=== PATIENT | male | born 1980 | race Caucasian/White ===

== ENCOUNTER 2018-10-05 05:41 | Inpatient (IN) | payer MEDICARE, OTHER ==
[~2018-10-05] VITALS: Ht 167.6 cm; Wt 79.5 kg
[2018-10-05] VITALS (58 sets, daily range): BP systolic 66–107; BP diastolic 36–89; PULSE 66–130; RESP 28; Ht 167.6 cm; Wt 79.5 kg
[2018-10-05] MEDS ORDERED: VANCOMYCIN 1 GM (PMX) 250 ML IVPB STA (05:52)
[2018-10-05] MEDS ORDERED: SODIUM CHLORIDE 0.9% 1L BAG IV* STA (05:52)
[2018-10-05] MEDS ORDERED: CEFEPIME 2GM/50 ML (PMX) 50 ML IVPB STA (05:52)
[2018-10-05] MEDS ORDERED: DOPamine-D5W 1.6 MG/ML 250 ML IV STA (06:08)
[2018-10-05] MEDS ORDERED: FENTAnyl 50 MCG/ML VIAL IV STA (06:09)
[2018-10-05] MEDS ORDERED: SODIUM CHLORIDE 0.9% 500 ML BAG IV* STA (06:09)
[2018-10-05] MEDS ORDERED: VECURONIUM 100 MG in DEXTROSE 5% 100 ML IV ONE (06:09)
[2018-10-05] MEDS ORDERED: VECURONIUM 10 MG VIAL IV ONE (06:30)
--- NOTE | 2018-10-05 06:40 | ERD ---
ER Documentation Chief Complaint Chief Complaint BIB RA81 in cardiac arrest HPI Patient is a 37-year-old male who presents in full cardiac arrest. The patient was found by paramedics at 4:50 AM in full cardiac arrest. He had had 20 minutes of downtime without CPR prior to go go dancer arrival. There was a significant amount of medications given by paramedics while in the field. The patient was being bagged and receiving CPR throughout. They were able to get pulses back once but quickly lost them. The patient did receive the fibrillation for ventricular fibrillation at one point. The brother brought in pill bottles of alprazolam and [place] and there is a concern for potential overdose. I cannot obtain history otherwise so please note the history and physical exam is limited. ROS All systems reviewed and are negative except as per history of present illness. PMhx/Soc Medical and Surgical Hx: pt denies Surgical Hx Hx Respiratory Disorders: Yes (asthma) Hx Alcohol Use: Yes Hx Substance Use: Yes (found 3 bottles on patient) Hx Tobacco Use: Yes Smoking Status: Never smoker FmHx Unable to obtain Physical Exam Vitals Vital Signs Date Temp Pulse Resp B/P (MAP) Pulse Ox O2 O2 Flow FiO2 Time Delivery Rate 10/05/18 Nasal 05:59 Cannula 10/05/18 96.0 52 19 63/43 (50) 100 Room Air 05:59 Physical Exam Const: For cardiac arrest, being bagged Head: Atraumatic Eyes: Pupils are fixed and dilated ENT: Being bagged by respiratory therapy Neck: Full range of motion. No meningismus. Resp: Clear to auscultation bilaterally Cardio: Regular rate and rhythm, no murmurs Abd: Soft, non tender, non distended. Normal bowel sounds Skin: No petechiae or rashes Back: No midline or flank tenderness Ext: No cyanosis, or edema Neur: GCS 3, no neurologic function or movement, pupils fixed and dilated Result Diagram: 10/05/18 0500 Results 24 hrs Laboratory Tests Test 10/05/18 05:00 10/05/18 06:17 10/05/18 06:19 White Blood Count 16.4 10^3/ul Red Blood Count 5.14 10^6/ul Hemoglobin 14.2 g/dl Hematocrit 49.4 % Mean Corpuscular Volume 96.1 fl Mean Corpuscular Hemoglobin 27.6 pg Mean Corpuscular Hemoglobin Concent 28.7 g/dl Red Cell Distribution Width 13.6 % Platelet Count 191 10^3/UL Mean Platelet Volume 10.0 fl Immature Granulocytes % 8.200 % Neutrophils % 42.3 % Lymphocytes % 43.8 % Monocytes % 4.0 % Eosinophils % 0.8 % Basophils % 0.9 % Nucleated Red Blood Cells % 0.7 /100WBC Immature Granulocytes # 1.340 10^3/ul Neutrophils # 7.0 10^3/ul Lymphocytes # 7.2 10^3/ul Monocytes # 0.7 10^3/ul Eosinophils # 0.1 10^3/ul Basophils # 0.2 10^3/ul Nucleated Red Blood Cells # 0.1 10^3/ul Prothrombin Time 18.7 Sec Prothrombin Time Ratio 1.5 INR International Normalized Ratio 1.55 Activated Partial Thromboplast Time Pending POC Venous Lactate 10.0 mmol/L Bedside Glucose 306 mg/dL Current Medications Medications Dose Sig/[place] Start Time Status Last (Trade) Ordered Route PRN Stop Time Admin Dose Reason Admin Sodium 2,390 ml BOLUS OVER 2 10/05/18 DC Chloride HOURS STAT 05:52 10/05/18 (NS) IV* 05:54 Cefepime HCl 50 ml @ ONCE STAT 10/05/18 DC 100 mls/hr IVPB 05:52 10/05/18 06:21 Vancomycin 250 ml @ ONCE STAT 10/05/18 HCl 125 mls/hr IVPB 05:52 10/05/18 07:51 Dopamine 250 ml @ 0 ONCE STAT 10/05/18 DC 10/05/18 HCl/ mls/hr IV 06:08 10/05/18 06:07 Dextrose 06:09 Sodium 500 ml ONCE STAT 10/05/18 DC Chloride IV* 06:09 10/05/18 (NS) 06:12 Fentanyl 50 mcg ONCE STAT 10/05/18 DC (Sublimaze) IV 06:09 10/05/18 06:12 Midazolam 50 ml @ 2 ONCE IV 10/05/18 HCl mls/hr 06:30 Vecuronium 10 mg ONCE ONCE 10/05/18 DC [place] IV 06:30 10/05/18 ([place]cur[place]) 06:31 Vecuronium 100 ml @ [id number] 10/05/18 [place] 100 4.77 mls/hr ONCE IV 06:09 10/06/18 mg/ Dextrose 03:06 Procedures/MDM Endotracheal Intubation by me: Pre assessment performed. Pre-oxygenation performed with 100% oxygen RSI: Performed w/o complication or hypoxic events. Medications as ordered. Blade: MAC 4 video laryngoscope ET Tube: 7.5 cm Depth: 23 cm at the lip Intubation confirmed by colorimetric CO2, equal breath sounds, quiet over the stomach. Chest X-ray 1V Interpreted by me: 5 cm above the jamir ET tube. Tube will be advanced 2 cm by respiratory therapy. Central line in place, no pneumothorax, normal soft tissue. Central Line Placement by me: Patient consented, sterilely draped, full prep, gown, glove, mask, time out performed. Anesthesia: 1% lidocaine locally Location: Left subclavian Device: Multiple lumen Technique: Seldinger technique. Secured with suture. Results: Venous return from all ports with easy saline flush. No complications. Guide wire retrieved and disposed of. EKG read by me: Rate/Rhythm: Regular rate and rhythm at a normal rate Intervals: Normal Impression: Right bundle branch block without ST elevations, there are ST depressions Patient is a 37-year-old male presents in full cardiac arrest. The patient was intubated immediately upon arrival and high-quality CPR was continued. After a few rounds of CPR we did return spontaneous circulation. A central line was placed for access and pressor administration. The patient started to become bradycardic so a dopamine drip was started. The patient's lactic acid is greater than 10 on the [id number] but I doubt sepsis at this time. I doubt septic shock. I believe this is likely related to overdose and cardiac arrest. The patient will be given 30 mils per kilogram fluid bolus and vancomycin and cefepime empirically but at this point I do not see any obvious source of infection. The patient will be started on the hypothermia protocol. I spoke with Dr. Francois immediately after the EKG was done to discuss going to the cardiac Digital Specialist but we agree that given the history of overdose and an EKG which does not show ST elevations that he would not need to go directly to the cardiac Digital Specialist at this time. The patient will be admitted to the care of Dr. Monk from the panel team to a ICU bed. Critical Care: Time: 45 minutes excluding all billable procedures. Treatments/Evaluations: Close monitoring and treatment of unstable vital signs, cardiorespiratory, and neurologic status, while maintaining tight balance of fluid, respiratory, and cardiac interventions. Departure Diagnosis: Primary Impression: Respiratory failure Chronicity: acute Respiratory failure complication: hypoxia and hypercapnia Qualified Codes: J96.01 - Acute respiratory failure with hypoxia; J96.02 - Acute respiratory failure with hypercapnia Additional Impression: Cardiac arrest Condition: Critical FELISHA STANTON MD October 05, 2018 06:40
[2018-10-05] MEDS ORDERED: IPRATROPIUM (HFA) 12.9 GM INHALER INH PRN (07:00)
[2018-10-05] MEDS ORDERED: ALBUTEROL HFA 8 GM INHALER INH PRN (07:00)
[2018-10-05] MEDS ORDERED: EPINEPHrine 0.1 MG/ML SYG ONE (07:00)
[2018-10-05] MEDS ORDERED: ACETAMINOPHEN 650MG/20.3ML CUP PO PRN (07:00)
[2018-10-05] MEDS ORDERED: CA CHLORIDE 10% 10 ML SYRINGE ONE (07:00)
[2018-10-05] MEDS ORDERED: ALBU18HF INHALATION (07:13)
[2018-10-05] MEDS ORDERED: ACET1TAB40 PO (07:14)
[2018-10-05] MEDS ORDERED: ALPR2TAB PO (07:14)
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
[2018-10-05] MEDS: MIDAZOLAM (DRIP) 50 mg/50 mL 50 ML IV SCH ×2 (08:44→08:48)
--- NOTE | 2018-10-05 09:08 | CONS ---
Assessment/Plan Assessment/Plan Assessment/Plan (Daily) Cardiac arrest down for approximately 20 to 30 minutes Anoxic encephalopathy Long bout of cardiopulmonary resuscitation Hypoxic respiratory failure intubated Opioids and benzodiazepines in tox screen Both myself and Dr Fernandez has spoken to family members. We have given him an update of his current clinical condition and emphasized the fact that he has a very poor prognosis. We emphasized that we will be following his neurological condition primarily not to exclude his current catastrophic medical condition. Family members are understandably devastated. Consultation Date/Type/Reason Admit Date/Time Date/Time of Note DATE: 10/05/18 TIME: 09:06 Past Medical History Medical History: other (Unknown) Home Meds Reported Medications Acetaminophen with Codeine (Acetaminophen-Cod #3 Tablet) 1 Each Tablet, 1 TAB PO BID PRN for PAIN, #7 TAB 10/05/18 Alprazolam* (Xanax*) 2 Mg Tablet, 2 MG PO BID PRN for ANXIETY, TAB 10/05/18 Albuterol Sulfate* (Ventolin HFA*) 18 Gm Hfa.aer.ad, 2 PUFF INHALATION Q4H, #1 INHALER 10/05/18 Medications Current Medications Midazolam HCl 50 ml @ 2 mls/hr ONCE IV ; Start 10/05/18 at 06:30 Vecuronium [place] 100 mg/ Dextrose 100 ml @ 4.77 mls/hr [id number] ONCE IV ; Start 10/05/18 at 06:09; Stop 10/06/18 at 03:06 Albuterol (Ventolin Hfa) 4 puff Q2H RESP THERAPY PRN INH SHORTNESS OF BREATH; Start 10/05/18 at 07:00 Ipratropium [place] (Atrovent Hfa) 4 puff Q2H RESP THERAPY PRN INH SHORTNESS OF BREATH; Start 10/05/18 at 07:00 Acetaminophen (Tylenol Liquid) 650 mg Q6H PRN PO PAIN LEVEL 1-3 OR FEVER; Start 10/05/18 at 07:00 Pantoprazole (Protonix Iv) 40 mg DAILY@06 IV ; Start 10/05/18 at 08:00 Sodium Bicarbonate 150 meq/Dextrose 1,000 ml @ 100 mls/hr Q10H IV ; Start 10/05/18 at 07:00 Allergies: Coded Allergies: peanut oil (Verified Allergy, Unknown, 10/05/18) Past Surgical History Past Surgical Hx: other (Unknown) Family History Significant Family History: other (Unknown) Social History Alcohol Use: occasionally Smoking Status: Unknown if ever smoked Drug Use: marijuana, other (To be determined with patient's tox screen before being given opioids and benzodiazepine in the emergency room was positive for opioids and benzodiazepines) Exam/Review of Systems Exam Vitals Vital Signs Date Temp Pulse Resp B/P (MAP) Pulse Ox O2 O2 Flow FiO2 Time Delivery Rate 10/05/18 77 28 100 100 07:30 10/05/18 Nasal 06:24 Cannula 10/05/18 96.0 94/64 (74) 06:24 Constitutional: other (Intubated nonresponsive) Respiratory: congested cough, crackles/rales, diminished breath sounds, labored breathing Cardiovascular: regular rate and rhythm, nl pulses, S4 (Nonresponsive to any verbal or tactile stimulation bilateral pupils fixed dilated no oculocephalics on examination) Skin: other (No tract carmona) Results Result Diagram: 10/05/18 0805 10/05/18 0800 Results 24hrs Laboratory Tests Test 10/05/18 05:00 10/05/18 05:52 10/05/18 06:17 10/05/18 06:19 White Blood Count 16.4 H Red Blood Count 5.14 Hemoglobin 14.2 Hematocrit 49.4 Mean Corpuscular 96.1 Volume Mean Corpuscular 27.6 L Hemoglobin Mean Corpuscular 28.7 L Hemoglobin Concent Red Cell 13.6 Distribution Width Platelet Count 191 Mean Platelet 10.0 Volume Immature 8.200 H Granulocytes % Neutrophils % 42.3 Segmented 68 Neutrophils % (Manual) Band Neutrophils % 6 H (Manual) Lymphocytes % 43.8 Lymphocytes % 15 (Manual) Monocytes % 4.0 Monocytes % 8 (Manual) Eosinophils % 0.8 Eosinophils % 1 (Manual) Basophils % 0.9 Basophils % 2 (Manual) Nucleated Red 0.7 H Blood Cells % Immature 1.340 H Granulocytes # Neutrophils # 7.0 Neutrophils # 11.3 H (Manual) Band Neutrophils # 0.9 H Lymphocytes 2.4 (Manual) Lymphocytes # 7.2 H Monocytes # 0.7 Monocytes # 1.3 H (Manual) Eosinophils # 0.1 Basophils # 0.2 H Basophils # 0.3 H (Manual) Nucleated Red 0.1 H Blood Cells # Platelet Estimate NORMAL Giant Platelets 1 H Polychromasia 1+ Anisocytosis 2+ Microcytosis 2+ Prothrombin Time 18.7 H Prothrombin Time 1.5 Ratio INR International 1.55 Normalized Ratio Activated 86.9 *H Partial Thrombopla st Time Blood Gas Specimen Blood arterial Source Arterial Blood 10/05/2018 6:20:57 Date Drawn AM Arterial Blood pH 6.759 *L (Temp corrected) Arterial Blood 79.8 H pCO2 (Temp correct) Arterial Blood pO2 251.2 H (Temp corrected) Arterial Blood 11.0 L HCO3 Arterial Blood -25.8 L Base Excess Arterial Blood 98.5 H Oxygen Saturation Willie Test ACCEPTAB Arterial Blood Gas Right Radial Puncture Site Arterial 8.1 H Blood Carboxyhemog lobin Arterial Blood 0.4 Methemoglobin Blood Gas A-a O2 382.0 H Differential Oxyhemoglobin 90.1 L Percent Blood Gas 37.0 Temperature Blood Gas 20.0 Respiration Rate Blood Gas Actual 20 Respiration Rate Blood Gas Modality VENT - AC FiO2 100.0 Blood Gas Tidal 500.0 Volume Blood Gas Low PEEP 0 Setting Blood Gas Critical Peng STANTON MD Value Read Back Blood Gas Notified MA Whom Blood Gas Notified 10/05/2018 6:31:54 Time AM POC Venous Lactate 10.0 *H Bedside Glucose 306 H Test 10/05/18 07:14 10/05/18 08:00 10/05/18 08:05 Urine Color YELLOW Urine Clarity CLOUDY A Urine pH 6.0 Urine Specific 1.022 [place] Urine Ketones NEGATIVE Urine Nitrite NEGATIVE Urine Bilirubin NEGATIVE Urine Urobilinogen NEGATIVE Urine Leukocyte NEGATIVE Esterase Urine Microscopic 76 H RBC Urine Microscopic 22 H WBC Urine Bacteria FEW A Urine Mucus MANY A Urine Hemoglobin 2+ H Urine Glucose 2+ H Urine Total 3+ H Protein Urine Opiates Positive Screen Urine Barbiturates Negative Urine Amphetamines Negative Screen Urine Positive Benzodiazepines Screen Urine Cocaine Negative Screen Urine Cannabinoids Positive Sodium Level 145 H Potassium Level 6.1 *H Chloride Level 107 Carbon Dioxide 17 L Level Anion Gap 21 H Blood Urea 14 Nitrogen Creatinine 1.80 H Est Glomerular 43 L Filtrat Rate mL/min Glucose Level 390 H Lactic Acid Level 14.9 *H Calcium Level 9.3 Phosphorus Level 15.0 H Magnesium Level 3.3 H Total Bilirubin 0.2 Direct Bilirubin 0.00 Indirect Bilirubin 0.2 Aspartate Amino 297 H Transf (AST/SGOT) Alanine 373 H Aminotransferase ( ALT/SGPT) Alkaline 71 Phosphatase Creatine Kinase 588 H Creatine Kinase 1.8 Index Creatinine Kinase 10.40 H MB (Mass) Troponin I 0.261 *H Total Protein 5.9 L Albumin 3.4 Globulin 2.50 Albumin/Globulin 1.36 Ratio Lipase 1085 H Salicylates Level < 1.0 L Acetaminophen < 10.0 L Level Ethyl Alcohol < 10.0 H Level Platelet Count 309 Prothrombin Time 18.8 H Prothrombin Time 1.5 Ratio INR International 1.56 Normalized Ratio Activated 81.3 *H Partial Thrombopla st Time Thrombin Time 28.4 H Fibrinogen 142.0 L Plasma Fibrin Degradation Produc ts D-Dimer Pending Medications Medication Current Medications Midazolam HCl 50 ml @ 2 mls/hr ONCE IV ; Start 10/05/18 at 06:30 Vecuronium [place] 100 mg/ Dextrose 100 ml @ 4.77 mls/hr [id number] ONCE IV ; Start 10/05/18 at 06:09; Stop 10/06/18 at 03:06 Albuterol (Ventolin Hfa) 4 puff Q2H RESP THERAPY PRN INH SHORTNESS OF BREATH; Start 10/05/18 at 07:00 Ipratropium [place] (Atrovent Hfa) 4 puff Q2H RESP THERAPY PRN INH SHORTNESS OF BREATH; Start 10/05/18 at 07:00 Acetaminophen (Tylenol Liquid) 650 mg Q6H PRN PO PAIN LEVEL 1-3 OR FEVER; Start 10/05/18 at 07:00 Pantoprazole (Protonix Iv) 40 mg DAILY@06 IV ; Start 10/05/18 at 08:00 Sodium Bicarbonate 150 meq/Dextrose 1,000 ml @ 100 mls/hr Q10H IV ; Start 10/05/18 at 07:00 SAIMA WILDER October 05, 2018 09:08
[2018-10-05] MEDS: SODIUM BICARBONATE (IV ADD) 150 MEQ in DEXTROSE 5% 1,000 ML IV SCH ×3 (09:12→19:21)
[2018-10-05] MEDS: ACCU-CHEK XX SCH ×15 (10:00→23:56)
[2018-10-05] MEDS ORDERED: DEXTROSE 50% 50 ML SYRINGE IV PRN ×2 (10:00)
--- NOTE | 2018-10-05 11:03 | CONS ---
Assessment/Plan Assessment/Plan Assessment/Plan (Daily) Chest x-ray showing bilateral infiltrates indicative of possibly underlying pulmonary edema versus pneumonia. Ventilator setting; AC of 28, tidal volume 550, PEEP of 0, 100% FiO2. Patient is on hypothermia protocol and is paralyzed and sedated. Assessment and recommendations; 1. Patient admitted with cardiac arrest with long CPR lasting 1 hour likely with ensuing severe anoxic brain injury. Pupils are dilated and fixed. 2. Bilateral pulmonary edema versus possible aspiration pneumonia. 3. Profound metabolic acidosis. 4. Likely acute renal injury. 5. Mild hypotension. Continue current supportive care. Obtain another ABG. Further recommendations once ABG is performed. Broad-spectrum antimicrobial coverage. Monitor renal function. Prognosis extremely guarded and will depend entirely upon adequate mental status recovery. 35 minutes of critical care time was spent evaluating the patient. Consultation Date/Type/Reason Admit Date/Time Date of Consultation: October 05, 2018 Type of Consult Pulmonary/critical care Patient is a 37-year-old male who was brought into the hospital after cardiac arrest event at home. Long CPR was done lasting 1 hour with revival of vital signs. Patient is currently on hypothermia protocol and orally intubated. Past medical history; noncontributory. Medications; reviewed. Allergies; peanut oil. Social history; not available. Family history; not available. Occupational history; not available. Review of systems; unable to be obtained. General exam; young male, orally intubated, on hypothermia protocol. Sedated and paralyzed. Date/Time of Note DATE: 10/05/18 TIME: 10:59 Past Medical History Medical History: other (Unknown) Home Meds Reported Medications Acetaminophen with Codeine (Acetaminophen-Cod #3 Tablet) 1 Each Tablet, 1 TAB PO BID PRN for PAIN, #7 TAB 10/05/18 Alprazolam* (Xanax*) 2 Mg Tablet, 2 MG PO BID PRN for ANXIETY, TAB 10/05/18 Albuterol Sulfate* (Ventolin HFA*) 18 Gm Hfa.aer.ad, 2 PUFF INHALATION Q4H, #1 INHALER 10/05/18 Medications Current Medications Midazolam HCl 50 ml @ 2 mls/hr ONCE IV Last administered on 10/05/18at 08:48; Admin Dose 4.77 MLS/HR; Start 10/05/18 at 06:30 Vecuronium [place] 100 mg/ Dextrose 100 ml @ 4.77 mls/hr [id number] ONCE IV ; Start 10/05/18 at 06:09; Stop 10/06/18 at 03:06 Albuterol (Ventolin Hfa) 4 puff Q2H RESP THERAPY PRN INH SHORTNESS OF BREATH; Start 10/05/18 at 07:00 Ipratropium [place] (Atrovent Hfa) 4 puff Q2H RESP THERAPY PRN INH SHORTNESS OF BREATH; Start 10/05/18 at 07:00 Acetaminophen (Tylenol Liquid) 650 mg Q6H PRN PO PAIN LEVEL 1-3 OR FEVER; Start 10/05/18 at 07:00 Pantoprazole (Protonix Iv) 40 mg DAILY@06 IV ; Start 10/05/18 at 08:00 Sodium Bicarbonate 150 meq/Dextrose 1,000 ml @ 100 mls/hr Q10H IV Last administered on 10/05/18at 09:12; Admin Dose 100 MLS/HR; Start 10/05/18 at 07:00 Diagnostic Test (Pha) (Accu-Chek) 1 ea Q1H XX ; Start 10/05/18 at 10:00 Insulin Human Regular 100 unit/ Sodium Chloride 100 ml @ 0 mls/hr PER PROTOCOL IV ; Start 10/05/18 at 10:00 Miscellaneous Information (* Miscellaneous Pharmacy Order) Treatment of Hypog lycemia: 1.BG 51... Per protocol XX ; Start 10/05/18 at 10:00 Dextrose (D50w Syringe) 25 ml Q15M PRN IV .DECREASED GLUCOSE; Start 10/05/18 at 10:00 Dextrose (D50w Syringe) 50 ml Q15M PRN IV .DECREASED GLUCOSE; Start 10/05/18 at 10:00 Allergies: Coded Allergies: peanut oil (Verified Allergy, Unknown, 10/05/18) Past Surgical History Past Surgical Hx: other (Unknown) Social History Alcohol Use: occasionally Smoking Status: Unknown if ever smoked Drug Use: marijuana, other (To be determined with patient's tox screen before being given opioids and benzodiazepine in the emergency room was positive for opioids and benzodiazepines) Exam/Review of Systems Exam Vitals Vital Signs Date Temp Pulse Resp B/P (MAP) Pulse Ox O2 O2 Flow FiO2 Time Delivery Rate 10/05/18 90.0 102 28 86/54 (65) 96 09:45 10/05/18 Mechanical 09:45 Ventilator 10/05/18 100 07:30 Exam HEENT exam; supple neck, no JVD. No lymphadenopathy. Midline trachea. No thyromegaly. Orally intubated. Patient has fair dentition. Pupils are dilated and nonreactive to light. Chest exam; diminished breath sounds bilaterally. S1-S2 audible, no murmurs. Regular rhythm. Abdomen exam; soft, nondistended. No organomegaly. Bowel sounds are absent. Extremity exam; no peripheral edema. MANAGER COMPLETIONS exam; patient is sedated and paralyzed. Results Result Diagram: 10/05/18 0805 10/05/18 0800 Results 24hrs Laboratory Tests Test 10/05/18 05:00 10/05/18 05:52 10/05/18 06:17 10/05/18 06:19 White Blood Count 16.4 H Red Blood Count 5.14 Hemoglobin 14.2 Hematocrit 49.4 Mean Corpuscular 96.1 Volume Mean Corpuscular 27.6 L Hemoglobin Mean Corpuscular 28.7 L Hemoglobin Concent Red Cell 13.6 Distribution Width Platelet Count 191 Mean Platelet 10.0 Volume Immature 8.200 H Granulocytes % Neutrophils % 42.3 Segmented 68 Neutrophils % (Manual) Band Neutrophils % 6 H (Manual) Lymphocytes % 43.8 Lymphocytes % 15 (Manual) Monocytes % 4.0 Monocytes % 8 (Manual) Eosinophils % 0.8 Eosinophils % 1 (Manual) Basophils % 0.9 Basophils % 2 (Manual) Nucleated Red 0.7 H Blood Cells % Immature 1.340 H Granulocytes # Neutrophils # 7.0 Neutrophils # 11.3 H (Manual) Band Neutrophils # 0.9 H Lymphocytes 2.4 (Manual) Lymphocytes # 7.2 H Monocytes # 0.7 Monocytes # 1.3 H (Manual) Eosinophils # 0.1 Basophils # 0.2 H Basophils # 0.3 H (Manual) Nucleated Red 0.1 H Blood Cells # Platelet Estimate NORMAL Giant Platelets 1 H Polychromasia 1+ Anisocytosis 2+ Microcytosis 2+ Prothrombin Time 18.7 H Prothrombin Time 1.5 Ratio INR International 1.55 Normalized Ratio Activated 86.9 *H Partial Thrombopla st Time Blood Gas Specimen Blood arterial Source Arterial Blood 10/05/2018 6:20:57 Date Drawn AM Arterial Blood pH 6.759 *L (Temp corrected) Arterial Blood 79.8 H pCO2 (Temp correct) Arterial Blood pO2 251.2 H (Temp corrected) Arterial Blood 11.0 L HCO3 Arterial Blood -25.8 L Base Excess Arterial Blood 98.5 H Oxygen Saturation Willie Test ACCEPTAB Arterial Blood Gas Right Radial Puncture Site Arterial 8.1 H Blood Carboxyhemog lobin Arterial Blood 0.4 Methemoglobin Blood Gas A-a O2 382.0 H Differential Oxyhemoglobin 90.1 L Percent Blood Gas 37.0 Temperature Blood Gas 20.0 Respiration Rate Blood Gas Actual 20 Respiration Rate Blood Gas Modality VENT - AC FiO2 100.0 Blood Gas Tidal 500.0 Volume Blood Gas Low PEEP 0 Setting Blood Gas Critical Peng STANTON MD Value Read Back Blood Gas Notified MA Whom Blood Gas Notified 10/05/2018 6:31:54 Time AM POC Venous Lactate 10.0 *H Bedside Glucose 306 H Test 10/05/18 07:14 10/05/18 08:00 10/05/18 08:05 10/05/18 10:01 Urine Color YELLOW Urine Clarity CLOUDY A Urine pH 6.0 Urine Specific 1.022 [place] Urine Ketones NEGATIVE Urine Nitrite NEGATIVE Urine Bilirubin NEGATIVE Urine Urobilinogen NEGATIVE Urine Leukocyte NEGATIVE Esterase Urine Microscopic 76 H RBC Urine Microscopic 22 H WBC Urine Bacteria FEW A Urine Mucus MANY A Urine Hemoglobin 2+ H Urine Glucose 2+ H Urine Total 3+ H Protein Urine Opiates Positive Screen Urine Barbiturates Negative Urine Amphetamines Negative Screen Urine Positive Benzodiazepines Screen Urine Cocaine Negative Screen Urine Cannabinoids Positive Sodium Level 145 H Potassium Level 6.1 *H Chloride Level 107 Carbon Dioxide 17 L Level Anion Gap 21 H Blood Urea 14 Nitrogen Creatinine 1.80 H Est Glomerular 43 L Filtrat Rate mL/min Glucose Level 390 H Lactic Acid Level 14.9 *H Calcium Level 9.3 Phosphorus Level 15.0 H Magnesium Level 3.3 H Total Bilirubin 0.2 Direct Bilirubin 0.00 Indirect Bilirubin 0.2 Aspartate Amino 297 H Transf (AST/SGOT) Alanine 373 H Aminotransferase ( ALT/SGPT) Alkaline 71 Phosphatase Creatine Kinase 588 H Creatine Kinase 1.8 Index Creatinine Kinase 10.40 H MB (Mass) Troponin I 0.261 *H Total Protein 5.9 L Albumin 3.4 Globulin 2.50 Albumin/Globulin 1.36 Ratio Lipase 1085 H Salicylates Level < 1.0 L Acetaminophen < 10.0 L Level Ethyl Alcohol < 10.0 H Level Platelet Count 309 Prothrombin Time 18.8 H Prothrombin Time 1.5 Ratio INR International 1.56 Normalized Ratio Activated 81.3 *H Partial Thrombopla st Time Thrombin Time 28.4 H Fibrinogen 142.0 L Plasma Fibrin Degradation Produc ts D-Dimer > 24482.00 H Amylase Level 583 H Bedside Glucose 139 Test 10/05/18 10:02 Lactic Acid Level 4.9 *H Medications Medication Current Medications Midazolam HCl 50 ml @ 2 mls/hr ONCE IV Last administered on 10/05/18at 08:48; Admin Dose 4.77 MLS/HR; Start 10/05/18 at 06:30 Vecuronium [place] 100 mg/ Dextrose 100 ml @ 4.77 mls/hr [id number] ONCE IV ; Start 10/05/18 at 06:09; Stop 10/06/18 at 03:06 Albuterol (Ventolin Hfa) 4 puff Q2H RESP THERAPY PRN INH SHORTNESS OF BREATH; Start 10/05/18 at 07:00 Ipratropium [place] (Atrovent Hfa) 4 puff Q2H RESP THERAPY PRN INH SHORTNESS OF BREATH; Start 10/05/18 at 07:00 Acetaminophen (Tylenol Liquid) 650 mg Q6H PRN PO PAIN LEVEL 1-3 OR FEVER; Start 10/05/18 at 07:00 Pantoprazole (Protonix Iv) 40 mg DAILY@06 IV ; Start 10/05/18 at 08:00 Sodium Bicarbonate 150 meq/Dextrose 1,000 ml @ 100 mls/hr Q10H IV Last administered on 10/05/18at 09:12; Admin Dose 100 MLS/HR; Start 10/05/18 at 07:00 Diagnostic Test (Pha) (Accu-Chek) 1 ea Q1H XX ; Start 10/05/18 at 10:00 Insulin Human Regular 100 unit/ Sodium Chloride 100 ml @ 0 mls/hr PER PROTOCOL IV ; Start 10/05/18 at 10:00 Miscellaneous Information (* Miscellaneous Pharmacy Order) Treatment of Hypoglycemia: 1.BG 51... Per protocol XX ; Start 10/05/18 at 10:00 Dextrose (D50w Syringe) 25 ml Q15M PRN IV .DECREASED GLUCOSE; Start 10/05/18 at 10:00 Dextrose (D50w Syringe) 50 ml Q15M PRN IV .DECREASED GLUCOSE; Start 10/05/18 at 10:00 SELVIN FERNANDEZ October 05, 2018 11:03
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
[2018-10-05] MEDS: PANTOPRAZOLE 40 MG INJ IV SCH (11:40)
[2018-10-05] MEDS: INSULIN HUMAN REGULAR 100 UNIT in SOD CHLORIDE 0.9% 99 ML IV SCH (12:14)
[2018-10-05] MEDS: DOPamine-D5W 1.6 MG/ML 250 ML IV SCH ×3 (12:40→23:41)
[2018-10-05] MEDS ORDERED: POTASSIUM CHLORIDE 50 ML IVPB PRN (14:00)
[2018-10-05] MEDS ORDERED: MAGNESIUM SULFATE 2 GM/50 ML 50 ML IVPB PRN (14:00)
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
[2018-10-05] MEDS: PIPER-TAZO 3.375 GM IV (PMX) 100 ML IVPB SCH ×4 (14:39→23:59)
[2018-10-05] MEDS: OCULAR LUBRICANT 3.5 GM OPH OINT BOTH EYES SCH ×2 (14:54→20:42)
[2018-10-05] MEDS: ARTIFICIAL TEARS 15 ML OPH BOTH EYES SCH ×2 (14:54→20:42)
[2018-10-05] MEDS ORDERED: MIDAZOLAM (DRIP) 50 mg/50 mL 50 ML IV SCH (16:00)
[2018-10-05] MEDS: NORepinephrine 32 MG in DEXTROSE 5% 218 ML IV SCH (18:12)
--- NOTE | 2018-10-05 19:02 | RADRPT ---
Echocardiogram Report Patient Name: Rod MIRANDA ID: [id number] : 1980 (37y 12m)Study Date: 10/05/2018 10:36:17 AM Gender: Joshcession #: [id number] Tech: LE Location: Ref.Physician: PUNEET BOATENG Height(Cm): BSA: Weight(Kg): Quality: GoodAccount #: Procedures: Echocardiographic Report: Transthoracic echocardiogram with complete 2D, M-Mode, and doppler examination. Indications: Cardiac Arrest. Measurements: 2D/M Mode Doppler Measurement Value Normal Range Measurement Value Normal Range LVIDd 2D 4.0 [ 4.2 - 5.8 ] cm AV Mean Jez 0.6 [ 70.0 - 90.0 ] cm/sec LVIDs 2D 2.8 [ 2.5 - 4.0 ] cm AV Mean PG 1.0 [ 2.0 - 4.0 ] mmHg LVPWd 2D 1.0 [ 0.6 - 1.0 ] cm AV Peak Jez 0.8 [ 100.0 - 170.0 ] cm/sec IVSd 2D 0.9 [ 0.6 - 1.0 ] cm AV Peak PG 3.0 [ 2.0 - 9.0 ] mmHg EDV 2D 71.3 [ 62.0 - 150.0 ] ml AV VTI 10.2 cm ESV 2D 29.3 [ 21.0 - 61.0 ] ml LVOT Peak Jez 0.7 [ 70.0 - 110.0 ] cm/sec EF 2D 58.9 [ 52.0 - 72.0 ] percent LVOT Peak PG 2.0 [ 2.0 - 6.0 ] mmHg LVOT Diam 2.1 [ 2.3 - 2.9 ] cm MV E Peak Jez 0.4 [ 60.0 - 130.0 ] cm/sec MV A Peak Jez 0.6 [ 100.0 - 120.0 ] cm/sec MV E/A 0.7 [ 0.8 - 1.5 ] ratio MV Decel Time 190 [ 104 - 258 ] msec Lat E` Jez 0.1 [ 10.0 - 15.0 ] cm/sec Lateral E/E` 6.7 [ 1.0 - 2.0 ] ratio Med E` Jez 0.0 cm/sec MV E/A 0.7 [ 0.8 - 1.5 ] ratio TR Peak Jez 2.1 [ 100.0 - 280.0 ] cm/sec TR Peak PG 17.0 mmHg PV Peak Jez 0.6 [ 40.0 - 80.0 ] cm/sec PV Peak PG 2.0 mmHg Findings: Left Ventricle: Normal left ventricular systolic function. Normal left ventricular cavity size. Normal left ventricular wall thickness. Ejection fraction is visually estimated at 55 %. Tissue Doppler/Mitral Doppler indices are consistent with impaired relaxation (Stage I diastolic dysfunction). Right Ventricle: Normal right ventricular size. Normal right ventricular systolic function. Left Atrium: The left atrium is normal in size. Right Atrium: The right atrium is normal in size. Mitral Valve: Normal appearance of the mitral valve. Trace mitral regurgitation. Aortic Valve: Normal appearance of the aortic valve. No significant aortic stenosis or insufficiency. Tricuspid Valve: Normal appearance of the tricuspid valve. There is trace tricuspid regurgitation. Pulmonic Valve: Normal pulmonic valve appearance. Pericardium: Trivial pericardial effusion. Aorta: Normal aortic root. IVC: The IVC is not well visualized. Conclusions: Normal left ventricular systolic function. Normal left ventricular cavity size. Normal left ventricular wall thickness. Ejection fraction is visually estimated at 55 %. Tissue Doppler/Mitral Doppler indices are consistent with impaired relaxation (Stage I diastolic dysfunction). Normal appearance of the mitral valve. Trace mitral regurgitation. Normal appearance of the tricuspid valve. There is trace tricuspid regurgitation. Trivial pericardial effusion. Electronically Signed By: Kp Main 2018-10-05 19:01:50 PDT
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
[2018-10-06] VITALS (100 sets, daily range): BP systolic 50–113; BP diastolic 42–86; PULSE 88–140; RESP 18–28
[2018-10-06] MEDS: ACCU-CHEK XX SCH ×24 (01:56→23:48)
[2018-10-06] MEDS: OCULAR LUBRICANT 3.5 GM OPH OINT BOTH EYES SCH ×4 (02:46→21:13)
[2018-10-06] MEDS: ARTIFICIAL TEARS 15 ML OPH BOTH EYES SCH ×4 (02:46→21:13)
[2018-10-06] MEDS: PANTOPRAZOLE 40 MG INJ IV SCH (05:46)
[2018-10-06] MEDS: PIPER-TAZO 3.375 GM IV (PMX) 100 ML IVPB SCH ×4 (05:47→23:46)
[2018-10-06] MEDS: SODIUM BICARBONATE (IV ADD) 150 MEQ in DEXTROSE 5% 1,000 ML IV SCH (06:20)
[2018-10-06] MEDS ORDERED: D5W-0.45 NACL + KCL 10 MEQ 1,000 ML IV SCH (07:00)
--- NOTE | 2018-10-06 07:06 | PN ---
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 Methemoglobin Blood Gas A-a O2 148.3 H Differential Oxyhemoglobin 97.6 Percent Blood Gas 36.0 Temperature Blood Gas 28.0 Respiration Rate Blood Gas Actual 28 Respiration Rate Blood Gas VENT - AC Modality FiO2 40.0 Blood Gas Tidal 550.0 Volume Blood Gas Low 5.0 PEEP Setting Blood Gas Arthur BULLOCK RN Critical Value Read Back Blood Gas Arthur RANGEL RCP Notified Whom Blood Gas 10/06/2018 5:54:0 Notified Time 0 AM Medications Medication Current Medications Albuterol (Ventolin Hfa) 4 puff Q2H RESP THERAPY PRN INH SHORTNESS OF BREATH; Start 10/05/18 at 07:00 Ipratropium [place] (Atrovent Hfa) 4 puff Q2H RESP THERAPY PRN INH SHORTNESS OF BREATH; Start 10/05/18 at 07:00 Acetaminophen (Tylenol Liquid) 650 mg Q6H PRN PO PAIN LEVEL 1-3 OR FEVER; Start 10/05/18 at 07:00 Pantoprazole (Protonix Iv) 40 mg DAILY@06 IV Last administered on 10/06/18at 05 :46; Admin Dose 40 MG; Start 10/05/18 at 08:00 Diagnostic Test (Pha) (Accu-Chek) 1 ea Q1H XX Last administered on 10/06/18at 06:10; Admin Dose 1 EA; Start 10/05/18 at 10:00 Insulin Human Regular 100 unit/ Sodium Chloride 100 ml @ 0 mls/hr PER PROTOCOL IV Last administered on 10/05/18at 12:14; Admin Dose 1 MLS/HR; Start 10/05/18 at 10:00 Miscellaneous Information (* Miscellaneous Pharmacy Order) Treatment of Hypoglycemia: 1.BG 51... Per protocol XX ; Start 10/05/18 at 10:00 Dextrose (D50w Syringe) 25 ml Q15M PRN IV .DECREASED GLUCOSE; Start 10/05/18 at 10:00 Dextrose (D50w Syringe) 50 ml Q15M PRN IV .DECREASED GLUCOSE; Start 10/05/18 at 10:00 Dopamine HCl/ Dextrose 250 ml @ 5.966 mls/ hr TITRATE IV Last administered on 10/05/18at 23:41; Admin Dose 29.59 MLS/HR; Start 10/05/18 at 13:00 Eye Lubricant (Akwa Oint) 1 applic Q6H BOTH EYES Last administered on 10/06/18 02:46; Admin Dose 1 APPLIC; Start 10/05/18 at 15:00 Eye Lubricant (Artificial Tears Oph) 2 drop Q6H BOTH EYES Last administered on 10/06/18 02:46; Admin Dose 2 DROP; Start 10/05/18 at 15:00 Magnesium Sulfate 50 ml @ 25 mls/hr PRN PRN IVPB PER TTM PROTOCOL Last administered on 10/05/18 19:59; Admin Dose 25 MLS/HR; Start 10/05/18 at 14:00 Potassium Chloride 50 ml @ 25 mls/hr PRN PRN IVPB PER TTM PROTOCOL; Start 10/05/18 at 14:00 Piperacillin Sod/ Tazobactam Sod 100 ml @ 200 mls/hr Q6 IVPB Last administered on 10/06/18 05:47; Admin Dose 200 MLS/HR; Start 10/05/18 at 14:00 Midazolam HCl 50 ml @ 1 mls/hr TITRATE IV Last administered on 10/05/18 17:23; Admin Dose 1 MLS/HR; Start 10/05/18 at 16:00 Norepinephrine 32 mg/Dextrose 250 ml @ 0.47 mls/hr TITRATE IV Last administered on 10/05/18 18:12; Admin Dose 0.47 MLS/HR; Start 10/05/18 at 18:30 Potassium Chloride/Dextrose/ Sod Cl 1,000 ml @ 100 mls/hr Q10H IV ; Start 10/06/18 at 07:00; Status KINGSTON LEIJA DO October 06, 2018 07:06
[2018-10-06] MEDS: DOPamine-D5W 1.6 MG/ML 250 ML IV SCH ×3 (08:21→23:09)
[2018-10-06] MEDS: D5W-0.45 NACL + KCL 10 MEQ 1,000 ML IV SCH ×3 (08:24→21:18)
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
[2018-10-06] MEDS ORDERED: POTASSIUM PHOSPHATE 30 MM in SOD CHLORIDE 0.9% 250 ML IVPB SCH (10:30)
--- NOTE | 2018-10-06 10:48 | CONS ---
Consult Date/Type/Reason Admit Date/Time October 05, 2018 at 06:45 Initial Consult Date 10/05/18 Type of Consultation: Pulm/CCM Date/Time of Note DATE: 10/06/18 TIME: 10:44 Subjective Coming off hypothermia protocol. Comatose. Pupils fixed and dilated. No corneals. Objective Vitals Vital Signs Date Temp Pulse Resp B/P (MAP) Pulse Ox O2 O2 Flow FiO2 Time Delivery Rate 10/06/18 96.7 121 18 104/79 99 10:00 (87) 10/06/18 Mechanical 10:00 Ventilator 10/06/18 40 08:00 Intake and Output 10/05/18 10/05/18 10/06/18 1515:00 23:00 07:00 IntakeIntake Total 788.15 ml 1439.103 ml 782.95 ml OutputOutput Total 725 ml 850 ml 1385 ml BalanceBalance 63.15 ml 589.103 ml -602.05 ml Exam HEENT: Neck supple; no JVD; no LAD: + ET tube CVS: RRR, S1 and S2 CHEST: Clear ABD: Soft, NT, + BS EXT: No c/c/e NEURO: Comatose, flaccid; no GAG; no corneal reflex; pupils fixed and dilated Results/Medications Result Diagram: 10/06/1843910/06/18439 Results 24 hrs Laboratory Tests Test 10/05/18 10:59 10/05/18 12:09 10/05/18 13:05 10/05/18 13:06 Blood Gas Blood arterial Specimen Source Arterial Blood 10/05/2018 11:23:3 Date Drawn 2 AM Arterial Blood 7.304 L pH (Temp corrected) Arterial Blood 39.5 pCO2 (Temp correct) Arterial Blood 56.1 L pO2 (Temp corrected) Arterial Blood 19.7 L HCO3 Arterial Blood -7.0 L Base Excess Arterial Blood 91.9 L Oxygen Saturatio n Willie Test ACCEPTAB Arterial Blood Right Radial Gas Puncture Site Arterial 1.4 Blood Carboxyhem oglobin Arterial Blood 0.5 Methemoglobin Blood Gas A-a O2 623.0 H Differential Oxyhemoglobin 90.2 L Percent Blood Gas 34.7 Temperature Blood Gas 28.0 Respiration Rate Blood Gas Actual 28 Respiration Rate Blood Gas VENT - AC Modality FiO2 100.0 Blood Gas Tidal 550.0 Volume Blood Gas Low 5.0 PEEP Setting Blood Gas BILL MILLER Critical Value Read Back Blood Gas TM Notified Whom Blood Gas 10/05/2018 11:37:0 Notified Time 5 AM Bedside Glucose 145 Lactic Acid 4.1 *H Level White Blood 35.1 #H Count Red Blood Count 6.03 Hemoglobin 16.7 Hematocrit 51.5 Mean Corpuscular 85.4 Volume Mean Corpuscular 27.7 L Hemoglobin Mean Corpuscular 32.4 Hemoglobin Diana nt Red Cell 13.5 Distribution Width Platelet Count 276 # Mean Platelet 9.0 Volume Immature 2.800 H Granulocytes % Segmented 88 H Neutrophils % (Manual) Band Neutrophils 10 H % (Manual) Lymphocytes % 2 L (Manual) Nucleated Red 3 H Blood Cells % Immature 0.970 H Granulocytes # Neutrophils # 32.1 H (Manual) Band Neutrophils 3.5 H # Lymphocytes 0.7 L (Manual) Platelet NORMAL Estimate Polychromasia 1+ Poikilocytosis 1+ Anisocytosis 2+ Microcytosis 2+ Spherocytes 1+ Sodium Level 144 Potassium Level 4.1 # Chloride Level 113 H Carbon Dioxide 20 L Level Anion Gap 11 # Blood Urea 24 H Nitrogen Creatinine 1.80 H Est Glomerular 43 L Filtrat Rate mL/min Glucose Level 141 # Calcium Level 9.0 Phosphorus Level 2.6 # Magnesium Level 2.4 Total Bilirubin 0.7 Direct Bilirubin 0.00 Indirect 0.7 Bilirubin Aspartate Amino 745 #H Transf (AST/SGOT ) Alanine 813 H Aminotransferase (ALT/SGPT) Alkaline 138 #H Phosphatase Creatine Kinase 2808 #H Creatine Kinase 1.9 Index Creatinine 53.30 H Kinase MB (Mass) Troponin I 1.320 *H Total Protein 6.6 Albumin 3.7 Globulin 2.90 Albumin/Globulin 1.27 Ratio Test 10/05/18 13:20 10/05/18 13:57 10/05/18 15:57 10/05/18 18:00 Urine Color STRAW Urine Clarity CLEAR Urine pH 7.0 Urine Specific 1.003 [place] Urine Ketones NEGATIVE Urine Nitrite NEGATIVE Urine Bilirubin NEGATIVE Urine NEGATIVE Urobilinogen Urine Leukocyte NEGATIVE Esterase Urine 2 Microscopic RBC Urine 3 Microscopic WBC Urine Bacteria FEW A Urine Yeast FEW A (Budding) Urine Hemoglobin 3+ H Urine Random 17.81 L Creatinine Urine Random < 13 L Sodium Urine Glucose 1+ H Urine Total 86.0 H Protein Bedside Glucose 127 125 Blood Gas Blood arterial Specimen Source Arterial Blood 10/05/2018 7:50:43 Date Drawn PM Arterial Blood 7.392 pH (Temp corrected) Arterial Blood 34.8 L pCO2 (Temp correct) Arterial Blood 265.7 H pO2 (Temp corrected) Arterial Blood 20.9 L HCO3 Arterial Blood -3.4 L Base Excess Arterial Blood 99.2 H Oxygen Saturatio n Willie Test ACCEPTAB Arterial Blood Left Radial Gas Puncture Site Arterial 0.3 Blood Carboxyhem oglobin Arterial Blood 0.6 Methemoglobin Blood Gas A-a O2 414.3 H Differential Oxyhemoglobin 98.3 Percent Blood Gas 36.3 Temperature Blood Gas 28.0 Respiration Rate Blood Gas Actual 28 Respiration Rate Blood Gas VENT - AC Modality FiO2 100.0 Blood Gas Tidal 550.0 Volume Blood Gas Low 5.0 PEEP Setting Blood Gas Notified Whom Blood Gas 10/05/2018 7:59:44 Notified Time PM Test 10/05/18 18:13 10/05/18 18:20 10/05/18 18:21 10/05/18 19:53 Bedside Glucose 122 119 Creatine Kinase 4615 H Creatinine 80.90 H Kinase MB (Mass) White Blood 20.3 #H Count Red Blood Count 6.25 H Hemoglobin 17.2 Hematocrit 52.1 H Mean Corpuscular 83.4 Volume Mean Corpuscular 27.5 L Hemoglobin Mean Corpuscular 33.0 Hemoglobin Diana nt Red Cell 13.5 Distribution Width Platelet Count 266 Mean Platelet 9.0 Volume Immature 1.300 H Granulocytes % Neutrophils % 87.9 H Lymphocytes % 8.5 L Monocytes % 1.8 Eosinophils % 0.2 Basophils % 0.3 Nucleated Red 0.3 H Blood Cells % Immature 0.260 H Granulocytes # Neutrophils # 17.8 H Lymphocytes # 1.7 Monocytes # 0.4 Eosinophils # 0.1 Basophils # 0.1 Nucleated Red 0.1 H Blood Cells # Prothrombin Time 16.5 H Prothrombin Time 1.3 Ratio INR 1.32 International Normalized Ratio Activated 34.5 Partial Thrombop last Time Fibrinogen 186.0 #L Phosphorus Level 2.4 L Magnesium Level 1.9 Troponin I 3.130 *H Amylase Level 2929 #H Lipase 1136 H Lactic Acid 2.7 *H Level Test 10/05/18 21:56 10/05/18 23:45 10/05/18 23:47 10/06/18 00:00 Bedside Glucose 91 121 White Blood 16.7 H Count Red Blood Count 6.09 Hemoglobin 16.8 Hematocrit 50.2 Mean Corpuscular 82.4 Volume Mean Corpuscular 27.6 L Hemoglobin Mean Corpuscular 33.5 Hemoglobin Diana nt Red Cell 13.5 Distribution Width Platelet Count 261 Mean Platelet 9.6 Volume Immature 0.500 H Granulocytes % Neutrophils % 88.1 H Lymphocytes % 7.5 L Monocytes % 3.4 Eosinophils % 0.2 Basophils % 0.3 Nucleated Red 0.2 H Blood Cells % Immature 0.090 H Granulocytes # Neutrophils # 14.8 H Lymphocytes # 1.3 Monocytes # 0.6 Eosinophils # 0.0 Basophils # 0.1 Nucleated Red 0.0 Blood Cells # Sodium Level 145 H Potassium Level 3.7 Chloride Level 114 H Carbon Dioxide 22 Level Anion Gap 9 Blood Urea 29 H Nitrogen Creatinine 2.40 H Est Glomerular 31 L Filtrat Rate mL/min Glucose Level 115 Lactic Acid 4.0 *H Level Calcium Level 8.8 Phosphorus Level 1.5 L Magnesium Level 2.7 H Creatine Kinase 5919 H Creatine Kinase 1.7 Index Creatinine 98.20 H Kinase MB (Mass) Troponin I 2.650 *H Blood Gas Blood arterial Specimen Source Arterial Blood 10/05/2018 11:51:3 Date Drawn 2 PM Arterial Blood 7.457 H pH (Temp corrected) Arterial Blood 28.5 L pCO2 (Temp correct) Arterial Blood 105.0 H pO2 (Temp corrected) Arterial Blood 19.8 L HCO3 Arterial Blood -2.6 Base Excess Arterial Blood 98.1 H Oxygen Saturatio n Willie Test ACCEPTAB Arterial Blood Left Radial Gas Puncture Site Arterial 0.3 Blood Carboxyhem oglobin Arterial Blood 0.5 Methemoglobin Blood Gas A-a O2 148.3 H Differential Oxyhemoglobin 97.3 Percent Blood Gas 36.2 Temperature Blood Gas 28.0 Respiration Rate Blood Gas Actual 28 Respiration Rate Blood Gas VENT - AC Modality FiO2 40.0 Blood Gas Tidal 500.0 Volume Blood Gas Low 5.0 PEEP Setting Blood Gas D JUAN CARLOS MAC ARTIST Notified Whom Blood Gas 10/06/2018 12:01:0 Notified Time 3 AM Test 10/06/18 01:55 10/06/18 04:14 10/06/18 04:40 10/06/18 05:51 Bedside Glucose 139 106 111 White Blood 15.9 H Count Red Blood Count 6.35 H Hemoglobin 17.6 Hematocrit 51.5 Mean Corpuscular 81.1 L Volume Mean Corpuscular 27.7 L Hemoglobin Mean Corpuscular 34.2 Hemoglobin Diana nt Red Cell 13.2 Distribution Width Platelet Count 222 Mean Platelet 9.6 Volume Immature 0.300 Granulocytes % Neutrophils % 84.5 H Segmented 60 Neutrophils % (Manual) Band Neutrophils 26 H % (Manual) Lymphocytes % 11.1 L Lymphocytes % 7 L (Manual) Monocytes % 3.5 Monocytes % 4 (Manual) Eosinophils % 0.3 Eosinophils % 1 (Manual) Basophils % 0.3 Basophils % 1 (Manual) Plasma Cells % 1 (manual) Nucleated Red 1 H Blood Cells % Immature 0.050 H Granulocytes # Neutrophils # 13.5 H Neutrophils # 10.2 H (Manual) Band Neutrophils 4.1 H # Lymphocytes 1.1 (Manual) Lymphocytes # 1.8 Monocytes # 0.6 Monocytes # 0.6 (Manual) Eosinophils # 0.1 Basophils # 0.1 Basophils # 0.1 H (Manual) Plasma Cells # 0.1 H (manual) Nucleated Red 0.0 Blood Cells # Platelet NORMAL Estimate Giant Platelets 1 H Polychromasia 1+ Hypochromasia 1+ Poikilocytosis 1+ Anisocytosis 1+ Microcytosis 1+ Prothrombin Time 16.5 H Prothrombin Time 1.3 Ratio INR 1.32 International Normalized Ratio Activated 33.9 Partial Thrombop last Time Fibrinogen 312.0 # Sodium Level 148 H Potassium Level 3.1 L Chloride Level 115 H Carbon Dioxide 24 Level Anion Gap 9 Blood Urea 30 H Nitrogen Creatinine 2.55 H Est Glomerular 29 L Filtrat Rate mL/min Glucose Level 117 Lactic Acid 3.2 *H Level Calcium Level 8.9 Phosphorus Level 1.2 L Magnesium Level 2.8 H Troponin I 1.840 *H Amylase Level 1641 #H Lipase 286 Test 10/06/18 06:00 10/06/18 08:11 10/06/18 09:59 Blood Gas Blood arterial Specimen Source Arterial Blood 10/06/2018 5:48:24 Date Drawn AM Arterial Blood 7.553 *H pH (Temp corrected) Arterial Blood 24.8 L pCO2 (Temp correct) Arterial Blood 109.5 H pO2 (Temp corrected) Arterial Blood 21.5 L HCO3 Arterial Blood 1.0 Base Excess Arterial Blood 98.5 H Oxygen Saturatio n Willie Test ACCEPTAB Arterial Blood Left Radial Gas Puncture Site Arterial 0.3 Blood Carboxyhem oglobin Arterial Blood 0.6 Methemoglobin Blood Gas A-a O2 148.3 H Differential Oxyhemoglobin 97.6 Percent Blood Gas 36.0 Temperature Blood Gas 28.0 Respiration Rate Blood Gas Actual 28 Respiration Rate Blood Gas VENT - AC Modality FiO2 40.0 Blood Gas Tidal 550.0 Volume Blood Gas Low 5.0 PEEP Setting Blood Gas Arthur BULLOCK RN Critical Value Read Back Blood Gas Arthur RANGEL RCP Notified Whom Blood Gas 10/06/2018 5:54:00 Notified Time AM Bedside Glucose 110 120 Home Meds Reported Medications Acetaminophen with Codeine (Acetaminophen-Cod #3 Tablet) 1 Each Tablet, 1 TAB PO BID PRN for PAIN, #7 TAB 10/05/18 Alprazolam* (Xanax*) 2 Mg Tablet, 2 MG PO BID PRN for ANXIETY, TAB 10/05/18 Albuterol Sulfate* (Ventolin HFA*) 18 Gm Hfa.aer.ad, 2 PUFF INHALATION Q4H, #1 INHALER 10/05/18 Medications Current Medications Albuterol (Ventolin Hfa) 4 puff Q2H RESP THERAPY PRN INH SHORTNESS OF BREATH; Start 10/05/18 at 07:00 Ipratropium [place] (Atrovent Hfa) 4 puff Q2H RESP THERAPY PRN INH SHORTNESS OF BREATH; Start 10/05/18 at 07:00 Acetaminophen (Tylenol Liquid) 650 mg Q6H PRN PO PAIN LEVEL 1-3 OR FEVER; Start 10/05/18 at 07:00 Pantoprazole (Protonix Iv) 40 mg DAILY@06 IV Last administered on 10/06/18at 05:46; Admin Dose 40 MG; Start 10/05/18 at 08:00 Diagnostic Test (Pha) (Accu-Chek) 1 ea Q1H XX Last administered on 10/06/18at 06:10; Admin Dose 1 EA; Start 10/05/18 at 10:00 Insulin Human Regular 100 unit/ Sodium Chloride 100 ml @ 0 mls/hr PER PROTOCOL IV Last administered on 10/05/18at 12:14; Admin Dose 1 MLS/HR; Start 10/05/18 at 10:00 Miscellaneous Information (* Miscellaneous Pharmacy Order) Treatment of Hypoglycemia: 1.BG 51... Per protocol XX ; Start 10/05/18 at 10:00 Dextrose (D50w Syringe) 25 ml Q15M PRN IV .DECREASED GLUCOSE; Start 10/05/18 at 10:00 Dextrose (D50w Syringe) 50 ml Q15M PRN IV .DECREASED GLUCOSE; Start 10/05/18 at 10:00 Dopamine HCl/ Dextrose 250 ml @ 5.966 mls/ hr TITRATE IV Last administered on 10/06/18 08:21; Admin Dose 29.795 MLS/HR; Start 10/05/18 at 13:00 Eye Lubricant (Akwa Oint) 1 applic Q6H BOTH EYES Last administered on 10/06/18 08:49; Admin Dose 1 APPLIC; Start 10/05/18 at 15:00 Eye Lubricant (Artificial Tears Oph) 2 drop Q6H BOTH EYES Last administered on 10/06/18 08:48; Admin Dose 2 DROP; Start 10/05/18 at 15:00 Magnesium Sulfate 50 ml @ 25 mls/hr PRN PRN IVPB PER TTM PROTOCOL Last administered on 10/05/18at 19:59; Admin Dose 25 MLS/HR; Start 10/05/18 at 14:00 Potassium Chloride 50 ml @ 25 mls/hr PRN PRN IVPB PER TTM PROTOCOL; Start 10/05/18 at 14:00 Piperacillin Sod/ Tazobactam Sod 100 ml @ 200 mls/hr Q6 IVPB Last administered on 10/06/18 05:47; Admin Dose 200 MLS/HR; Start 10/05/18 at 14:00 Midazolam HCl 50 ml @ 1 mls/hr TITRATE IV Last administered on 10/05/18 17:23; Admin Dose 1 MLS/HR; Start 10/05/18 at 16:00 Norepinephrine 32 mg/Dextrose 250 ml @ 0.47 mls/hr TITRATE IV Last administere d on 10/05/18 18:12; Admin Dose 0.47 MLS/HR; Start 10/05/18 at 18:30 Potassium Chloride/Dextrose/ Sod Cl 1,000 ml @ 100 mls/hr Q10H IV Last administered on 10/06/18 08:24; Admin Dose 100 MLS/HR; Start 10/06/18 at 08:30 Potassium Phosphate 30 mm/ Sodium Chloride 260 ml @ 65 mls/hr ONCE IVPB ; Start 10/06/18 at 10:30; Stop 10/06/18 at 16:00 Assessment/Plan Assessment/Plan (Daily) IMP: 1. s/p Cardiopulmonary Arrest 2. Anoxic Brain Injury--possible brain 3. s/p Polypharmacy OD 4. Shock 5. DARLING 6. Demand ischemia 7. Rhabdomyolysis RECS: 1. Complete rewarming 2. Follow neuro status 3. Obtain EEG 4. Consider apnea testing soon 5. For now, continue pressors 6 Palliative Care 40 min cc time CHER MERRITT MD October 06, 2018 10:48
--- NOTE | 2018-10-06 13:29 | CONS ---
Assessment/Plan Assessment/Plan Hospital Course (Demo Recall) IMPRESSION: 1. Non-ST elevation myocardial infarction in the setting of cardiopulmonary arrest likely type 2 demand infarct as a result of cardiopulmonary arrest- Troponins downtrending. EF actually normal by echo this admit 2. Status post cardiopulmonary arrest, likely primary pulmonary event. 3. Congestive heart failure- BY echo diastolic acute on chronic but likely had systolic function during time of prolonged arrest 4. Respiratory failure, status post intubation. 5. Encephalopathy. 6. Cerebral edema. 7. Renal failure. 8. Shock liver. 9. Coagulopathy. 10. Leukocytosis. 11.Hypotension-on pressors Recc: -ICU -wean pressors as tolerated -Complete rewarming -continue abx's and f/u cx data -overall poor prognosis -follow volume status Consultation Date/Type/Reason Admit Date/Time October 05, 2018 at 06:45 Initial Consult Date 10/05/18 Type of Consult Cardiology Reason for Consultation cardiac arrest Requesting Provider: SIGIFREDO TOLEDO MD Date/Time of Note DATE: 10/06/18 TIME: 13:19 Exam/Review of Systems Vital Signs Vitals Vital Signs Date Temp Pulse Resp B/P (MAP) Pulse Ox O2 O2 Flow FiO2 Time Delivery Rate 10/06/18 120 12:00 10/06/18 96.7 18 104/79 99 10:00 (87) 10/06/18 Mechanical 10:00 Ventilator 10/06/18 40 08:00 Intake and Output 10/05/18 10/05/18 10/06/18 1515:00 23:00 07:00 IntakeIntake Total 788.15 ml 1439.103 ml 782.95 ml OutputOutput Total 725 ml 850 ml 1385 ml BalanceBalance 63.15 ml 589.103 ml -602.05 ml Exam Exam Review of Systems: CONSTITUTIONAL: No fevers, chills. PULMONARY: No sob CARDIOVASCULAR: No chest pain/palpitations GASTROINTESTINAL: No nausea/vomiting. GENITOURINARY: No hematuria/dysuria. MUSCULOSKELETAL: No myagias/arthalgias. PSYCHIATRIC: The patient denies depression. NEUROLOGIC: No weakness Constitutional: other (encephalopathic) Psych: no complaints Head: normocephalic ENMT: intubated Neck: supple, jvd (9 cm water) Respiratory: other (upper airway rhoncherous sounds) Cardiovascular: other (tachycardic) Gastrointestinal: soft, non-tender Musculoskeletal: muscle tone (normal) Extremities: edema (trace/B) Neurological: unresponsive Labs Result Diagram: 10/06/18 1223 10/06/18 0440 Results 24hrs Laboratory Tests Test 10/05/18 13:20 10/05/18 13:57 10/05/18 15:57 10/05/18 18:00 Urine Color STRAW Urine Clarity CLEAR Urine pH 7.0 Urine Specific 1.003 [place] Urine Ketones NEGATIVE Urine Nitrite NEGATIVE Urine Bilirubin NEGATIVE Urine NEGATIVE Urobilinogen Urine Leukocyte NEGATIVE Esterase Urine 2 Microscopic RBC Urine 3 Microscopic WBC Urine Bacteria FEW A Urine Yeast FEW A (Budding) Urine Hemoglobin 3+ H Urine Random 17.81 L Creatinine Urine Random < 13 L Sodium Urine Glucose 1+ H Urine Total 86.0 H Protein Bedside Glucose 127 125 Blood Gas Blood arterial Specimen Source Arterial Blood 10/05/2018 7:50:43 Date Drawn PM Arterial Blood 7.392 pH (Temp corrected) Arterial Blood 34.8 L pCO2 (Temp correct) Arterial Blood 265.7 H pO2 (Temp corrected) Arterial Blood 20.9 L HCO3 Arterial Blood -3.4 L Base Excess Arterial Blood 99.2 H Oxygen Saturatio n Willie Test ACCEPTAB Arterial Blood Left Radial Gas Puncture Site Arterial 0.3 Blood Carboxyhem oglobin Arterial Blood 0.6 Methemoglobin Blood Gas A-a O2 414.3 H Differential Oxyhemoglobin 98.3 Percent Blood Gas 36.3 Temperature Blood Gas 28.0 Respiration Rate Blood Gas Actual 28 Respiration Rate Blood Gas VENT - AC Modality FiO2 100.0 Blood Gas Tidal 550.0 Volume Blood Gas Low 5.0 PEEP Setting Blood Gas Notified Whom Blood Gas 10/05/2018 7:59:44 Notified Time PM Test 10/05/18 18:13 10/05/18 18:20 10/05/18 18:21 10/05/18 19:53 Bedside Glucose 122 119 Creatine Kinase 4615 H Creatinine 80.90 H Kinase MB (Mass) White Blood 20.3 #H Count Red Blood Count 6.25 H Hemoglobin 17.2 Hematocrit 52.1 H Mean Corpuscular 83.4 Volume Mean Corpuscular 27.5 L Hemoglobin Mean Corpuscular 33.0 Hemoglobin Diana nt Red Cell 13.5 Distribution Width Platelet Count 266 Mean Platelet 9.0 Volume Immature 1.300 H Granulocytes % Neutrophils % 87.9 H Lymphocytes % 8.5 L Monocytes % 1.8 Eosinophils % 0.2 Basophils % 0.3 Nucleated Red 0.3 H Blood Cells % Immature 0.260 H Granulocytes # Neutrophils # 17.8 H Lymphocytes # 1.7 Monocytes # 0.4 Eosinophils # 0.1 Basophils # 0.1 Nucleated Red 0.1 H Blood Cells # Prothrombin Time 16.5 H Prothrombin Time 1.3 Ratio INR 1.32 International Normalized Ratio Activated 34.5 Partial Thrombop last Time Fibrinogen 186.0 #L Phosphorus Level 2.4 L Magnesium Level 1.9 Troponin I 3.130 *H Amylase Level 2929 #H Lipase 1136 H Lactic Acid 2.7 *H Level Test 10/05/18 21:56 10/05/18 23:45 10/05/18 23:47 10/06/18 00:00 Bedside Glucose 91 121 White Blood 16.7 H Count Red Blood Count 6.09 Hemoglobin 16.8 Hematocrit 50.2 Mean Corpuscular 82.4 Volume Mean Corpuscular 27.6 L Hemoglobin Mean Corpuscular 33.5 Hemoglobin Diana nt Red Cell 13.5 Distribution Width Platelet Count 261 Mean Platelet 9.6 Volume Immature 0.500 H Granulocytes % Neutrophils % 88.1 H Lymphocytes % 7.5 L Monocytes % 3.4 Eosinophils % 0.2 Basophils % 0.3 Nucleated Red 0.2 H Blood Cells % Immature 0.090 H Granulocytes # Neutrophils # 14.8 H Lymphocytes # 1.3 Monocytes # 0.6 Eosinophils # 0.0 Basophils # 0.1 Nucleated Red 0.0 Blood Cells # Sodium Level 145 H Potassium Level 3.7 Chloride Level 114 H Carbon Dioxide 22 Level Anion Gap 9 Blood Urea 29 H Nitrogen Creatinine 2.40 H Est Glomerular 31 L Filtrat Rate mL/min Glucose Level 115 Lactic Acid 4.0 *H Level Calcium Level 8.8 Phosphorus Level 1.5 L Magnesium Level 2.7 H Creatine Kinase 5919 H Creatine Kinase 1.7 Index Creatinine 98.20 H Kinase MB (Mass) Troponin I 2.650 *H Blood Gas Blood arterial Specimen Source Arterial Blood 10/05/2018 11:51:3 Date Drawn 2 PM Arterial Blood 7.457 H pH (Temp corrected) Arterial Blood 28.5 L pCO2 (Temp correct) Arterial Blood 105.0 H pO2 (Temp corrected) Arterial Blood 19.8 L HCO3 Arterial Blood -2.6 Base Excess Arterial Blood 98.1 H Oxygen Saturatio n Willie Test ACCEPTAB Arterial Blood Left Radial Gas Puncture Site Arterial 0.3 Blood Carboxyhem oglobin Arterial Blood 0.5 Methemoglobin Blood Gas A-a O2 148.3 H Differential Oxyhemoglobin 97.3 Percent Blood Gas 36.2 Temperature Blood Gas 28.0 Respiration Rate Blood Gas Actual 28 Respiration Rate Blood Gas VENT - AC Modality FiO2 40.0 Blood Gas Tidal 500.0 Volume Blood Gas Low 5.0 PEEP Setting Blood Gas D [employer] Notified Whom Blood Gas 10/06/2018 12:01:0 Notified Time 3 AM Test 10/06/18 01:55 10/06/18 04:14 10/06/18 04:40 10/06/18 05:51 Bedside Glucose 139 106 111 White Blood 15.9 H Count Red Blood Count 6.35 H Hemoglobin 17.6 Hematocrit 51.5 Mean Corpuscular 81.1 L Volume Mean Corpuscular 27.7 L Hemoglobin Mean Corpuscular 34.2 Hemoglobin Diana nt Red Cell 13.2 Distribution Width Platelet Count 222 Mean Platelet 9.6 Volume Immature 0.300 Granulocytes % Neutrophils % 84.5 H Segmented 60 Neutrophils % (Manual) Band Neutrophils 26 H % (Manual) Lymphocytes % 11.1 L Lymphocytes % 7 L (Manual) Monocytes % 3.5 Monocytes % 4 (Manual) Eosinophils % 0.3 Eosinophils % 1 (Manual) Basophils % 0.3 Basophils % 1 (Manual) Plasma Cells % 1 (manual) Nucleated Red 1 H Blood Cells % Immature 0.050 H Granulocytes # Neutrophils # 13.5 H Neutrophils # 10.2 H (Manual) Band Neutrophils 4.1 H # Lymphocytes 1.1 (Manual) Lymphocytes # 1.8 Monocytes # 0.6 Monocytes # 0.6 (Manual) Eosinophils # 0.1 Basophils # 0.1 Basophils # 0.1 H (Manual) Plasma Cells # 0.1 H (manual) Nucleated Red 0.0 Blood Cells # Platelet NORMAL Estimate Giant Platelets 1 H Polychromasia 1+ Hypochromasia 1+ Poikilocytosis 1+ Anisocytosis 1+ Microcytosis 1+ Prothrombin Time 16.5 H Prothrombin Time 1.3 Ratio INR 1.32 International Normalized Ratio Activated 33.9 Partial Thrombop last Time Fibrinogen 312.0 # Sodium Level 148 H Potassium Level 3.1 L Chloride Level 115 H Carbon Dioxide 24 Level Anion Gap 9 Blood Urea 30 H Nitrogen Creatinine 2.55 H Est Glomerular 29 L Filtrat Rate mL/min Glucose Level 117 Lactic Acid 3.2 *H Level Calcium Level 8.9 Phosphorus Level 1.2 L Magnesium Level 2.8 H Troponin I 1.840 *H Amylase Level 1641 #H Lipase 286 Test 10/06/18 06:00 10/06/18 08:11 10/06/18 09:59 10/06/18 11:54 Blood Gas Blood arterial Specimen Source Arterial Blood 10/06/2018 5:48:24 Date Drawn AM Arterial Blood 7.553 *H pH (Temp corrected) Arterial Blood 24.8 L pCO2 (Temp correct) Arterial Blood 109.5 H pO2 (Temp corrected) Arterial Blood 21.5 L HCO3 Arterial Blood 1.0 Base Excess Arterial Blood 98.5 H Oxygen Saturatio n Willie Test ACCEPTAB Arterial Blood Left Radial Gas Puncture Site Arterial 0.3 Blood Carboxyhem oglobin Arterial Blood 0.6 Methemoglobin Blood Gas A-a O2 148.3 H Differential Oxyhemoglobin 97.6 Percent Blood Gas 36.0 Temperature Blood Gas 28.0 Respiration Rate Blood Gas Actual 28 Respiration Rate Blood Gas VENT - AC Modality FiO2 40.0 Blood Gas Tidal 550.0 Volume Blood Gas Low 5.0 PEEP Setting Blood Gas Arthur BULLOCK RN Critical Value Read Back Blood Gas Arthur [facility] Notified Whom Blood Gas 10/06/2018 5:54:00 Notified Time AM Bedside Glucose 110 120 108 Test 10/06/18 12:00 10/06/18 12:23 Blood Gas Blood arterial Specimen Source Arterial Blood 10/06/2018 12:05:5 Date Drawn 7 PM Arterial Blood 7.404 pH (Temp corrected) Arterial Blood 36.3 pCO2 (Temp correct) Arterial Blood 111.3 H pO2 (Temp corrected) Arterial Blood 22.4 HCO3 Arterial Blood -2.1 Base Excess Arterial Blood 97.7 Oxygen Saturatio n Willie Test ACCEPTAB Arterial Blood Right Radial Gas Puncture Site Arterial 0.3 Blood Carboxyhem oglobin Arterial Blood 0.5 Methemoglobin Blood Gas A-a O2 133.2 H Differential Oxyhemoglobin 96.9 Percent Blood Gas 36.0 Temperature Blood Gas 18.0 Respiration Rate Blood Gas Actual 18 Respiration Rate Blood Gas VENT - AC Modality FiO2 40.0 Blood Gas Tidal 500.0 Volume Blood Gas Low 5.0 PEEP Setting Blood Gas DT Notified Whom Blood Gas 10/06/2018 12:12:5 Notified Time 2 PM White Blood 15.7 H Count Red Blood Count 5.92 Hemoglobin 16.3 Hematocrit 48.7 Mean Corpuscular 82.3 Volume Mean Corpuscular 27.5 L Hemoglobin Mean Corpuscular 33.5 Hemoglobin Diana nt Red Cell 13.5 Distribution Width Platelet Count 192 Mean Platelet 10.2 Volume Immature 0.400 Granulocytes % Neutrophils % 83.8 H Lymphocytes % 11.3 L Monocytes % 2.4 Eosinophils % 1.5 Basophils % 0.6 Nucleated Red 0.1 H Blood Cells % Immature 0.070 H Granulocytes # Neutrophils # 13.1 H Lymphocytes # 1.8 Monocytes # 0.4 Eosinophils # 0.2 Basophils # 0.1 Nucleated Red 0.0 Blood Cells # Phosphorus Level 2.4 #L Magnesium Level 2.0 Troponin I 1.040 *H Medications Medications Current Medications Albuterol (Ventolin Hfa) 4 puff Q2H RESP THERAPY PRN INH SHORTNESS OF BREATH; Start 10/05/18 at 07:00 Ipratropium Capron (Atrovent Hfa) 4 puff Q2H RESP THERAPY PRN INH SHORTNESS OF BREATH; Start 10/05/18 at 07:00 Acetaminophen (Tylenol Liquid) 650 mg Q6H PRN PO PAIN LEVEL 1-3 OR FEVER; Start 10/05/18 at 07:00 Pantoprazole (Protonix Iv) 40 mg DAILY@06 IV Last administered on 10/06/18at 05:46; Admin Dose 40 MG; Start 10/05/18 at 08:00 Diagnostic Test (Pha) (Accu-Chek) 1 ea Q1H XX Last administered on 10/06/18at 06:10; Admin Dose 1 EA; Start 10/05/18 at 10:00 Insulin Human Regular 100 unit/ Sodium Chloride 100 ml @ 0 mls/hr PER PROTOCOL IV Last administered on 10/05/18at 12:14; Admin Dose 1 MLS/HR; Start 10/05/18 at 10:00 Miscellaneous Information (* Miscellaneous Pharmacy Order) Treatment of Hypoglycemia: 1.BG 51... Per protocol XX ; Start 10/05/18 at 10:00 Dextrose (D50w Syringe) 25 ml Q15M PRN IV .DECREASED GLUCOSE; Start 10/05/18 at 10:00 Dextrose (D50w Syringe) 50 ml Q15M PRN IV .DECREASED GLUCOSE; Start 10/05/18 at 10:00 Dopamine HCl/ Dextrose 250 ml @ 5.966 mls/ hr TITRATE IV Last administered on 10/06/18 08:21; Admin Dose 29.795 MLS/HR; Start 10/05/18 at 13:00 Eye Lubricant (Akwa Oint) 1 applic Q6H BOTH EYES Last administered on 10/06/18 08:49; Admin Dose 1 APPLIC; Start 10/05/18 at 15:00 Eye Lubricant (Artificial Tears Oph) 2 drop Q6H BOTH EYES Last administered on 10/06/18 08:48; Admin Dose 2 DROP; Start 10/05/18 at 15:00 Magnesium Sulfate 50 ml @ 25 mls/hr PRN PRN IVPB PER TTM PROTOCOL Last administered on 10/05/18 19:59; Admin Dose 25 MLS/HR; Start 10/05/18 at 14:00 Piperacillin Sod/ Tazobactam Sod 100 ml @ 200 mls/hr Q6 IVPB Last administered on 10/06/18 11:27; Admin Dose 200 MLS/HR; Start 10/05/18 at 14:00 Midazolam HCl 50 ml @ 1 mls/hr TITRATE IV Last administered on 10/05/18 17:23; Admin Dose 1 MLS/HR; Start 10/05/18 at 16:00 Norepinephrine 32 mg/Dextrose 250 ml @ 0.47 mls/hr TITRATE IV Last administered on 10/05/18 18:12; Admin Dose 0.47 MLS/HR; Start 10/05/18 at 18:30 Potassium Chloride/Dextrose/ Sod Cl 1,000 ml @ 100 mls/hr Q10H IV Last administered on 10/06/18 08:24; Admin Dose 100 MLS/HR; Start 10/06/18 at 08:30 Potassium Phosphate 30 mm/ Sodium Chloride 260 ml @ 65 mls/hr ONCE IVPB Last administered on 10/06/18 11:02; Admin Dose 65 MLS/HR; Start 10/06/18 at 10:30; Stop 10/06/18 at 16:00 SIGIFREDO HERMOSILLO October 06, 2018 13:29
[2018-10-06] MEDS: POTASSIUM CHLORIDE 100 ML IVPB SCH ×3 (15:32→21:13)
[2018-10-06] MEDS ORDERED: POTASSIUM PHOSPHATE 30 MM in SOD CHLORIDE 0.9% 250 ML IVPB ONE (16:00)
[2018-10-06] MEDS: PHENYLephrine 80 MG in DEXTROSE 5% 242 ML IV SCH (22:12)
[2018-10-06] MEDS: VASOPRESSIN 60 UNIT in DEXTROSE 5% 57 ML IV SCH (23:19)
[2018-10-07] VITALS (96 sets, daily range): BP systolic 74–117; BP diastolic 45–89; PULSE 83–103; RESP 16–19
[2018-10-07] MEDS: POTASSIUM CHLORIDE 100 ML IVPB SCH (00:36)
[2018-10-07] MEDS: ACCU-CHEK XX SCH ×24 (00:37→23:54)
[2018-10-07] MEDS: PHENYLephrine 80 MG in DEXTROSE 5% 242 ML IV SCH ×4 (02:58→21:30)
[2018-10-07] MEDS: OCULAR LUBRICANT 3.5 GM OPH OINT BOTH EYES SCH ×4 (03:09→21:30)
[2018-10-07] MEDS: ARTIFICIAL TEARS 15 ML OPH BOTH EYES SCH ×4 (03:09→21:30)
[2018-10-07] MEDS: D5W-0.45 NACL + KCL 10 MEQ 1,000 ML IV SCH ×3 (03:58→17:28)
[2018-10-07] MEDS: NORepinephrine 32 MG in DEXTROSE 5% 218 ML IV SCH (04:28)
[2018-10-07] MEDS: PANTOPRAZOLE 40 MG INJ IV SCH (06:08)
[2018-10-07] MEDS: PIPER-TAZO 3.375 GM IV (PMX) 100 ML IVPB SCH ×2 (06:09→11:57)
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
--- NOTE | 2018-10-07 09:16 | CONS ---
Consult Date/Type/Reason Admit Date/Time October 05, 2018 at 06:45 Initial Consult Date 10/05/18 Type of Consultation: Pulm/CCM Requesting Provider: SIGIFREDO TOLEDO MD Date/Time of Note DATE: 10/07/18 TIME: 09:13 Subjective Comatose. On mechanical ventilation and 2 pressors. Objective Vitals Vital Signs Date Temp Pulse Resp B/P (MAP) Pulse Ox O2 O2 Flow FiO2 Time Delivery Rate 10/07/18 94 18 93/65 (74) 97 Mechanical 08:45 Ventilator 10/07/18 98.4 08:00 10/07/18 55 05:45 Intake and Output 10/06/18 10/06/18 10/07/18 1414:59 22:59 06:59 IntakeIntake Total 1119.510 ml 1618.642 ml 1970.14 ml OutputOutput Total 780 ml 2630 ml 975 ml BalanceBalance 339.510 ml -1011.358 ml 995.14 ml Exam HEENT: Neck supple; no JVD; no LAD: + ET tube CVS: RRR, S1 and S2 CHEST: Clear ABD: Soft, NT, + BS EXT: No c/c/e NEURO: Comatose, flaccid; no GAG; no corneal reflex; pupils fixed and dilated; negative oculocephalic reflex Results/Medications Result Diagram: 10/07/18 0531 10/07/18 0531 Results 24 hrs Laboratory Tests Test 10/06/18 09:59 10/06/18 11:54 10/06/18 12:00 10/06/18 12:23 Bedside Glucose 120 108 Blood Gas Specimen Blood arterial Source Arterial Blood 10/06/2018 12:05:57 Date Drawn PM Arterial Blood pH 7.404 (Temp corrected) Arterial Blood 36.3 pCO2 (Temp correct) Arterial Blood pO2 111.3 H (Temp corrected) Arterial Blood 22.4 HCO3 Arterial Blood -2.1 Base Excess Arterial Blood 97.7 Oxygen Saturation Willie Test ACCEPTAB Arterial Blood Gas Right Radial Puncture Site Arterial 0.3 Blood Carboxyhemog lobin Arterial Blood 0.5 Methemoglobin Blood Gas A-a O2 133.2 H Differential Oxyhemoglobin 96.9 Percent Blood Gas 36.0 Temperature Blood Gas 18.0 Respiration Rate Blood Gas Actual 18 Respiration Rate Blood Gas Modality VENT - AC FiO2 40.0 Blood Gas Tidal 500.0 Volume Blood Gas Low PEEP 5.0 Setting Blood Gas Notified DT Whom Blood Gas Notified 10/06/2018 12:12:52 Time PM White Blood Count 15.7 H Red Blood Count 5.92 Hemoglobin 16.3 Hematocrit 48.7 Mean Corpuscular 82.3 Volume Mean Corpuscular 27.5 L Hemoglobin Mean Corpuscular 33.5 Hemoglobin Concent Red Cell 13.5 Distribution Width Platelet Count 192 Mean Platelet 10.2 Volume Immature 0.400 Granulocytes % Neutrophils % 83.8 H Lymphocytes % 11.3 L Monocytes % 2.4 Eosinophils % 1.5 Basophils % 0.6 Nucleated Red 0.1 H Blood Cells % Immature 0.070 H Granulocytes # Neutrophils # 13.1 H Lymphocytes # 1.8 Monocytes # 0.4 Eosinophils # 0.2 Basophils # 0.1 Nucleated Red 0.0 Blood Cells # Sodium Level 154 H Potassium Level 2.4 *L Chloride Level 118 H Carbon Dioxide 20 L Level Anion Gap 16 #H Blood Urea 26 H Nitrogen Creatinine 2.22 H Est Glomerular 34 L Filtrat Rate mL/min Glucose Level 131 Calcium Level 6.3 L Phosphorus Level 2.4 #L Magnesium Level 2.0 Troponin I 1.040 *H Test 10/06/18 14:11 10/06/18 16:09 10/06/18 18:14 10/06/18 20:08 Bedside Glucose 123 126 101 127 Test 10/06/18 22:11 10/06/18 23:48 10/07/18 02:00 10/07/18 04:01 Bedside Glucose 109 137 131 117 Test 10/07/18 05:00 10/07/18 05:31 10/07/18 06:08 10/07/18 08:29 Urine Osmolality 154 L White Blood Count 17.8 H Red Blood Count 5.47 Hemoglobin 15.0 Hematocrit 46.5 Mean Corpuscular 85.0 Volume Mean Corpuscular 27.4 L Hemoglobin Mean Corpuscular 32.3 Hemoglobin Concent Red Cell 14.2 Distribution Width Platelet Count 143 # Mean Platelet 9.8 Volume Immature 0.800 H Granulocytes % Neutrophils % Segmented 48 Neutrophils % (Manual) Band Neutrophils % 37 H (Manual) Lymphocytes % Lymphocytes % 5 L (Manual) Monocytes % Monocytes % 4 (Manual) Eosinophils % Eosinophils % 3 (Manual) Basophils % Metamyelocytes % 2 H (manual) Myelocytes % 2 H (Manual) Nucleated Red 0.2 H Blood Cells % Immature 0.140 H Granulocytes # Neutrophils # Neutrophils # 9.7 H (Manual) Band Neutrophils # 6.5 H Lymphocytes 0.8 (Manual) Lymphocytes # Monocytes # Monocytes # 0.7 (Manual) Eosinophils # Basophils # Metamyelocytes # 0.3 H Myelocytes # 0.3 H Nucleated Red Blood Cells # Platelet Estimate NORMAL Giant Platelets 1 H Poikilocytosis 2+ Anisocytosis 1+ Sodium Level 151 H Potassium Level 3.5 Chloride Level 122 H Carbon Dioxide 23 Level Anion Gap 6 # Blood Urea 29 H Nitrogen Creatinine 3.23 #H Est Glomerular 22 L Filtrat Rate mL/min Glucose Level 129 Calcium Level 7.3 L Phosphorus Level 3.9 Magnesium Level 2.1 Bedside Glucose 121 144 Home Meds Reported Medications Acetaminophen with Codeine (Acetaminophen-Cod #3 Tablet) 1 Each Tablet, 1 TAB PO BID PRN for PAIN, #7 TAB 10/05/18 Alprazolam* (Xanax*) 2 Mg Tablet, 2 MG PO BID PRN for ANXIETY, TAB 10/05/18 Albuterol Sulfate* (Ventolin HFA*) 18 Gm Hfa.aer.ad, 2 PUFF INHALATION Q4H, #1 INHALER 10/05/18 Medications Current Medications Albuterol (Ventolin Hfa) 4 puff Q2H RESP THERAPY PRN INH SHORTNESS OF BREATH; Start 10/05/18 at 07:00 Ipratropium [place] (Atrovent Hfa) 4 puff Q2H RESP THERAPY PRN INH SHORTNESS OF BREATH; Start 10/05/18 at 07:00 Acetaminophen (Tylenol Liquid) 650 mg Q6H PRN PO PAIN LEVEL 1-3 OR FEVER; Start 10/05/18 at 07:00 Pantoprazole (Protonix Iv) 40 mg DAILY@06 IV Last administered on 10/07/18at 06:08; Admin Dose 40 MG; Start 10/05/18 at 08:00 Diagnostic Test (Pha) (Accu-Chek) 1 ea Q1H XX Last administered on 10/07/18at 06:08; Admin Dose 1 EA; Start 10/05/18 at 10:00 Insulin Human Regular 100 unit/ Sodium Chloride 100 ml @ 0 mls/hr PER PROTOCOL IV Last administered on 10/05/18at 12:14; Admin Dose 1 MLS/HR; Start 10/05/18 at 10:00 Miscellaneous Information (* Miscellaneous Pharmacy Order) Treatment of Hypoglycemia: 1.BG 51... Per protocol XX ; Start 10/05/18 at 10:00 Dextrose (D50w Syringe) 25 ml Q15M PRN IV .DECREASED GLUCOSE; Start 10/05/18 at 10:00 Dextrose (D50w Syringe) 50 ml Q15M PRN IV .DECREASED GLUCOSE; Start 10/05/18 at 10:00 Dopamine HCl/ Dextrose 250 ml @ 5.966 mls/ hr TITRATE IV Last administered on 10/06/18 23:09; Admin Dose 11.933 MLS/HR; Start 10/05/18 at 13:00 Eye Lubricant (Akwa Oint) 1 applic Q6H BOTH EYES Last administered on 10/07/18 08:31; Admin Dose 1 APPLIC; Start 10/05/18 at 15:00 Eye Lubricant (Artificial Tears Oph) 2 drop Q6H BOTH EYES Last administered on 10/07/18 08:30; Admin Dose 2 DROP; Start 10/05/18 at 15:00 Magnesium Sulfate 50 ml @ 25 mls/hr PRN PRN IVPB PER TTM PROTOCOL Last administered on 10/05/18 19:59; Admin Dose 25 MLS/HR; Start 10/05/18 at 14:00 Piperacillin Sod/ Tazobactam Sod 100 ml @ 200 mls/hr Q6 IVPB Last administered on 10/07/18 06:09; Admin Dose 200 MLS/HR; Start 10/05/18 at 14:00 Midazolam HCl 50 ml @ 1 mls/hr TITRATE IV Last administered on 10/05/18 17:23; Admin Dose 1 MLS/HR; Start 10/05/18 at 16:00 Norepinephrine 32 mg/Dextrose 250 ml @ 0.47 mls/hr TITRATE IV Last administered on 10/07/18 04:28; Admin Dose 2.81 MLS/HR; Start 10/05/18 at 18:30 Potassium Chloride/Dextrose/ Sod Cl 1,000 ml @ 150 mls/hr Q6H40M IV Last administered on 10/07/18 03:58; Admin Dose 150 MLS/HR; Start 10/06/18 at 08:30 Phenylephrine HCl 80 mg/Dextrose 250 ml @ 18.75 mls/ hr TITRATE IV Last administered on 10/07/18at 08:20; Admin Dose 48.75 MLS/HR; Start 10/06/18 at 21:30 Vasopressin 60 unit/Dextrose 60 ml @ 1.2 mls/hr Q12H IV Last administered on 10/06/18at 23:19; Admin Dose 1.2 MLS/HR; Start 10/06/18 at 22:30 Assessment/Plan Assessment/Plan (Daily) Results/Medications Result Diagram: 10/06/18 0440 10/06/180 Results 24 hrs Laboratory Tests Test 10/05/18 10:59 10/05/18 12:09 10/05/18 13:05 10/05/18 13:06 Blood Gas Blood arterial Specimen Source Arterial Blood 10/05/2018 11:23:3 Date Drawn 2 AM Arterial Blood 7.304 L pH (Temp corrected) Arterial Blood 39.5 pCO2 (Temp correct) Arterial Blood 56.1 L pO2 (Temp corrected) Arterial Blood 19.7 L HCO3 Arterial Blood -7.0 L Base Excess Arterial Blood 91.9 L Oxygen Saturatio n Willie Test ACCEPTAB Arterial Blood Right Radial Gas Puncture Site Arterial 1.4 Blood Carboxyhem oglobin Arterial Blood 0.5 Methemoglobin Blood Gas A-a O2 623.0 H Differential Oxyhemoglobin 90.2 L Percent Blood Gas 34.7 Temperature Blood Gas 28.0 Respiration Rate Blood Gas Actual 28 Respiration Rate Blood Gas VENT - AC Modality FiO2 100.0 Blood Gas Tidal 550.0 Volume Blood Gas Low 5.0 PEEP Setting Blood Gas BILL MILLER Critical Value Read Back Blood Gas TM Notified Whom Blood Gas 10/05/2018 11:37:0 Notified Time 5 AM Bedside Glucose 145 Lactic Acid 4.1 *H Level White Blood 35.1 #H Count Red Blood Count 6.03 Hemoglobin 16.7 Hematocrit 51.5 Mean Corpuscular 85.4 Volume Mean Corpuscular 27.7 L Hemoglobin Mean Corpuscular 32.4 Hemoglobin Diana nt Red Cell 13.5 Distribution Width Platelet Count 276 # Mean Platelet 9.0 Volume Immature 2.800 H Granulocytes % Segmented 88 H Neutrophils % (Manual) Band Neutrophils 10 H % (Manual) Lymphocytes % 2 L (Manual) Nucleated Red 3 H Blood Cells % Immature 0.970 H Granulocytes # Neutrophils # 32.1 H (Manual) Band Neutrophils 3.5 H # Lymphocytes 0.7 L (Manual) Platelet NORMAL Estimate Polychromasia 1+ Poikilocytosis 1+ Anisocytosis 2+ Microcytosis 2+ Spherocytes 1+ Sodium Level 144 Potassium Level 4.1 # Chloride Level 113 H Carbon Dioxide 20 L Level Anion Gap 11 # Blood Urea 24 H Nitrogen Creatinine 1.80 H Est Glomerular 43 L Filtrat Rate mL/min Glucose Level 141 # Calcium Level 9.0 Phosphorus Level 2.6 # Magnesium Level 2.4 Total Bilirubin 0.7 Direct Bilirubin 0.00 Indirect 0.7 Bilirubin Aspartate Amino 745 #H Transf (AST/SGOT ) Alanine 813 H Aminotransferase (ALT/SGPT) Alkaline 138 #H Phosphatase Creatine Kinase 2808 #H Creatine Kinase 1.9 Index Creatinine 53.30 H Kinase MB (Mass) Troponin I 1.320 *H Total Protein 6.6 Albumin 3.7 Globulin 2.90 Albumin/Globulin 1.27 Ratio Test 10/05/18 13:20 10/05/18 13:57 10/05/18 15:57 10/05/18 18:00 Urine Color STRAW Urine Clarity CLEAR Urine pH 7.0 Urine Specific 1.003 [place] Urine Ketones NEGATIVE Urine Nitrite NEGATIVE Urine Bilirubin NEGATIVE Urine NEGATIVE Urobilinogen Urine Leukocyte NEGATIVE Esterase Urine 2 Microscopic RBC Urine 3 Microscopic WBC Urine Bacteria FEW A Urine Yeast FEW A (Budding) Urine Hemoglobin 3+ H Urine Random 17.81 L Creatinine Urine Random < 13 L Sodium Urine Glucose 1+ H Urine Total 86.0 H Protein Bedside Glucose 127 125 Blood Gas Blood arterial Specimen Source Arterial Blood 10/05/2018 7:50:43 Date Drawn PM Arterial Blood 7.392 pH (Temp corrected) Arterial Blood 34.8 L pCO2 (Temp correct) Arterial Blood 265.7 H pO2 (Temp corrected) Arterial Blood 20.9 L HCO3 Arterial Blood -3.4 L Base Excess Arterial Blood 99.2 H Oxygen Saturatio n Willie Test ACCEPTAB Arterial Blood Left Radial Gas Puncture Site Arterial 0.3 Blood Carboxyhem oglobin Arterial Blood 0.6 Methemoglobin Blood Gas A-a O2 414.3 H Differential Oxyhemoglobin 98.3 Percent Blood Gas 36.3 Temperature Blood Gas 28.0 Respiration Rate Blood Gas Actual 28 Respiration Rate Blood Gas VENT - AC Modality FiO2 100.0 Blood Gas Tidal 550.0 Volume Blood Gas Low 5.0 PEEP Setting Blood Gas Notified Whom Blood Gas 10/05/2018 7:59:44 Notified Time PM Test 10/05/18 18:13 10/05/18 18:20 10/05/18 18:21 10/05/18 19:53 Bedside Glucose 122 119 Creatine Kinase 4615 H Creatinine 80.90 H Kinase MB (Mass) White Blood 20.3 #H Count Red Blood Count 6.25 H Hemoglobin 17.2 Hematocrit 52.1 H Mean Corpuscular 83.4 Volume Mean Corpuscular 27.5 L Hemoglobin Mean Corpuscular 33.0 Hemoglobin Diana nt Red Cell 13.5 Distribution Width Platelet Count 266 Mean Platelet 9.0 Volume Immature 1.300 H Granulocytes % Neutrophils % 87.9 H Lymphocytes % 8.5 L Monocytes % 1.8 Eosinophils % 0.2 Basophils % 0.3 Nucleated Red 0.3 H Blood Cells % Immature 0.260 H Granulocytes # Neutrophils # 17.8 H Lymphocytes # 1.7 Monocytes # 0.4 Eosinophils # 0.1 Basophils # 0.1 Nucleated Red 0.1 H Blood Cells # Prothrombin Time 16.5 H Prothrombin Time 1.3 Ratio INR 1.32 International Normalized Ratio Activated 34.5 Partial Thrombop last Time Fibrinogen 186.0 #L Phosphorus Level 2.4 L Magnesium Level 1.9 Troponin I 3.130 *H Amylase Level 2929 #H Lipase 1136 H Lactic Acid 2.7 *H Level Test 10/05/18 21:56 10/05/18 23:45 10/05/18 23:47 10/06/18 00:00 Bedside Glucose 91 121 White Blood 16.7 H Count Red Blood Count 6.09 Hemoglobin 16.8 Hematocrit 50.2 Mean Corpuscular 82.4 Volume Mean Corpuscular 27.6 L Hemoglobin Mean Corpuscular 33.5 Hemoglobin Diana nt Red Cell 13.5 Distribution Width Platelet Count 261 Mean Platelet 9.6 Volume Immature 0.500 H Granulocytes % Neutrophils % 88.1 H Lymphocytes % 7.5 L Monocytes % 3.4 Eosinophils % 0.2 Basophils % 0.3 Nucleated Red 0.2 H Blood Cells % Immature 0.090 H Granulocytes # Neutrophils # 14.8 H Lymphocytes # 1.3 Monocytes # 0.6 Eosinophils # 0.0 Basophils # 0.1 Nucleated Red 0.0 Blood Cells # Sodium Level 145 H Potassium Level 3.7 Chloride Level 114 H Carbon Dioxide 22 Level Anion Gap 9 Blood Urea 29 H Nitrogen Creatinine 2.40 H Est Glomerular 31 L Filtrat Rate mL/min Glucose Level 115 Lactic Acid 4.0 *H Level Calcium Level 8.8 Phosphorus Level 1.5 L Magnesium Level 2.7 H Creatine Kinase 5919 H Creatine Kinase 1.7 Index Creatinine 98.20 H Kinase MB (Mass) Troponin I 2.650 *H Blood Gas Blood arterial Specimen Source Arterial Blood 10/05/2018 11:51:3 Date Drawn 2 PM Arterial Blood 7.457 H pH (Temp corrected) Arterial Blood 28.5 L pCO2 (Temp correct) Arterial Blood 105.0 H pO2 (Temp corrected) Arterial Blood 19.8 L HCO3 Arterial Blood -2.6 Base Excess Arterial Blood 98.1 H Oxygen Saturatio n Willie Test ACCEPTAB Arterial Blood Left Radial Gas Puncture Site Arterial 0.3 Blood Carboxyhem oglobin Arterial Blood 0.5 Methemoglobin Blood Gas A-a O2 148.3 H Differential Oxyhemoglobin 97.3 Percent Blood Gas 36.2 Temperature Blood Gas 28.0 Respiration Rate Blood Gas Actual 28 Respiration Rate Blood Gas VENT - AC Modality FiO2 40.0 Blood Gas Tidal 500.0 Volume Blood Gas Low 5.0 PEEP Setting Blood Gas D JUAN CARLOS [facility] Notified Whom Blood Gas 10/06/2018 12:01:0 Notified Time 3 AM Test 10/06/18 01:55 10/06/18 04:14 10/06/18 04:40 10/06/18 05:51 Bedside Glucose 139 106 111 White Blood 15.9 H Count Red Blood Count 6.35 H Hemoglobin 17.6 Hematocrit 51.5 Mean Corpuscular 81.1 L Volume Mean Corpuscular 27.7 L Hemoglobin Mean Corpuscular 34.2 Hemoglobin Diana nt Red Cell 13.2 Distribution Width Platelet Count 222 Mean Platelet 9.6 Volume Immature 0.300 Granulocytes % Neutrophils % 84.5 H Segmented 60 Neutrophils % (Manual) Band Neutrophils 26 H % (Manual) Lymphocytes % 11.1 L Lymphocytes % 7 L (Manual) Monocytes % 3.5 Monocytes % 4 (Manual) Eosinophils % 0.3 Eosinophils % 1 (Manual) Basophils % 0.3 Basophils % 1 (Manual) Plasma Cells % 1 (manual) Nucleated Red 1 H Blood Cells % Immature 0.050 H Granulocytes # Neutrophils # 13.5 H Neutrophils # 10.2 H (Manual) Band Neutrophils 4.1 H # Lymphocytes 1.1 (Manual) Lymphocytes # 1.8 Monocytes # 0.6 Monocytes # 0.6 (Manual) Eosinophils # 0.1 Basophils # 0.1 Basophils # 0.1 H (Manual) Plasma Cells # 0.1 H (manual) Nucleated Red 0.0 Blood Cells # Platelet NORMAL Estimate Giant Platelets 1 H Polychromasia 1+ Hypochromasia 1+ Poikilocytosis 1+ Anisocytosis 1+ Microcytosis 1+ Prothrombin Time 16.5 H Prothrombin Time 1.3 Ratio INR 1.32 International Normalized Ratio Activated 33.9 Partial Thrombop last Time Fibrinogen 312.0 # Sodium Level 148 H Potassium Level 3.1 L Chloride Level 115 H Carbon Dioxide 24 Level Anion Gap 9 Blood Urea 30 H Nitrogen Creatinine 2.55 H Est Glomerular 29 L Filtrat Rate mL/min Glucose Level 117 Lactic Acid 3.2 *H Level Calcium Level 8.9 Phosphorus Level 1.2 L Magnesium Level 2.8 H Troponin I 1.840 *H Amylase Level 1641 #H Lipase 286 Test 10/06/18 06:00 10/06/18 08:11 10/06/18 09:59 Blood Gas Blood arterial Specimen Source Arterial Blood 10/06/2018 5:48:24 Date Drawn AM Arterial Blood 7.553 *H pH (Temp corrected) Arterial Blood 24.8 L pCO2 (Temp correct) Arterial Blood 109.5 H pO2 (Temp corrected) Arterial Blood 21.5 L HCO3 Arterial Blood 1.0 Base Excess Arterial Blood 98.5 H Oxygen Saturatio n Willie Test ACCEPTAB Arterial Blood Left Radial Gas Puncture Site Arterial 0.3 Blood Carboxyhem oglobin Arterial Blood 0.6 Methemoglobin Blood Gas A-a O2 148.3 H Differential Oxyhemoglobin 97.6 Percent Blood Gas 36.0 Temperature Blood Gas 28.0 Respiration Rate Blood Gas Actual 28 Respiration Rate Blood Gas VENT - AC Modality FiO2 40.0 Blood Gas Tidal 550.0 Volume Blood Gas Low 5.0 PEEP Setting Blood Gas Arthur BULLOCK RN Critical Value Read Back Blood Gas Arthur RANGEL RCP Notified Whom Blood Gas 10/06/2018 5:54:00 Notified Time AM Bedside Glucose 110 120 Home Meds Reported Medications Acetaminophen with Codeine (Acetaminophen-Cod #3 Tablet) 1 Each Tablet, 1 TAB PO BID PRN for PAIN, #7 TAB 10/05/18 Alprazolam* (Xanax*) 2 Mg Tablet, 2 MG PO BID PRN for ANXIETY, TAB 10/05/18 Albuterol Sulfate* (Ventolin HFA*) 18 Gm Hfa.aer.ad, 2 PUFF INHALATION Q4H, #1 INHALER 10/05/18 Medications Current Medications Albuterol (Ventolin Hfa) 4 puff Q2H RESP THERAPY PRN INH SHORTNESS OF BREATH; Start 10/05/18 at 07:00 Ipratropium [place] (Atrovent Hfa) 4 puff Q2H RESP THERAPY PRN INH SHORTNESS OF BREATH; Start 10/05/18 at 07:00 Acetaminophen (Tylenol Liquid) 650 mg Q6H PRN PO PAIN LEVEL 1-3 OR FEVER; Start 10/05/18 at 07:00 Pantoprazole (Protonix Iv) 40 mg DAILY@06 IV Last administered on 10/06/18at 05:46; Admin Dose 40 MG; Start 10/05/18 at 08:00 Diagnostic Test (Pha) (Accu-Chek) 1 ea Q1H XX Last administered on 10/06/18at 06:10; Admin Dose 1 EA; Start 10/05/18 at 10:00 Insulin Human Regular 100 unit/ Sodium Chloride 100 ml @ 0 mls/hr PER PROTOCOL IV Last administered on 10/05/18at 12:14; Admin Dose 1 MLS/HR; Start 10/05/18 at 10:00 Miscellaneous Information (* Miscellaneous Pharmacy Order) Treatment of Hypoglycemia: 1.BG 51... Per protocol XX ; Start 10/05/18 at 10:00 Dextrose (D50w Syringe) 25 ml Q15M PRN IV .DECREASED GLUCOSE; Start 10/05/18 at 10:00 Dextrose (D50w Syringe) 50 ml Q15M PRN IV .DECREASED GLUCOSE; Start 10/05/18 at 10:00 Dopamine HCl/ Dextrose 250 ml @ 5.966 mls/ hr TITRATE IV Last administered on 10/06/18at 08:21; Admin Dose 29.795 MLS/HR; Start 10/05/18 at 13:00 Eye Lubricant (Akwa Oint) 1 applic Q6H BOTH EYES Last administered on 10/06/18 08:49; Admin Dose 1 APPLIC; Start 10/05/18 at 15:00 Eye Lubricant (Artificial Tears Oph) 2 drop Q6H BOTH EYES Last administered on 10/06/18 08:48; Admin Dose 2 DROP; Start 10/05/18 at 15:00 Magnesium Sulfate 50 ml @ 25 mls/hr PRN PRN IVPB PER TTM PROTOCOL Last administered on 10/05/18 19:59; Admin Dose 25 MLS/HR; Start 10/05/18 at 14:00 Potassium Chloride 50 ml @ 25 mls/hr PRN PRN IVPB PER TTM PROTOCOL; Start 10/05/18 at 14:00 Piperacillin Sod/ Tazobactam Sod 100 ml @ 200 mls/hr Q6 IVPB Last administered on 10/06/18 05:47; Admin Dose 200 MLS/HR; Start 10/05/18 at 14:00 Midazolam HCl 50 ml @ 1 mls/hr TITRATE IV Last administered on 10/05/18 17:23; Admin Dose 1 MLS/HR; Start 10/05/18 at 16:00 Norepinephrine 32 mg/Dextrose 250 ml @ 0.47 mls/hr TITRATE IV Last administered on 10/05/18 18:12; Admin Dose 0.47 MLS/HR; Start 10/05/18 at 18:30 Potassium Chloride/Dextrose/ Sod Cl 1,000 ml @ 100 mls/hr Q10H IV Last administered on 10/06/18 08:24; Admin Dose 100 MLS/HR; Start 10/06/18 at 08:30 Potassium Phosphate 30 mm/ Sodium Chloride 260 ml @ 65 mls/hr ONCE IVPB ; Start 10/06/18 at 10:30; Stop 10/06/18 at 16:00 Assessment/Plan Assessment/Plan (Daily) IMP: 1. s/p Cardiopulmonary Arrest 2. Anoxic Brain Injury--examination concerning for brain 3. s/p Polypharmacy OD 4. Shock 5. DARLING 6. Demand ischemia 7. Rhabdomyolysis RECS: 1. Based on hemodynamic instability may not tolerated apnea testing. 2. Neuro to confirm examination which is consistent with brain upon completion of EEG 3. Obtain EEG 4. Vent support 5. For now, continue pressors 6 Palliative Care to see patient 40 min cc time CHER MERRITT MD October 07, 2018 09:16
[2018-10-07] MEDS: VASOPRESSIN 60 UNIT in DEXTROSE 5% 57 ML IV SCH ×2 (10:30→22:30)
--- NOTE | 2018-10-07 12:36 | CONS ---
Assessment/Plan Assessment/Plan Hospital Course (Demo Recall) IMPRESSION: 1. Non-ST elevation myocardial infarction in the setting of cardiopulmonary arrest likely type 2 demand infarct as a result of cardiopulmonary arrest- Troponins downtrending. EF actually normal by echo this admit 2. Status post cardiopulmonary arrest, likely primary pulmonary event. 3. Congestive heart failure- BY echo diastolic acute on chronic but likely had systolic function during time of prolonged arrest 4. Respiratory failure, status post intubation. 5. Encephalopathy. 6. Cerebral edema. 7. Renal failure. 8. Shock liver. 9. Coagulopathy. 10. Leukocytosis. 11.Hypotension-off pressors 12.Hypothermia-s/p rewarming Recc: -ICU -continue abx's and f/u cx data -overall poor prognosis -follow volume status Consultation Date/Type/Reason Admit Date/Time October 05, 2018 at 06:45 Initial Consult Date 10/05/18 Type of Consult Cardiology Reason for Consultation cardiac arrest Requesting Provider: SIGIFREDO TOLEDO MD Date/Time of Note DATE: 10/07/18 TIME: 12:34 Exam/Review of Systems Vital Signs Vitals Vital Signs Date Temp Pulse Resp B/P (MAP) Pulse Ox O2 O2 Flow FiO2 Time Delivery Rate 10/07/18 93 18 99 55 11:00 10/07/18 90/65 (73) Mechanical 10:30 Ventilator 10/07/18 98.4 08:00 Intake and Output 10/06/18 10/06/18 10/07/18 1414:59 22:59 06:59 IntakeIntake Total 1119.510 ml 1618.642 ml 1970.14 ml OutputOutput Total 780 ml 2630 ml 975 ml BalanceBalance 339.510 ml -1011.358 ml 995.14 ml Exam Exam Review of Systems: CONSTITUTIONAL: No fevers, chills. PULMONARY: No sob CARDIOVASCULAR: No chest pain/palpitations GASTROINTESTINAL: No nausea/vomiting. GENITOURINARY: No hematuria/dysuria. MUSCULOSKELETAL: No myagias/arthalgias. PSYCHIATRIC: The patient denies depression. NEUROLOGIC: encepahalopthic Constitutional: other (encephalopathic) Psych: no complaints Head: normocephalic ENMT: mucosa pink and moist Neck: supple, jvd (9 cm water) Respiratory: diminished breath sounds (at bases/B) Cardiovascular: regular rate and rhythm Gastrointestinal: soft, non-tender Musculoskeletal: muscle tone (normal) Extremities: pitting pedal edema (trace/B) Neurological: unresponsive Labs Result Diagram: 10/07/18 0531 10/07/18 0531 Results 24hrs Laboratory Tests Test 10/06/18 14:11 10/06/18 16:09 10/06/18 18:14 10/06/18 20:08 Bedside Glucose 123 126 101 127 Test 10/06/18 22:11 10/06/18 23:48 10/07/18 02:00 10/07/18 04:01 Bedside Glucose 109 137 131 117 Test 10/07/18 05:00 10/07/18 05:31 10/07/18 06:08 10/07/18 08:29 Urine Osmolality 154 L White Blood Count 17.8 H Red Blood Count 5.47 Hemoglobin 15.0 Hematocrit 46.5 Mean Corpuscular Volume 85.0 Mean Corpuscular 27.4 L Hemoglobin Mean Corpuscular 32.3 Hemoglobin Concent Red Cell Distribution 14.2 Width Platelet Count 143 # Mean Platelet Volume 9.8 Immature Granulocytes % 0.800 H Neutrophils % Segmented Neutrophils 48 % (Manual) Band Neutrophils % 37 H (Manual) Lymphocytes % Lymphocytes % (Manual) 5 L Monocytes % Monocytes % (Manual) 4 Eosinophils % Eosinophils % (Manual) 3 Basophils % Metamyelocytes % 2 H (manual) Myelocytes % (Manual) 2 H Nucleated Red Blood 0.2 H Cells % Immature Granulocytes # 0.140 H Neutrophils # Neutrophils # (Manual) 9.7 H Band Neutrophils # 6.5 H Lymphocytes (Manual) 0.8 Lymphocytes # Monocytes # Monocytes # (Manual) 0.7 Eosinophils # Basophils # Metamyelocytes # 0.3 H Myelocytes # 0.3 H Nucleated Red Blood Cells # Platelet Estimate NORMAL Giant Platelets 1 H Poikilocytosis 2+ Anisocytosis 1+ Sodium Level 151 H Potassium Level 3.5 Chloride Level 122 H Carbon Dioxide Level 23 Anion Gap 6 # Blood Urea Nitrogen 29 H Creatinine 3.23 #H Est Glomerular Filtrat 22 L Rate mL/min Glucose Level 129 Calcium Level 7.3 L Phosphorus Level 3.9 Magnesium Level 2.1 Bedside Glucose 121 144 Test 10/07/18 10:19 Bedside Glucose 121 Medications Medications Current Medications Albuterol (Ventolin Hfa) 4 puff Q2H RESP THERAPY PRN INH SHORTNESS OF BREATH; Start 10/05/18 at 07:00 Ipratropium [place] (Atrovent Hfa) 4 puff Q2H RESP THERAPY PRN INH SHORTNESS OF BREATH; Start 10/05/18 at 07:00 Acetaminophen (Tylenol Liquid) 650 mg Q6H PRN PO PAIN LEVEL 1-3 OR FEVER; Start 10/05/18 at 07:00 Pantoprazole (Protonix Iv) 40 mg DAILY@06 IV Last administered on 10/07/18 06:08; Admin Dose 40 MG; Start 10/05/18 at 08:00 Diagnostic Test (Pha) (Accu-Chek) 1 ea Q1H XX Last administered on 10/07/18 06:08; Admin Dose 1 EA; Start 10/05/18 at 10:00 Insulin Human Regular 100 unit/ Sodium Chloride 100 ml @ 0 mls/hr PER PROTOCOL IV Last administered on 10/05/18 12:14; Admin Dose 1 MLS/HR; Start 10/05/18 at 10:00 Miscellaneous Information (* Miscellaneous Pharmacy Order) Treatment of Hypoglycemia: 1.BG 51... Per protocol XX ; Start 10/05/18 at 10:00 Dextrose (D50w Syringe) 25 ml Q15M PRN IV .DECREASED GLUCOSE; Start 10/05/18 at 10:00 Dextrose (D50w Syringe) 50 ml Q15M PRN IV .DECREASED GLUCOSE; Start 10/05/18 at 10:00 Dopamine HCl/ Dextrose 250 ml @ 5.966 mls/ hr TITRATE IV Last administered on 10/06/18 23:09; Admin Dose 11.933 MLS/HR; Start 10/05/18 at 13:00 Eye Lubricant (Akwa Oint) 1 applic Q6H BOTH EYES Last administered on 10/07/18 08:31; Admin Dose 1 APPLIC; Start 10/05/18 at 15:00 Eye Lubricant (Artificial Tears Oph) 2 drop Q6H BOTH EYES Last administered on 10/07/18 08:30; Admin Dose 2 DROP; Start 10/05/18 at 15:00 Magnesium Sulfate 50 ml @ 25 mls/hr PRN PRN IVPB PER TTM PROTOCOL Last administered on 10/05/18 19:59; Admin Dose 25 MLS/HR; Start 10/05/18 at 14:00 Piperacillin Sod/ Tazobactam Sod 100 ml @ 200 mls/hr Q6 IVPB Last administered on 10/07/18 11:57; Admin Dose 200 MLS/HR; Start 10/05/18 at 14:00 Midazolam HCl 50 ml @ 1 mls/hr TITRATE IV Last administered on 10/05/18at 17:23; Admin Dose 1 MLS/HR; Start 10/05/18 at 16:00 Norepinephrine 32 mg/Dextrose 250 ml @ 0.47 mls/hr TITRATE IV Last administered on 10/07/18 04:28; Admin Dose 2.81 MLS/HR; Start 10/05/18 at 18:30 Potassium Chloride/Dextrose/ Sod Cl 1,000 ml @ 150 mls/hr Q6H40M IV Last administered on 10/07/18at 10:41; Admin Dose 150 MLS/HR; Start 10/06/18 at 08:30 Phenylephrine HCl 80 mg/Dextrose 250 ml @ 18.75 mls/ hr TITRATE IV Last administered on 10/07/18 08:20; Admin Dose 48.75 MLS/HR; Start 10/06/18 at 21:30 Vasopressin 60 unit/Dextrose 60 ml @ 1.2 mls/hr Q12H IV Last administered on 10/06/18at 23:19; Admin Dose 1.2 MLS/HR; Start 10/06/18 at 22:30 SIGIFREDO HERMOSILLO October 07, 2018 12:36
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
[2018-10-07] MEDS: PIPER-TAZO 2.25 GM/NS 50 ML IVPB SCH ×2 (17:43→23:51)
[2018-10-08] VITALS (101 sets, daily range): BP systolic 60–174; BP diastolic 39–118; PULSE 81–98; RESP 13–31
[2018-10-08] MEDS: D5W-0.45 NACL + KCL 10 MEQ 1,000 ML IV SCH ×3 (00:28→19:29)
[2018-10-08] MEDS: ACCU-CHEK XX SCH ×23 (00:32→22:54)
[2018-10-08] MEDS: ARTIFICIAL TEARS 15 ML OPH BOTH EYES SCH ×4 (03:10→20:37)
[2018-10-08] MEDS: OCULAR LUBRICANT 3.5 GM OPH OINT BOTH EYES SCH ×4 (03:10→20:37)
[2018-10-08] MEDS: PHENYLephrine 80 MG in DEXTROSE 5% 242 ML IV SCH ×3 (04:28→19:38)
[2018-10-08] MEDS: PANTOPRAZOLE 40 MG INJ IV SCH (05:42)
[2018-10-08] MEDS: PIPER-TAZO 2.25 GM/NS 50 ML IVPB SCH ×3 (05:42→20:36)
--- NOTE | 2018-10-08 06:30 | EEG ---
EEG NOTE Report Details DATE OF TEST: 10/07/18 HISTORY: The patient is a 37-year-old M who presents in coma s/p cardiac arrest. This EEG is requested to confirm electrocerebral inactivity. SEDATION: None. CONDITIONS OF RECORDING: This EEG was recorded digitally on the [email or web address] machine, using the International 10-20 System of electrodes plus anterior temporals and [place]. STATES SAMPLED: Comatose. FINDINGS: There is electrocerebral inactivity throughout. IMPRESSION: Abnormal electroencephalogram due to: electrocerebral inactivity. COMMENT: Consistent with the clinical diagnosis of brain . KENYN DIETRICH October 08, 2018 06:30
--- NOTE | 2018-10-08 07:37 | CONS ---
Assessment/Plan Assessment/Plan Assessment/Plan (Daily) Cardiac arrest down for approximately 20 to 30 minutes Anoxic encephalopathy Long bout of cardiopulmonary resuscitation Hypoxic respiratory failure intubated Opioids and benzodiazepines in tox screen Family members request a conference today, patient remains encephalopathic intubated on 1 pressor. Prognosis extremely poor Apnea test today Consultation Date/Type/Reason Admit Date/Time October 05, 2018 at 06:45 Initial Consult Date 10/05/18 Requesting Provider: SIGIFREDO TOLEDO MD Date/Time of Note DATE: 10/08/18 TIME: 07:34 Exam/Review of Systems Exam Vitals Vital Signs Date Temp Pulse Resp B/P (MAP) Pulse Ox O2 O2 Flow FiO2 Time Delivery Rate 10/08/18 85 18 93/61 (72) 98 Mechanical 06:00 Ventilator 10/08/18 30 05:01 10/08/18 98.4 04:00 Intake and Output 10/07/18 10/07/18 10/08/18 1515:00 23:00 07:00 IntakeIntake Total 1691.71 ml 1566.19 ml 1273.0 ml OutputOutput Total 1155 ml 1175 ml 1550 ml BalanceBalance 536.71 ml 391.19 ml -277.0 ml Constitutional: other (Unresponsive) Head: normocephalic, atraumatic Neck: supple, non-tender Respiratory: clear to auscultation, normal air movement; No congested cough, No crackles/rales, No diminished breath sounds, No intercostal retraction, No labored breathing, No respirations, No tactile fremitus, No wheezing, No other Cardiovascular: regular rate and rhythm, nl pulses; No bruits, No diastolic murmur, No edema, No gallop, No irregular rhythm, No jugular venous distention (JVD), No murmurs/extra sounds, No rub, No systolic murmur, No S3, No S4, No other Neurological: other (Unresponsive to any verbal or tactile stimulation, cannot participate in neurological examination, no gag reflex, no oculocephalics not overbreathing ventilator) Results Result Diagram: 10/08/18 0436 10/08/18 0436 Results 24hrs Laboratory Tests Test 10/07/18 08:29 10/07/18 10:19 10/07/18 12:35 10/07/18 14:53 Bedside Glucose 144 121 122 159 Test 10/07/18 16:11 10/07/18 17:41 10/07/18 20:06 10/07/18 21:59 Bedside Glucose 140 137 119 130 Test 10/07/18 23:54 10/08/18 01:59 10/08/18 04:09 10/08/18 04:20 Bedside Glucose 109 115 102 Lactic Acid Level 1.7 Test 10/08/18 04:36 10/08/18 05:51 White Blood Count 15.7 H Red Blood Count 4.87 Hemoglobin 13.5 L Hematocrit 41.9 L Mean Corpuscular Volume 86.0 Mean Corpuscular 27.7 L Hemoglobin Mean Corpuscular 32.2 Hemoglobin Concent Red Cell Distribution 14.6 H Width Platelet Count 111 #L Mean Platelet Volume 10.8 H Immature Granulocytes % 0.600 H Neutrophils % Lymphocytes % Monocytes % Eosinophils % Basophils % Nucleated Red Blood 0.0 Cells % Immature Granulocytes # 0.090 H Neutrophils # Lymphocytes # Monocytes # Eosinophils # Basophils # Nucleated Red Blood Cells # Sodium Level 151 H Potassium Level 3.5 Chloride Level 124 H Carbon Dioxide Level 22 Anion Gap 5 Blood Urea Nitrogen 19 # Creatinine 3.17 H Est Glomerular Filtrat 22 L Rate mL/min Glucose Level 108 Calcium Level 7.5 L Phosphorus Level 3.6 Magnesium Level 1.9 Bedside Glucose 104 Medications Medication Current Medications Albuterol (Ventolin Hfa) 4 puff Q2H RESP THERAPY PRN INH SHORTNESS OF BREATH; Start 10/05/18 at 07:00 Ipratropium [place] (Atrovent Hfa) 4 puff Q2H RESP THERAPY PRN INH SHORTNESS OF BREATH; Start 10/05/18 at 07:00 Acetaminophen (Tylenol Liquid) 650 mg Q6H PRN PO PAIN LEVEL 1-3 OR FEVER; Start 10/05/18 at 07:00 Pantoprazole (Protonix Iv) 40 mg DAILY@06 IV Last administered on 10/08/18at 05:42; Admin Dose 40 MG; Start 10/05/18 at 08:00 Diagnostic Test (Pha) (Accu-Chek) 1 ea Q1H XX Last administered on 10/08/18at 05:52; Admin Dose 1 EA; Start 10/05/18 at 10:00 Insulin Human Regular 100 unit/ Sodium Chloride 100 ml @ 0 mls/hr PER PROTOCOL IV Last administered on 10/05/18 12:14; Admin Dose 1 MLS/HR; Start 10/05/18 at 10:00 Miscellaneous Information (* Miscellaneous Pharmacy Order) Treatment of Hypoglycemia: 1.BG 51... Per protocol XX ; Start 10/05/18 at 10:00 Dextrose (D50w Syringe) 25 ml Q15M PRN IV .DECREASED GLUCOSE; Start 10/05/18 at 10:00 Dextrose (D50w Syringe) 50 ml Q15M PRN IV .DECREASED GLUCOSE; Start 10/05/18 at 10:00 Dopamine HCl/ Dextrose 250 ml @ 5.966 mls/ hr TITRATE IV Last administered on 10/06/18 23:09; Admin Dose 11.933 MLS/HR; Start 10/05/18 at 13:00 Eye Lubricant (Akwa Oint) 1 applic Q6H BOTH EYES Last administered on 10/08/18 03:10; Admin Dose 1 APPLIC; Start 10/05/18 at 15:00 Eye Lubricant (Artificial Tears Oph) 2 drop Q6H BOTH EYES Last administered on 10/08/18 03:10; Admin Dose 2 DROP; Start 10/05/18 at 15:00 Magnesium Sulfate 50 ml @ 25 mls/hr PRN PRN IVPB PER TTM PROTOCOL Last administered on 10/05/18 19:59; Admin Dose 25 MLS/HR; Start 10/05/18 at 14:00 Midazolam HCl 50 ml @ 1 mls/hr TITRATE IV Last administered on 10/05/18 17:23; Admin Dose 1 MLS/HR; Start 10/05/18 at 16:00 Norepinephrine 32 mg/Dextrose 250 ml @ 0.47 mls/hr TITRATE IV Last administered on 10/07/18 04:28; Admin Dose 2.81 MLS/HR; Start 10/05/18 at 18:30 Potassium Chloride/Dextrose/ Sod Cl 1,000 ml @ 150 mls/hr Q6H40M IV Last administered on 10/08/18 06:41; Admin Dose 150 MLS/HR; Start 10/06/18 at 08:30 Phenylephrine HCl 80 mg/Dextrose 250 ml @ 18.75 mls/ hr TITRATE IV Last administered on 10/08/18 04:28; Admin Dose 37.5 MLS/HR; Start 10/06/18 at 21:30 Vasopressin 60 unit/Dextrose 60 ml @ 1.2 mls/hr Q12H IV Last administered on 10/06/18at 23:19; Admin Dose 1.2 MLS/HR; Start 10/06/18 at 22:30 Piperacillin Sod/ Tazobactam Sod 50 ml @ 100 mls/hr Q6 IVPB Last administered on 10/08/18at 05:42; Admin Dose 100 MLS/HR; Start 10/07/18 at 18:00 SAIMA WILDER October 08, 2018 07:37
--- NOTE | 2018-10-08 08:44 | PN ---
DATE: 10/08/2018 SUBJECTIVE: The patient is critically ill, on full ventilatory support and on pressor support. The patient's urinary output has been greater than 200 mL per hour. No other acute events noted. The william cramer has minimal to no neurological response. OBJECTIVE: VITAL SIGNS: Blood pressure 93/61, respirations 18, pulse 85, temperature 98.6. HEENT: Head is normocephalic. NECK: Supple. HEART: Regular rate. LUNGS: Show diminished breath sounds at the base. ABDOMEN: Nontender to palpation without rebound or guarding. EXTREMITIES: Negative for clubbing, cyanosis. Positive edema. DERMATOLOGIC: No rashes. MUSCULOSKELETAL: No joint effusion. NEUROLOGIC: No change in exam. MEDICATIONS: Reviewed. LABORATORY DATA: Reviewed. The patient has sodium of 159, BUN 19, creatinine 3.17. Urine osmolarit y 154. Urine sodium 113. The patient's CBC was reviewed. IMAGING STUDIES: Reviewed. MICROBIOLOGY: Cultures were reviewed. ASSESSMENT AND PLAN: 1. Nonoliguric acute kidney injury with unknown baseline creatinine. Etiology of acute kidney injur y is secondary to acute tubular necrosis due to shock, ischemic hyperperfusion. The patient is curre ntly in injury phase of acute tubular necrosis. Creatinine, however, in the last 24 hours, appears t o have stabilized. At this point, we will continue current treatment plan, supportive care, renally dose all medicines, continue pressor support, maintain MAP of 65. Continue antibiotic therapy. No n eed for renal replacement therapy at this time. 2. Hypernatremia. Etiology is concerning for diabetes insipidus possible central due to anoxic brai n injury. The patient's urine osmolarity is inappropriately low given the patient's level of dehydra tion. A possibility of a nephrogenic diabetes insipidus due to acute kidney injury is also a conside ration. Plan at this point is to give the patient a trial of desmopressin. We will monitor serum so dium levels closely. We will continue the patient on hypertonic fluid. 3. Ventilator-dependent respiratory failure. Vent settings and ABG was reviewed. Continue to monit or. Follow up with pulmonary. 4. Mineral bone disorder, monitor calcium and phosphorus levels. 5. Lactic acidosis secondary to shock. Continue to monitor. 6. Shock, presumed etiology may be multifactorial, septic and neurogenic. The patient is on pressor support, continue. Continue IV fluids, continue antibiotic therapy, and monitor closely. 7. Cardiac arrest. Etiology is unclear. The patient is status post return of spontaneous circulati on, status post hypothermic protocol. Continue to monitor. 8. Anoxic injury. The patient's CT scan of brain was reviewed. The patient's pupils are fixed and dilated. Continue to monitor. Followup with neurology. 9. Questionable drug overdose. Continue to monitor. Please note I spent over 30 minutes of critical care time with this patient. Dictated By: INDIRA GEORGE DO NR/NTS Conf#: [id number] DID#: [id number] CC: SIGIFERDO HERMOSILLO MD; SIGIFREDO TOLEDO MD; PUNEET BOATENG MD;*End*
[2018-10-08] MEDS: DESMOPRESSIN 4 MCG INJ IV SCH ×2 (09:00→20:36)
--- NOTE | 2018-10-08 09:27 | RADRPT ---
Vent Rate: 91 bpm RR Interval: 0 msec [place] Interval: 134 msec QRS Duration: 82 msec QT Interval: 362 msec QTC Interval: 445 msec P-R-T [place]: -8 - 35 - 41 degrees Normal sinus rhythm Normal ECG Electronically Signed By: Frantz Neal
--- NOTE | 2018-10-08 09:32 | RADRPT ---
Vent Rate: 102 bpm RR Interval: 0 msec [place] Interval: 132 msec QRS Duration: 86 msec QT Interval: 394 msec QTC Interval: 513 msec P-R-T [place]: 59 - 71 - 63 degrees Sinus tachycardia Nonspecific ST abnormality Abnormal ECG Electronically Signed By: Frantz Neal
--- NOTE | 2018-10-08 09:32 | RADRPT ---
Vent Rate: 101 bpm RR Interval: 0 msec [place] Interval: 134 msec QRS Duration: 88 msec QT Interval: 404 msec QTC Interval: 523 msec P-R-T [place]: 59 - 70 - 63 degrees Sinus tachycardia Nonspecific ST abnormality Abnormal ECG Electronically Signed By: Frantz Neal
--- NOTE | 2018-10-08 09:45 | CONS ---
Consult Date/Type/Reason Admit Date/Time October 05, 2018 at 06:45 Initial Consult Date 10/05/18 Type of Consult Pulmonary Requesting Provider: SIGIFREDO TOLEDO MD Date/Time of Note DATE: 10/08/18 TIME: 09:43 Subjective Remains unresponsive and on mechanical ventilation. Vegetative state versus brain . Objective Vital Signs Date Temp Pulse Resp B/P (MAP) Pulse Ox O2 O2 Flow FiO2 Time Delivery Rate 10/08/18 83 18 97 30 09:23 10/08/18 93/61 (72) Mechanical 06:00 Ventilator 10/08/18 98.4 04:00 Intake and Output 10/07/18 10/07/18 10/08/18 1515:00 23:00 07:00 IntakeIntake Total 1691.71 ml 1566.19 ml 1273.0 ml OutputOutput Total 1155 ml 1175 ml 1550 ml BalanceBalance 536.71 ml 391.19 ml -277.0 ml Exam GENERAL: Well-nourished well-developed gentleman on mechanical ventilation. VITAL SIGNS: per chart NECK: Supple. No JVD or lymphadenopathy. CARDIAC EXAM: S1, S2. No added sounds or murmurs. CHEST: clear bilaterally, No added sounds, rales or wheezes ABDOMEN: Soft, nontender. No guarding or rebound. EXTREMITIES: No cyanosis, clubbing or edema. NEUROLOGIC: Unresponsive on mechanical ventilation pupils fixed no gag reflex. Vent Setting Ventilator Support Mode: AC Fraction of Inspired Oxygen pe: 30 Positive End Expiratory Pressu: 5.0 Results/Medications Result Diagram: 10/08/18 0436 10/08/18 0436 Results 24 hrs Laboratory Tests Test 10/07/18 10:19 10/07/18 12:35 10/07/18 14:53 10/07/18 16:11 Bedside Glucose 121 122 159 140 Test 10/07/18 17:41 10/07/18 20:06 10/07/18 21:59 10/07/18 23:54 Bedside Glucose 137 119 130 109 Test 10/08/18 01:59 10/08/18 04:09 10/08/18 04:20 10/08/18 04:36 Bedside Glucose 115 102 Lactic Acid Level 1.7 White Blood Count 15.7 H Red Blood Count 4.87 Hemoglobin 13.5 L Hematocrit 41.9 L Mean Corpuscular Volume 86.0 Mean Corpuscular 27.7 L Hemoglobin Mean Corpuscular 32.2 Hemoglobin Concent Red Cell Distribution 14.6 H Width Platelet Count 111 #L Mean Platelet Volume 10.8 H Immature Granulocytes % 0.600 H Neutrophils % Lymphocytes % Monocytes % Eosinophils % Basophils % Nucleated Red Blood 0.0 Cells % Immature Granulocytes # 0.090 H Neutrophils # Lymphocytes # Monocytes # Eosinophils # Basophils # Nucleated Red Blood Cells # Sodium Level 151 H Potassium Level 3.5 Chloride Level 124 H Carbon Dioxide Level 22 Anion Gap 5 Blood Urea Nitrogen 19 # Creatinine 3.17 H Est Glomerular Filtrat 22 L Rate mL/min Glucose Level 108 Calcium Level 7.5 L Phosphorus Level 3.6 Magnesium Level 1.9 Test 10/08/18 05:51 10/08/18 09:18 Bedside Glucose 104 105 Medications Current Medications Albuterol (Ventolin Hfa) 4 puff Q2H RESP THERAPY PRN INH SHORTNESS OF BREATH; Start 10/05/18 at 07:00 Ipratropium [place] (Atrovent Hfa) 4 puff Q2H RESP THERAPY PRN INH SHORTNESS OF BREATH; Start 10/05/18 at 07:00 Acetaminophen (Tylenol Liquid) 650 mg Q6H PRN PO PAIN LEVEL 1-3 OR FEVER; Start 10/05/18 at 07:00 Pantoprazole (Protonix Iv) 40 mg DAILY@06 IV Last administered on 10/08/18at 05:42; Admin Dose 40 MG; Start 10/05/18 at 08:00 Diagnostic Test (Pha) (Accu-Chek) 1 ea Q1H XX Last administered on 10/08/18at 08:00; Admin Dose 1 EA; Start 10/05/18 at 10:00 Insulin Human Regular 100 unit/ Sodium Chloride 100 ml @ 0 mls/hr PER PROTOCOL IV Last administered on 10/05/18at 12:14; Admin Dose 1 MLS/HR; Start 10/05/18 at 10:00 Miscellaneous Information (* Miscellaneous Pharmacy Order) Treatment of Hypoglycemia: 1.BG 51... Per protocol XX ; Start 10/05/18 at 10:00 Dextrose (D50w Syringe) 25 ml Q15M PRN IV .DECREASED GLUCOSE; Start 10/05/18 at 10:00 Dextrose (D50w Syringe) 50 ml Q15M PRN IV .DECREASED GLUCOSE; Start 10/05/18 at 10:00 Dopamine HCl/ Dextrose 250 ml @ 5.966 mls/ hr TITRATE IV Last administered on 10/06/18 23:09; Admin Dose 11.933 MLS/HR; Start 10/05/18 at 13:00 Eye Lubricant (Akwa Oint) 1 applic Q6H BOTH EYES Last administered on 10/08/18 09:20; Admin Dose 1 APPLIC; Start 10/05/18 at 15:00 Eye Lubricant (Artificial Tears Oph) 2 drop Q6H BOTH EYES Last administered on 10/08/18 09:20; Admin Dose 2 DROP; Start 10/05/18 at 15:00 Magnesium Sulfate 50 ml @ 25 mls/hr PRN PRN IVPB PER TTM PROTOCOL Last administered on 10/05/18 19:59; Admin Dose 25 MLS/HR; Start 10/05/18 at 14:00 Midazolam HCl 50 ml @ 1 mls/hr TITRATE IV Last administered on 10/05/18 17:23; Admin Dose 1 MLS/HR; Start 10/05/18 at 16:00 Norepinephrine 32 mg/Dextrose 250 ml @ 0.47 mls/hr TITRATE IV Last administered on 10/07/18 04:28; Admin Dose 2.81 MLS/HR; Start 10/05/18 at 18:30 Potassium Chloride/Dextrose/ Sod Cl 1,000 ml @ 150 mls/hr Q6H40M IV Last administered on 10/08/18 06:41; Admin Dose 150 MLS/HR; Start 10/06/18 at 08:30; Stop 10/08/18 at 17:50 Phenylephrine HCl 80 mg/Dextrose 250 ml @ 18.75 mls/ hr TITRATE IV Last administered on 10/08/18 04:28; Admin Dose 37.5 MLS/HR; Start 10/06/18 at 21:30 Vasopressin 60 unit/Dextrose 60 ml @ 1.2 mls/hr Q12H IV Last administered on 10/06/18 23:19; Admin Dose 1.2 MLS/HR; Start 10/06/18 at 22:30 Piperacillin Sod/ Tazobactam Sod 50 ml @ 100 mls/hr Q6 IVPB Last administered on 5/6/19at 05:42; Admin Dose 100 MLS/HR; Start 10/07/18 at 18:00 Potassium Chloride/Dextrose/ Sod Cl 1,000 ml @ 150 mls/hr Q6H40M IV ; Start at 17:51 Desmopressin Acetate (Ddavp) 2 mcg BID IV ; Start 10/08/18 at 09:00 Assessment/Plan Hospital Course (Demo Recall) IMP: 1. s/p Cardiopulmonary Arrest 2. Anoxic Brain Injury--examination concerning for brain 3. s/p Polypharmacy OD 4. Shock 5. DARLING 6. Demand ischemia 7. Rhabdomyolysis RECS: 1. We will attempt apnea test this morning. 2. Tube feeding as tolerated, free water. 3. Obtain EEG neuro recommendations 4. Vent support 5. For now, continue pressors, titrate to keep map greater than 65. 6 Palliative Care to see patient 40 min cc time NII JOHNSON MD, [facility] October 08, 2018 09:45
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
--- NOTE | 2018-10-08 10:29 | CONS ---
Assessment/Plan Assessment/Plan Hospital Course (Demo Recall) IMPRESSION: 1. Non-ST elevation myocardial infarction in the setting of cardiopulmonary arrest likely type 2 demand infarct as a result of cardiopulmonary arrest- Troponins downtrending. EF actually normal by echo this admit 2. Status post cardiopulmonary arrest, likely primary pulmonary event. 3. Congestive heart failure- BY echo diastolic acute on chronic but likely had systolic function during time of prolonged arrest 4. Respiratory failure, status post intubation. 5. Encephalopathy. 6. Cerebral edema. 7. Renal failure. 8. Shock liver. 9. Coagulopathy. 10. Leukocytosis. 11.Hypotension-off pressors 12.Hypothermia-s/p rewarming Recc: -ICU -continue abx's and f/u cx data -overall poor prognosis -follow volume status -wean pressors as tolerated Consultation Date/Type/Reason Admit Date/Time October 05, 2018 at 06:45 Initial Consult Date 10/05/18 Type of Consult Cardiology Reason for Consultation cardiac arrest Requesting Provider: SIGIFREDO TOLEDO MD Date/Time of Note DATE: 10/08/18 TIME: 10:27 Exam/Review of Systems Vital Signs Vitals Vital Signs Date Temp Pulse Resp B/P (MAP) Pulse Ox O2 O2 Flow FiO2 Time Delivery Rate 10/08/18 83 18 97 30 09:23 10/08/18 93/61 (72) Mechanical 06:00 Ventilator 10/08/18 98.4 04:00 Intake and Output 10/07/18 10/07/18 10/08/18 1414:59 22:59 06:59 IntakeIntake Total 1806.40 ml 1577.75 ml 1455.44 ml OutputOutput Total 760 ml 1525 ml 1625 ml BalanceBalance 1046.40 ml 52.75 ml -169.56 ml Exam Exam Review of Systems: CONSTITUTIONAL: No fevers, chills. PULMONARY: No sob CARDIOVASCULAR: No chest pain/palpitations GASTROINTESTINAL: No nausea/vomiting. GENITOURINARY: No hematuria/dysuria. MUSCULOSKELETAL: No myagias/arthalgias. PSYCHIATRIC: The patient denies depression. NEUROLOGIC:Encephalopathic Constitutional: alert Psych: no complaints Head: normocephalic ENMT: mucosa pink and moist Neck: supple, jvd (9 cm water) Respiratory: diminished breath sounds (at bases/B) Cardiovascular: regular rate and rhythm Gastrointestinal: soft, non-tender Musculoskeletal: muscle tone (normal) Extremities: edema (none) Neurological: other (No focal deficits) Labs Result Diagram: 10/08/18 0436 10/08/18 0436 Results 24hrs Laboratory Tests Test 10/07/18 12:35 10/07/18 14:53 10/07/18 16:11 10/07/18 17:41 Bedside Glucose 122 159 140 137 Test 10/07/18 20:06 10/07/18 21:59 10/07/18 23:54 10/08/18 01:59 Bedside Glucose 119 130 109 115 Test 10/08/18 04:09 10/08/18 04:20 10/08/18 04:36 10/08/18 05:51 Bedside Glucose 102 104 Lactic Acid Level 1.7 White Blood Count 15.7 H Red Blood Count 4.87 Hemoglobin 13.5 L Hematocrit 41.9 L Mean Corpuscular Volume 86.0 Mean Corpuscular 27.7 L Hemoglobin Mean Corpuscular 32.2 Hemoglobin Concent Red Cell Distribution 14.6 H Width Platelet Count 111 #L Mean Platelet Volume 10.8 H Immature Granulocytes % 0.600 H Neutrophils % Segmented Neutrophils 56 % (Manual) Band Neutrophils % 26 H (Manual) Lymphocytes % Lymphocytes % (Manual) 13 L Monocytes % Monocytes % (Manual) 1 Eosinophils % Eosinophils % (Manual) 2 Basophils % Basophils % (Manual) 1 Myelocytes % (Manual) 1 H Nucleated Red Blood 1 H Cells % Immature Granulocytes # 0.090 H Neutrophils # Neutrophils # (Manual) 9.4 H Band Neutrophils # 4.0 H Lymphocytes (Manual) 2.0 Lymphocytes # Monocytes # Monocytes # (Manual) 0.1 L Eosinophils # Basophils # Basophils # (Manual) 0.1 H Myelocytes # 0.1 H Nucleated Red Blood Cells # Platelet Estimate DECREASED Poikilocytosis 1+ Anisocytosis 1+ Sodium Level 151 H Potassium Level 3.5 Chloride Level 124 H Carbon Dioxide Level 22 Anion Gap 5 Blood Urea Nitrogen 19 # Creatinine 3.17 H Est Glomerular Filtrat 22 L Rate mL/min Glucose Level 108 Calcium Level 7.5 L Phosphorus Level 3.6 Magnesium Level 1.9 Test 10/08/18 09:18 Bedside Glucose 105 Medications Medications Current Medications Albuterol (Ventolin Hfa) 4 puff Q2H RESP THERAPY PRN INH SHORTNESS OF BREATH; Start 10/05/18 at 07:00 Ipratropium [place] (Atrovent Hfa) 4 puff Q2H RESP THERAPY PRN INH SHORTNESS OF BREATH; Start 10/05/18 at 07:00 Acetaminophen (Tylenol Liquid) 650 mg Q6H PRN PO PAIN LEVEL 1-3 OR FEVER; Start 10/05/18 at 07:00 Pantoprazole (Protonix Iv) 40 mg DAILY@06 IV Last administered on 10/08/18 05:42; Admin Dose 40 MG; Start 10/05/18 at 08:00 Diagnostic Test (Pha) (Accu-Chek) 1 ea Q1H XX Last administered on 10/08/18 08:00; Admin Dose 1 EA; Start 10/05/18 at 10:00 Insulin Human Regular 100 unit/ Sodium Chloride 100 ml @ 0 mls/hr PER PROTOCOL IV Last administered on 10/05/18 12:14; Admin Dose 1 MLS/HR; Start 10/05/18 at 10:00 Miscellaneous Information (* Miscellaneous Pharmacy Order) Treatment of Hypoglycemia: 1.BG 51... Per protocol XX ; Start 10/05/18 at 10:00 Dextrose (D50w Syringe) 25 ml Q15M PRN IV .DECREASED GLUCOSE; Start 10/05/18 at 10:00 Dextrose (D50w Syringe) 50 ml Q15M PRN IV .DECREASED GLUCOSE; Start 10/05/18 at 10:00 Dopamine HCl/ Dextrose 250 ml @ 5.966 mls/ hr TITRATE IV Last administered on 10/06/18 23:09; Admin Dose 11.933 MLS/HR; Start 10/05/18 at 13:00 Eye Lubricant (Akwa Oint) 1 applic Q6H BOTH EYES Last administered on 10/08/18 09:20; Admin Dose 1 APPLIC; Start 10/05/18 at 15:00 Eye Lubricant (Artificial Tears Oph) 2 drop Q6H BOTH EYES Last administered on 10/08/18 09:20; Admin Dose 2 DROP; Start 10/05/18 at 15:00 Magnesium Sulfate 50 ml @ 25 mls/hr PRN PRN IVPB PER TTM PROTOCOL Last administered on 10/05/18 19:59; Admin Dose 25 MLS/HR; Start 10/05/18 at 14:00 Midazolam HCl 50 ml @ 1 mls/hr TITRATE IV Last administered on 10/05/18at 17:23; Admin Dose 1 MLS/HR; Start 10/05/18 at 16:00 Norepinephrine 32 mg/Dextrose 250 ml @ 0.47 mls/hr TITRATE IV Last administered on 10/07/18at 04:28; Admin Dose 2.81 MLS/HR; Start 10/05/18 at 18:30 Potassium Chloride/Dextrose/ Sod Cl 1,000 ml @ 150 mls/hr Q6H40M IV Last administered on 10/08/18at 06:41; Admin Dose 150 MLS/HR; Start 10/06/18 at 08:30; Stop 10/08/18 at 17:50 Phenylephrine HCl 80 mg/Dextrose 250 ml @ 18.75 mls/ hr TITRATE IV Last administered on 10/08/18at 04:28; Admin Dose 37.5 MLS/HR; Start 10/06/18 at 21:30 Vasopressin 60 unit/Dextrose 60 ml @ 1.2 mls/hr Q12H IV Last administered on 10/06/18at 23:19; Admin Dose 1.2 MLS/HR; Start 10/06/18 at 22:30 Piperacillin Sod/ Tazobactam Sod 50 ml @ 100 mls/hr Q6 IVPB Last administered on 10/08/18at 05:42; Admin Dose 100 MLS/HR; Start 10/07/18 at 18:00 Potassium Chloride/Dextrose/ Sod Cl 1,000 ml @ 150 mls/hr Q6H40M IV ; Start 10/08/18 at 17:51 Desmopressin Acetate (Ddavp) 2 mcg BID IV ; Start 10/08/18 at 09:00 SIGIFREDO HERMOSILLO October 08, 2018 10:29
[2018-10-08] MEDS: VASOPRESSIN 60 UNIT in DEXTROSE 5% 57 ML IV SCH ×2 (10:30→22:30)
[2018-10-08] MEDS: NORepinephrine 32 MG in DEXTROSE 5% 218 ML IV SCH (11:51)
--- NOTE | 2018-10-08 15:10 | CONS ---
Assessment/Plan Assessment/Plan Hospital Course 37 M admitted to the [facility] s/p reportedly prolonged cardiac arrest. Now s/p TTM.. The patient's clinical examination is notable for absent brainstem and cortical signs, consistent with the clinical diagnosis of brain . EEG confirm cortical inactivity. Head CT on 10/05 was notable for generalized cerebral edema.. P: Await bedside apnea test to confirm brainstem inactivity, when medically able Consultation Date/Type/Reason Admit Date/Time October 05, 2018 at 06:45 Type of Consult Neurology Requesting Provider: SIGIFREDO TOLEDO MD Date/Time of Note DATE: 10/08/18 TIME: 15:10 24 HR Interval Summary Free Text/Dictation Continues critical care. S/p EEG. Awaiting apnea test. Family meeting scheduled for tomorrow. Subjective hx not possible: pt non-verbal, pt critical, pt critical status Exam Vital Signs Vitals Vital Signs Date Temp Pulse Resp B/P (MAP) Pulse Ox O2 O2 Flow FiO2 Time Delivery Rate 10/08/18 87 18 98 30 14:52 10/08/18 117/75 13:45 (89) 10/08/18 98.3 Mechanical 13:30 Ventilator Intake and Output 10/07/18 10/07/18 10/08/18 1515:00 23:00 07:00 IntakeIntake Total 1691.71 ml 1566.19 ml 1273.0 ml OutputOutput Total 1155 ml 1175 ml 1550 ml BalanceBalance 536.71 ml 391.19 ml -277.0 ml Exam PE: Gen Appearance: No Apparent Distress HEENT: Intubated Cardiovascular: Regular rate Abdomen: Soft Extremities: Dry NE: The patient was unresponsive. Cranial nerve examination was limited by mental status. Pupils were fixed and dilated. There was no afferent pupillary defect. Funduscopic examination was limited. Face was grossly symmetric, w/ absent corneal, cough, gag, oculocephalic, and vestibulo-ocular reflexes. Tone was reduced. Muscle bulk was normal. I did not see fasciculations. The patient did not withdraw to noxious stimulation x 4. Coordination and gait testing was limited by mental status. Granados's sign was absent. Plantar responses were mute. TOMASA SOLIS NP October 08, 2018 15:10 KENNY DIETRICH October 09, 2018 06:08
[2018-10-09] VITALS (104 sets, daily range): BP systolic 63–137; BP diastolic 32–98; PULSE 61–86; RESP 15–24
[2018-10-09] MEDS: D5W-0.45 NACL + KCL 10 MEQ 1,000 ML IV SCH ×4 (00:31→19:51)
[2018-10-09] MEDS: PIPER-TAZO 2.25 GM/NS 50 ML IVPB SCH ×4 (00:32→18:45)
[2018-10-09] MEDS: ACCU-CHEK XX SCH ×22 (01:40→23:30)
[2018-10-09] MEDS: OCULAR LUBRICANT 3.5 GM OPH OINT BOTH EYES SCH ×2 (03:16→07:57)
[2018-10-09] MEDS: ARTIFICIAL TEARS 15 ML OPH BOTH EYES SCH ×2 (03:16→07:57)
[2018-10-09] MEDS: PHENYLephrine 80 MG in DEXTROSE 5% 242 ML IV SCH ×2 (04:42→19:21)
[2018-10-09] MEDS: INSULIN HUMAN REGULAR 100 UNIT in SOD CHLORIDE 0.9% 99 ML IV SCH (04:47)
[2018-10-09] MEDS: PANTOPRAZOLE 40 MG INJ IV SCH (06:16)
[2018-10-09] MEDS ORDERED: POTASSIUM CHLORIDE 20 MEQ POWDER FOR ORAL SOLN NGT ONE (06:30)
[2018-10-09] MEDS: POTASSIUM CHLORIDE 50 ML IVPB SCH ×3 (07:06→12:56)
[2018-10-09] MEDS: VASOPRESSIN 60 UNIT in DEXTROSE 5% 57 ML IV SCH ×2 (07:38→22:30)
[2018-10-09] MEDS: DESMOPRESSIN 4 MCG INJ IV SCH (07:57)
--- NOTE | 2018-10-09 08:29 | PN ---
DATE: 10/09/2018 SUBJECTIVE: The patient is critically ill on full ventilatory support, on pressor support. The shelly ent's urinary output remains elevated, although output has decreased in the last 6 hours. No other e vents noted. OBJECTIVE: VITAL SIGNS: Blood pressure is 123/79, respirations 18, pulse 78, temperature 98.7. HEENT: Head is normocephalic. The patient's pupils are dilated and nonreactive to light. NECK: Supple. HEART: Regular rate. LUNGS: Show diminished breath sounds at the base. ABDOMEN: Soft, nontender to palpation without rebound or guarding. EXTREMITIES: Negative for clubbing, cyanosis. Positive edema. DERMATOLOGIC: No rashes. MUSCULOSKELETAL: No joint effusion. NEUROLOGIC: No change in exam, the patient remains obtunded. MEDICATIONS: The patient's medications have been reviewed. LABORATORY DATA: Reviewed. Urinalysis has been reviewed. ASSESSMENT AND PLAN: 1. Nonoliguric acute kidney injury with unknown baseline creatinine. Etiology of acute kidney injur y is secondary to acute tubular necrosis due to shock, ischemic hypoperfusion. The patient is curren tly in maintenance phase of acute tubular necrosis. His renal function appears to have stabilized in the last 48 hours. At this point, continue current treatment plans, supportive care, renally dose a ll medicines, continue pressor support, maintain MAP of 65. Continue antibiotic therapy. No need fo r renal replacement therapy at this time. 2. Hypokalemia. Etiology is likely multifactorial due to total body deficit, diuretic, urinary loss es. The patient is undergoing aggressive potassium repletion. We will give 40 mEq p.o. and 60 mEq I V. Monitor his potassium levels closely. 3. Hypernatremia. Etiology is secondary to diabetes insipidus likely central due to anoxic brain in [facility], possible component of nephrogenic due to acute kidney injury. The patient is currently on DDAV P 2 mcg IV q.12h. We will continue. Continue hypertonic fluids. We will start the patient on free water flushes 300 mL q.4h. Monitor serum sodium levels closely. 4. Ventilator-dependent respiratory failure. Vent settings and ABG was reviewed. Continue to monit or. 5. Mineral bone disorder. Monitor calcium and phosphorus levels. 6. Lactic acidosis secondary to shock. Continue to monitor. 7. Shock, etiology is multifactorial, presumed septic and neurogenic. Continue pressor support. Co ntinue IV fluids. Continue antibiotic therapy. 8. Cardiac arrest. Etiology is unclear. Continue to monitor. Follow up with Cardiology. 9. Anoxic brain injury. Neurologic exam per neurology is consistent with brain . The patient' s pupils are fixed and dilated. Continue to monitor. Consider withdrawal of care. Please note I spent over 30 minutes of critical care time with this possible. Dictated By: INDIRA GEORGE DO NR/NTS Conf#: [id number] DID#: [id number] CC: SIGIFREDO HERMOSILLO MD; BASHIR JIMENEZ; PUNEET BOATENG MD;*EndCC*
--- NOTE | 2018-10-09 08:35 | CONS ---
Consult Date/Type/Reason Admit Date/Time October 05, 2018 at 06:45 Initial Consult Date 10/05/18 Type of Consultation: Pulm/CCM Requesting Provider: SIGIFREDO TOLEDO MD Date/Time of Note DATE: 10/09/18 TIME: 08:33 Subjective NO acute events - pt comfortable - non-responsive - goal of care being adressed -no CP- replace K+. ROS: No fever, no chills, no nausea, no vomiting, no diarrhea/constipation - per nurse, hypothermia protocol complete Objective Vitals Vital Signs Date Temp Pulse Resp B/P (MAP) Pulse Ox O2 O2 Flow FiO2 Time Delivery Rate 10/09/18 77 08:00 10/09/18 123/79 100 07:15 (94) 10/09/18 Mechanical 07:00 Ventilator 10/09/18 30 05:27 10/09/18 98.5 04:00 Intake and Output 10/08/18 10/08/18 10/09/18 1515:00 23:00 07:00 IntakeIntake Total 1266.16 ml 1117.06 ml 1519.0 ml OutputOutput Total 2150 ml 1275 ml 570 ml BalanceBalance -883.84 ml -157.94 ml 949.0 ml Results/Medications Result Diagram: 10/09/18 0447 10/09/18 0400 Results 24 hrs Laboratory Tests Test 10/08/18 09:18 10/08/18 12:04 10/08/18 14:10 10/08/18 15:15 Bedside Glucose 105 116 Sodium Level 154 H Potassium Level 3.3 L Chloride Level 128 H Carbon Dioxide 22 Level Anion Gap 4 L Blood Urea 18 Nitrogen Creatinine 3.10 H Est Glomerular 23 L Filtrat Rate mL/min Glucose Level 128 Calcium Level 8.1 L Blood Gas Blood arterial Specimen Source Arterial Blood 10/08/2018 3:20:28 Date Drawn PM Arterial Blood 7.317 L pH (Temp corrected) Arterial Blood 36.8 pCO2 (Temp correct) Arterial Blood 104.3 H pO2 (Temp corrected) Arterial Blood 18.4 L HCO3 Arterial Blood -6.9 L Base Excess Arterial Blood 97.6 Oxygen Saturatio n Willie Test ACCEPTAB Arterial Blood Left Radial Gas Puncture Site Arterial 0.1 Blood Carboxyhem oglobin Arterial Blood 0.5 Methemoglobin Blood Gas A-a O2 66.4 H Differential Oxyhemoglobin 97.0 Percent Blood Gas 37.0 Temperature Blood Gas 18.0 Respiration Rate Blood Gas Actual 18 Respiration Rate Blood Gas VENT - AC Modality FiO2 30.0 Blood Gas Tidal 500.0 Volume Blood Gas High 5.0 PEEP Setting Blood Gas H NEIDA MILLER Critical Value Read Back Blood Gas T [facility] Notified Whom Blood Gas 10/08/2018 3:32:13 Notified Time PM Test 10/08/18 15:30 10/08/18 16:15 10/08/18 20:46 10/08/18 22:53 Bedside Glucose 87 110 121 Blood Gas Blood arterial Specimen Source Arterial Blood 10/08/2018 4:15:00 Date Drawn PM Arterial Blood 7.243 *L pH (Temp corrected) Arterial Blood 44.5 pCO2 (Temp correct) Arterial Blood 338.0 H pO2 (Temp corrected) Arterial Blood 18.8 L HCO3 Arterial Blood -8.4 L Base Excess Arterial Blood 99.4 H Oxygen Saturatio n Willie Test ACCEPTAB Arterial Blood Left Radial Gas Puncture Site Arterial 0.1 Blood Carboxyhem oglobin Arterial Blood 0.7 Methemoglobin Blood Gas A-a O2 330.5 H Differential Oxyhemoglobin 98.6 Percent Blood Gas 37.0 Temperature Blood Gas 18.0 Respiration Rate Blood Gas Actual 18 Respiration Rate Blood Gas VENT - AC Modality FiO2 100.0 Blood Gas Tidal 500.0 Volume Blood Gas High 5.0 PEEP Setting Blood Gas H NEIDA MILLER Critical Value Read Back Blood Gas T [facility] Notified Whom Blood Gas 10/08/2018 4:25:00 Notified Time PM Test 10/09/18 01:10 10/09/18 03:14 10/09/18 04:00 10/09/18 04:47 Bedside Glucose 117 115 Sodium Level 155 H Potassium Level 2.3 *L Chloride Level 130 H Carbon Dioxide 20 L Level Anion Gap 5 Blood Urea 21 H Nitrogen Creatinine 3.09 H Est Glomerular 23 L Filtrat Rate mL/min Glucose Level 141 Calcium Level 8.4 Phosphorus Level 2.4 #L Magnesium Level 2.0 White Blood 12.7 H Count Red Blood Count 4.79 Hemoglobin 13.2 L Hematocrit 41.8 L Mean Corpuscular 87.3 Volume Mean Corpuscular 27.6 L Hemoglobin Mean Corpuscular 31.6 L Hemoglobin Diana nt Red Cell 14.7 H Distribution Width Platelet Count 102 L Mean Platelet 10.8 H Volume Immature 0.500 H Granulocytes % Neutrophils % 82.4 H Lymphocytes % 8.4 L Monocytes % 5.0 Eosinophils % 3.3 Basophils % 0.4 Nucleated Red 0.0 Blood Cells % Immature 0.060 H Granulocytes # Neutrophils # 10.5 H Lymphocytes # 1.1 Monocytes # 0.6 Eosinophils # 0.4 Basophils # 0.1 Nucleated Red 0.0 Blood Cells # Test 10/09/18 05:11 10/09/18 06:38 Bedside Glucose 125 121 Home Meds Reported Medications Acetaminophen with Codeine (Acetaminophen-Cod #3 Tablet) 1 Each Tablet, 1 TAB PO BID PRN for PAIN, #7 TAB 10/05/18 Alprazolam* (Xanax*) 2 Mg Tablet, 2 MG PO BID PRN for ANXIETY, TAB 10/05/18 Albuterol Sulfate* (Ventolin HFA*) 18 Gm Hfa.aer.ad, 2 PUFF INHALATION Q4H, #1 INHALER 10/05/18 Medications Current Medications Albuterol (Ventolin Hfa) 4 puff Q2H RESP THERAPY PRN INH SHORTNESS OF BREATH; Start 10/05/18 at 07:00 Ipratropium [place] (Atrovent Hfa) 4 puff Q2H RESP THERAPY PRN INH SHORTNESS OF BREATH; Start 10/05/18 at 07:00 Acetaminophen (Tylenol Liquid) 650 mg Q6H PRN PO PAIN LEVEL 1-3 OR FEVER; Start 10/05/18 at 07:00 Pantoprazole (Protonix Iv) 40 mg DAILY@06 IV Last administered on 10/09/18at 06:16; Admin Dose 40 MG; Start 10/05/18 at 08:00 Diagnostic Test (Pha) (Accu-Chek) 1 ea Q1H XX Last administered on 10/09/18at 07:02; Admin Dose 1 EA; Start 10/05/18 at 10:00 Insulin Human Regular 100 unit/ Sodium Chloride 100 ml @ 0 mls/hr PER PROTOCOL IV Last administered on 10/09/18at 04:47; Admin Dose 0.5 MLS/HR; Start 10/05/18 at 10:00 Miscellaneous Information (* Miscellaneous Pharmacy Order) Treatment of Hypoglycemia: 1.BG 51... Per protocol XX ; Start 10/05/18 at 10:00 Dextrose (D50w Syringe) 25 ml Q15M PRN IV .DECREASED GLUCOSE; Start 10/05/18 at 10:00 Dextrose (D50w Syringe) 50 ml Q15M PRN IV .DECREASED GLUCOSE; Start 10/05/18 at 10:00 Dopamine HCl/ Dextrose 250 ml @ 5.966 mls/ hr TITRATE IV Last administered on 10/06/18 23:09; Admin Dose 11.933 MLS/HR; Start 10/05/18 at 13:00 Eye Lubricant (Akwa Oint) 1 applic Q6H BOTH EYES Last administered on 10/09/18 07:57; Admin Dose 1 APPLIC; Start 10/05/18 at 15:00 Eye Lubricant (Artificial Tears Oph) 2 drop Q6H BOTH EYES Last administered on 10/09/18 07:57; Admin Dose 2 DROP; Start 10/05/18 at 15:00 Magnesium Sulfate 50 ml @ 25 mls/hr PRN PRN IVPB PER TTM PROTOCOL Last administered on 10/05/18 19:59; Admin Dose 25 MLS/HR; Start 10/05/18 at 14:00 Midazolam HCl 50 ml @ 1 mls/hr TITRATE IV Last administered on 10/05/18 17:23; Admin Dose 1 MLS/HR; Start 10/05/18 at 16:00 Norepinephrine 32 mg/Dextrose 250 ml @ 0.47 mls/hr TITRATE IV Last administered on 10/08/18 11:51; Admin Dose 7.03 MLS/HR; Start 10/05/18 at 18:30 Phenylephrine HCl 80 mg/Dextrose 250 ml @ 18.75 mls/ hr TITRATE IV Last administered on 10/09/18 04:42; Admin Dose 37.5 MLS/HR; Start 10/06/18 at 21:30 Vasopressin 60 unit/Dextrose 60 ml @ 1.2 mls/hr Q12H IV Last administered on 10/06/18 23:19; Admin Dose 1.2 MLS/HR; Start 10/06/18 at 22:30 Piperacillin Sod/ Tazobactam Sod 50 ml @ 100 mls/hr Q6 IVPB Last administered on 10/09/18 06:16; Admin Dose 100 MLS/HR; Start 10/07/18 at 18:00 Potassium Chloride/Dextrose/ Sod Cl 1,000 ml @ 150 mls/hr Q6H40M IV Last administered on 10/09/18at 00:31; Admin Dose 150 MLS/HR; Start 10/08/18 at 17:51 Potassium Chloride 50 ml @ 25 mls/hr Q2H IVPB Last administered on 10/09/18at 07:06; Admin Dose 25 MLS/HR; Start 10/09/18 at 06:30; Stop 10/09/18 at 12:29 Desmopressin Acetate (Ddavp) 2 mcg Q12 IV ; Start 10/09/18 at 09:00 Assessment/Plan Hospital Course (Demo Recall) 1. Non-ST elevation myocardial infarction in the setting of cardiopulmonary arrest likely type 2 demand infarct as a result of cardiopulmonary arrest- Troponins downtrending. EF actually normal by echo this admit NO intervention currently planned. 2. Status post cardiopulmonary arrest, likely primary pulmonary event- opn vent now. 3. Congestive heart failure- BY echo diastolic acute on chronic but likely had systolic function during time of prolonged arrest - stable fluid status - not on pressors. 4. Respiratory failure, status post intubation. 5. Encephalopathy. 6. Cerebral edema - poor prognosis - goal of care being addressed. 7. Renal failure. 8. Shock liver. 9. Coagulopathy. 10. Leukocytosis. 11.Hypotension-off pressors 12.Hypothermia-s/p rewarming TOMMY FOUNTAIN MD October 09, 2018 08:35
[2018-10-09] MEDS ORDERED: DESMOPRESSIN 4 MCG INJ IV SCH (09:00)
--- NOTE | 2018-10-09 09:08 | CONS ---
Consult Date/Type/Reason Admit Date/Time October 05, 2018 at 06:45 Initial Consult Date 10/05/18 Type of Consult Pulmonary Requesting Provider: SIGIFREDO TOLEDO MD Date/Time of Note DATE: 10/09/18 TIME: 09:07 Subjective Patient continues mechanical ventilation remains unresponsive Unable to complete apnea test yesterday secondary to hemodynamic instability Objective Vital Signs Date Temp Pulse Resp B/P (MAP) Pulse Ox O2 O2 Flow FiO2 Time Delivery Rate 10/09/18 74 18 116/72 99 08:45 (87) 10/09/18 Mechanical 08:30 Ventilator 10/09/18 98.0 08:00 10/09/18 30 05:27 Intake and Output 10/08/18 10/08/18 10/09/18 1515:00 23:00 07:00 IntakeIntake Total 1266.16 ml 1117.06 ml 1519.0 ml OutputOutput Total 2150 ml 1275 ml 570 ml BalanceBalance -883.84 ml -157.94 ml 949.0 ml Exam GENERAL: Well-nourished well-developed gentleman on mechanical ventilation. VITAL SIGNS: per chart NECK: Supple. No JVD or lymphadenopathy. CARDIAC EXAM: S1, S2. No added sounds or murmurs. CHEST: clear bilaterally, No added sounds, rales or wheezes ABDOMEN: Soft, nontender. No guarding or rebound. EXTREMITIES: No cyanosis, clubbing or edema. NEUROLOGIC: Unresponsive on mechanical ventilation pupils fixed no gag reflex. Vent Setting Ventilator Support Mode: AC Fraction of Inspired Oxygen pe: 30 Positive End Expiratory Pressu: 5.0 Results/Medications Result Diagram: 10/09/18 0447 10/09/18 0400 Results 24 hrs Laboratory Tests Test 10/08/18 09:18 10/08/18 12:04 10/08/18 14:10 10/08/18 15:15 Bedside Glucose 105 116 Sodium Level 154 H Potassium Level 3.3 L Chloride Level 128 H Carbon Dioxide 22 Level Anion Gap 4 L Blood Urea 18 Nitrogen Creatinine 3.10 H Est Glomerular 23 L Filtrat Rate mL/min Glucose Level 128 Calcium Level 8.1 L Blood Gas Blood arterial Specimen Source Arterial Blood 10/08/2018 3:20:28 Date Drawn PM Arterial Blood 7.317 L pH (Temp corrected) Arterial Blood 36.8 pCO2 (Temp correct) Arterial Blood 104.3 H pO2 (Temp corrected) Arterial Blood 18.4 L HCO3 Arterial Blood -6.9 L Base Excess Arterial Blood 97.6 Oxygen Saturatio n Willie Test ACCEPTAB Arterial Blood Left Radial Gas Puncture Site Arterial 0.1 Blood Carboxyhem oglobin Arterial Blood 0.5 Methemoglobin Blood Gas A-a O2 66.4 H Differential Oxyhemoglobin 97.0 Percent Blood Gas 37.0 Temperature Blood Gas 18.0 Respiration Rate Blood Gas Actual 18 Respiration Rate Blood Gas VENT - AC Modality FiO2 30.0 Blood Gas Tidal 500.0 Volume Blood Gas High 5.0 PEEP Setting Blood Gas H NEIDA MILLER Critical Value Read Back Blood Gas [facility] Notified Whom Blood Gas 10/08/2018 3:32:13 Notified Time PM Test 10/08/18 15:30 10/08/18 16:15 10/08/18 20:46 10/08/18 22:53 Bedside Glucose 87 110 121 Blood Gas Blood arterial Specimen Source Arterial Blood 10/08/2018 4:15:00 Date Drawn PM Arterial Blood 7.243 *L pH (Temp corrected) Arterial Blood 44.5 pCO2 (Temp correct) Arterial Blood 338.0 H pO2 (Temp corrected) Arterial Blood 18.8 L HCO3 Arterial Blood -8.4 L Base Excess Arterial Blood 99.4 H Oxygen Saturatio n Willie Test ACCEPTAB Arterial Blood Left Radial Gas Puncture Site Arterial 0.1 Blood Carboxyhem oglobin Arterial Blood 0.7 Methemoglobin Blood Gas A-a O2 330.5 H Differential Oxyhemoglobin 98.6 Percent Blood Gas 37.0 Temperature Blood Gas 18.0 Respiration Rate Blood Gas Actual 18 Respiration Rate Blood Gas VENT - AC Modality FiO2 100.0 Blood Gas Tidal 500.0 Volume Blood Gas High 5.0 PEEP Setting Blood Gas H NEIDA MILLER Critical Value Read Back Blood Gas T [facility] Notified Whom Blood Gas 10/08/2018 4:25:00 Notified Time PM Test 10/09/18 01:10 10/09/18 03:14 10/09/18 04:00 10/09/18 04:47 Bedside Glucose 117 115 Sodium Level 155 H Potassium Level 2.3 *L Chloride Level 130 H Carbon Dioxide 20 L Level Anion Gap 5 Blood Urea 21 H Nitrogen Creatinine 3.09 H Est Glomerular 23 L Filtrat Rate mL/min Glucose Level 141 Calcium Level 8.4 Phosphorus Level 2.4 #L Magnesium Level 2.0 White Blood 12.7 H Count Red Blood Count 4.79 Hemoglobin 13.2 L Hematocrit 41.8 L Mean Corpuscular 87.3 Volume Mean Corpuscular 27.6 L Hemoglobin Mean Corpuscular 31.6 L Hemoglobin Diana nt Red Cell 14.7 H Distribution Width Platelet Count 102 L Mean Platelet 10.8 H Volume Immature 0.500 H Granulocytes % Neutrophils % 82.4 H Lymphocytes % 8.4 L Monocytes % 5.0 Eosinophils % 3.3 Basophils % 0.4 Nucleated Red 0.0 Blood Cells % Immature 0.060 H Granulocytes # Neutrophils # 10.5 H Lymphocytes # 1.1 Monocytes # 0.6 Eosinophils # 0.4 Basophils # 0.1 Nucleated Red 0.0 Blood Cells # Test 10/09/18 05:11 10/09/18 06:38 10/09/18 08:54 Bedside Glucose 125 121 112 Medications Current Medications Albuterol (Ventolin Hfa) 4 puff Q2H RESP THERAPY PRN INH SHORTNESS OF BREATH; Start 10/05/18 at 07:00 Ipratropium [place] (Atrovent Hfa) 4 puff Q2H RESP THERAPY PRN INH SHORTNESS OF BREATH; Start 10/05/18 at 07:00 Acetaminophen (Tylenol Liquid) 650 mg Q6H PRN PO PAIN LEVEL 1-3 OR FEVER; Start 10/05/18 at 07:00 Pantoprazole (Protonix Iv) 40 mg DAILY@06 IV Last administered on 10/09/18at 06:16; Admin Dose 40 MG; Start 10/05/18 at 08:00 Diagnostic Test (Pha) (Accu-Chek) 1 ea Q1H XX Last administered on 10/09/18at 07:02; Admin Dose 1 EA; Start 10/05/18 at 10:00 Insulin Human Regular 100 unit/ Sodium Chloride 100 ml @ 0 mls/hr PER PROTOCOL IV Last administered on 10/09/18at 04:47; Admin Dose 0.5 MLS/HR; Start 10/05/18 at 10:00 Miscellaneous Information (* Miscellaneous Pharmacy Order) Treatment of Hypoglycemia: 1.BG 51... Per protocol XX ; Start 10/05/18 at 10:00 Dextrose (D50w Syringe) 25 ml Q15M PRN IV .DECREASED GLUCOSE; Start 10/05/18 at 10:00 Dextrose (D50w Syringe) 50 ml Q15M PRN IV .DECREASED GLUCOSE; Start 10/05/18 at 10:00 Dopamine HCl/ Dextrose 250 ml @ 5.966 mls/ hr TITRATE IV Last administered on 10/06/18 23:09; Admin Dose 11.933 MLS/HR; Start 10/05/18 at 13:00 Eye Lubricant (Akwa Oint) 1 applic Q6H BOTH EYES Last administered on 10/09/18 07:57; Admin Dose 1 APPLIC; Start 10/05/18 at 15:00 Eye Lubricant (Artificial Tears Oph) 2 drop Q6H BOTH EYES Last administered on 10/09/18 07:57; Admin Dose 2 DROP; Start 10/05/18 at 15:00 Magnesium Sulfate 50 ml @ 25 mls/hr PRN PRN IVPB PER TTM PROTOCOL Last administered on 10/05/18 19:59; Admin Dose 25 MLS/HR; Start 10/05/18 at 14:00 Midazolam HCl 50 ml @ 1 mls/hr TITRATE IV Last administered on 10/05/18 17:23; Admin Dose 1 MLS/HR; Start 10/05/18 at 16:00 Norepinephrine 32 mg/Dextrose 250 ml @ 0.47 mls/hr TITRATE IV Last administered on 10/08/18 11:51; Admin Dose 7.03 MLS/HR; Start 10/05/18 at 18:30 Phenylephrine HCl 80 mg/Dextrose 250 ml @ 18.75 mls/ hr TITRATE IV Last administered on 10/09/18 04:42; Admin Dose 37.5 MLS/HR; Start 10/06/18 at 21:30 Vasopressin 60 unit/Dextrose 60 ml @ 1.2 mls/hr Q12H IV Last administered on 10/06/18 23:19; Admin Dose 1.2 MLS/HR; Start 10/06/18 at 22:30 Piperacillin Sod/ Tazobactam Sod 50 ml @ 100 mls/hr Q6 IVPB Last administered on 10/09/18 06:16; Admin Dose 100 MLS/HR; Start 10/07/18 at 18:00 Potassium Chloride/Dextrose/ Sod Cl 1,000 ml @ 150 mls/hr Q6H40M IV Last administered on 10/09/18at 00:31; Admin Dose 150 MLS/HR; Start 10/08/18 at 17:51 Potassium Chloride 50 ml @ 25 mls/hr Q2H IVPB Last administered on 10/09/18at 07:06; Admin Dose 25 MLS/HR; Start 10/09/18 at 06:30; Stop 10/09/18 at 12:29 Desmopressin Acetate (Ddavp) 2 mcg Q12 IV ; Start 10/09/18 at 09:00 Assessment/Plan Hospital Course (Demo Recall) IMP: 1. s/p Cardiopulmonary Arrest 2. Anoxic Brain Injury--examination concerning for brain 3. s/p Polypharmacy OD 4. Shock 5. DARLING 6. Demand ischemia 7. Rhabdomyolysis RECS: 1. Cerebral perfusion study 2. Tube feeding as tolerated, free water. Increase free water 3. EEG and neurology recommendations 4. Vent support 5. For now, continue pressors, titrate to keep map greater than 65. 6 Palliative Care family conference this afternoon. 40 min cc time NII JOHNSON MD, [facility] October 09, 2018 09:08
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
--- NOTE | 2018-10-09 10:47 | CONS ---
Assessment/Plan Assessment/Plan Assessment/Plan (Daily) Patient's clinical condition has not changed in the last 24 hours. EEG consistent with brain , apnea study could not be done as patient became hypotensive and hemodynamically unstable. Ability of getting a flow study today, if patient is unable to be transported out of the ICU will still speak with family members about discontinuing care based on clinical findings and noninvasive findings, EEG findings specifically. Consultation Date/Type/Reason Admit Date/Time October 05, 2018 at 06:45 Initial Consult Date 10/05/18 Requesting Provider: SIGIFREDO TOLEDO MD Date/Time of Note DATE: 10/09/18 TIME: 10:46 Exam/Review of Systems Exam Vitals Vital Signs Date Temp Pulse Resp B/P (MAP) Pulse Ox O2 O2 Flow FiO2 Time Delivery Rate 10/09/18 74 18 116/72 99 08:45 (87) 10/09/18 Mechanical 08:30 Ventilator 10/09/18 98.0 08:00 10/09/18 30 05:27 Intake and Output 10/08/18 10/08/18 10/09/18 1515:00 23:00 07:00 IntakeIntake Total 1266.16 ml 1117.06 ml 1519.0 ml OutputOutput Total 2150 ml 1275 ml 570 ml BalanceBalance -883.84 ml -157.94 ml 949.0 ml Results Result Diagram: 10/09/18 0447 10/09/18 0400 Results 24hrs Laboratory Tests Test 10/08/18 12:04 10/08/18 14:10 10/08/18 15:15 10/08/18 15:30 Bedside Glucose 116 87 Sodium Level 154 H Potassium Level 3.3 L Chloride Level 128 H Carbon Dioxide 22 Level Anion Gap 4 L Blood Urea 18 Nitrogen Creatinine 3.10 H Est Glomerular 23 L Filtrat Rate mL/min Glucose Level 128 Calcium Level 8.1 L Blood Gas Blood arterial Specimen Source Arterial Blood 10/08/2018 3:20:28 Date Drawn PM Arterial Blood 7.317 L pH (Temp corrected) Arterial Blood 36.8 pCO2 (Temp correct) Arterial Blood 104.3 H pO2 (Temp corrected) Arterial Blood 18.4 L HCO3 Arterial Blood -6.9 L Base Excess Arterial Blood 97.6 Oxygen Saturatio n Willie Test ACCEPTAB Arterial Blood Left Radial Gas Puncture Site Arterial 0.1 Blood Carboxyhem oglobin Arterial Blood 0.5 Methemoglobin Blood Gas A-a O2 66.4 H Differential Oxyhemoglobin 97.0 Percent Blood Gas 37.0 Temperature Blood Gas 18.0 Respiration Rate Blood Gas Actual 18 Respiration Rate Blood Gas VENT - AC Modality FiO2 30.0 Blood Gas Tidal 500.0 Volume Blood Gas High 5.0 PEEP Setting Blood Gas H NEIDA MILLER Critical Value Read Back Blood Gas [facility] Not[facility] Whom Blood Gas 10/08/2018 3:32:13 Notified Time PM Test 10/08/18 16:15 10/08/18 20:46 10/08/18 22:53 10/09/18 01:10 Blood Gas Blood arterial Specimen Source Arterial Blood 10/08/2018 4:15:00 Date Drawn PM Arterial Blood 7.243 *L pH (Temp corrected) Arterial Blood 44.5 pCO2 (Temp correct) Arterial Blood 338.0 H pO2 (Temp corrected) Arterial Blood 18.8 L HCO3 Arterial Blood -8.4 L Base Excess Arterial Blood 99.4 H Oxygen Saturatio n Willie Test ACCEPTAB Arterial Blood Left Radial Gas Puncture Site Arterial 0.1 Blood Carboxyhem oglobin Arterial Blood 0.7 Methemoglobin Blood Gas A-a O2 330.5 H Differential Oxyhemoglobin 98.6 Percent Blood Gas 37.0 Temperature Blood Gas 18.0 Respiration Rate Blood Gas Actual 18 Respiration Rate Blood Gas VENT - AC Modality FiO2 100.0 Blood Gas Tidal 500.0 Volume Blood Gas High 5.0 PEEP Setting Blood Gas H NEIDA MILLER Critical Value Read Back Blood Gas T [facility] Notified Whom Blood Gas 10/08/2018 4:25:00 Notified Time PM Bedside Glucose 110 121 117 Test 10/09/18 03:14 10/09/18 04:00 10/09/18 04:47 10/09/18 05:11 Bedside Glucose 115 125 Sodium Level 155 H Potassium Level 2.3 *L Chloride Level 130 H Carbon Dioxide 20 L Level Anion Gap 5 Blood Urea 21 H Nitrogen Creatinine 3.09 H Est Glomerular 23 L Filtrat Rate mL/min Glucose Level 141 Calcium Level 8.4 Phosphorus Level 2.4 #L Magnesium Level 2.0 White Blood 12.7 H Count Red Blood Count 4.79 Hemoglobin 13.2 L Hematocrit 41.8 L Mean Corpuscular 87.3 Volume Mean Corpuscular 27.6 L Hemoglobin Mean Corpuscular 31.6 L Hemoglobin Diana nt Red Cell 14.7 H Distribution Width Platelet Count 102 L Mean Platelet 10.8 H Volume Immature 0.500 H Granulocytes % Neutrophils % 82.4 H Lymphocytes % 8.4 L Monocytes % 5.0 Eosinophils % 3.3 Basophils % 0.4 Nucleated Red 0.0 Blood Cells % Immature 0.060 H Granulocytes # Neutrophils # 10.5 H Lymphocytes # 1.1 Monocytes # 0.6 Eosinophils # 0.4 Basophils # 0.1 Nucleated Red 0.0 Blood Cells # Test 10/09/18 06:38 10/09/18 08:54 Bedside Glucose 121 112 Medications Medication Current Medications Albuterol (Ventolin Hfa) 4 puff Q2H RESP THERAPY PRN INH SHORTNESS OF BREATH; Start 10/05/18 at 07:00 Ipratropium [place] (Atrovent Hfa) 4 puff Q2H RESP THERAPY PRN INH SHORTNESS OF BREATH; Start 10/05/18 at 07:00 Acetaminophen (Tylenol Liquid) 650 mg Q6H PRN PO PAIN LEVEL 1-3 OR FEVER; Start 10/05/18 at 07:00 Pantoprazole (Protonix Iv) 40 mg DAILY@06 IV Last administered on 10/09/18at 06:16; Admin Dose 40 MG; Start 10/05/18 at 08:00 Diagnostic Test (Pha) (Accu-Chek) 1 ea Q1H XX Last administered on 10/09/18at 07:02; Admin Dose 1 EA; Start 10/05/18 at 10:00 Insulin Human Regular 100 unit/ Sodium Chloride 100 ml @ 0 mls/hr PER PROTOCOL IV Last administered on 10/09/18at 04:47; Admin Dose 0.5 MLS/HR; Start 10/05/18 at 10:00 Miscellaneous Information (* Miscellaneous Pharmacy Order) Treatment of Hypoglycemia: 1.BG 51... Per protocol XX ; Start 10/05/18 at 10:00 Dextrose (D50w Syringe) 25 ml Q15M PRN IV .DECREASED GLUCOSE; Start 10/05/18 at 10:00 Dextrose (D50w Syringe) 50 ml Q15M PRN IV .DECREASED GLUCOSE; Start 10/05/18 at 10:00 Dopamine HCl/ Dextrose 250 ml @ 5.966 mls/ hr TITRATE IV Last administered on 10/06/18 23:09; Admin Dose 11.933 MLS/HR; Start 10/05/18 at 13:00 Eye Lubricant (Akwa Oint) 1 applic Q6H BOTH EYES Last administered on 10/09/18 07:57; Admin Dose 1 APPLIC; Start 10/05/18 at 15:00 Eye Lubricant (Artificial Tears Oph) 2 drop Q6H BOTH EYES Last administered on 10/09/18 07:57; Admin Dose 2 DROP; Start 10/05/18 at 15:00 Magnesium Sulfate 50 ml @ 25 mls/hr PRN PRN IVPB PER TTM PROTOCOL Last administered on 10/05/18 19:59; Admin Dose 25 MLS/HR; Start 10/05/18 at 14:00 Midazolam HCl 50 ml @ 1 mls/hr TITRATE IV Last administered on 10/05/18 17:23; Admin Dose 1 MLS/HR; Start 10/05/18 at 16:00 Norepinephrine 32 mg/Dextrose 250 ml @ 0.47 mls/hr TITRATE IV Last admin istered on 10/08/18 11:51; Admin Dose 7.03 MLS/HR; Start 10/05/18 at 18:30 Phenylephrine HCl 80 mg/Dextrose 250 ml @ 18.75 mls/ hr TITRATE IV Last administered on 10/09/18 04:42; Admin Dose 37.5 MLS/HR; Start 10/06/18 at 21:30 Vasopressin 60 unit/Dextrose 60 ml @ 1.2 mls/hr Q12H IV Last administered on 10/06/18 23:19; Admin Dose 1.2 MLS/HR; Start 10/06/18 at 22:30 Piperacillin Sod/ Tazobactam Sod 50 ml @ 100 mls/hr Q6 IVPB Last administered on 10/09/18 06:16; Admin Dose 100 MLS/HR; Start 10/07/18 at 18:00 Potassium Chloride/Dextrose/ Sod Cl 1,000 ml @ 150 mls/hr Q6H40M IV Last administered on 10/09/18 00:31; Admin Dose 150 MLS/HR; Start 10/08/18 at 17:51 Potassium Chloride 50 ml @ 25 mls/hr Q2H IVPB Last administered on 10/09/18at 07:06; Admin Dose 25 MLS/HR; Start 10/09/18 at 06:30; Stop 10/09/18 at 12:29 Desmopressin Acetate (Ddavp) 2 mcg Q12 IV ; Start 10/09/18 at 09:00 SAIMA WILDER October 09, 2018 10:47
--- NOTE | 2018-10-09 13:30 | CONS ---
Assessment/Plan Assessment/Plan Hospital Course 37 M admitted to the [facility] s/p reportedly prolonged cardiac arrest. Now s/p TTM.. The patient's clinical examination is notable for absent brainstem and cortical signs, consistent with the clinical diagnosis of brain . (Apnea testing was limited by hemodynamic instability.) EEG confirmed electrocerebral inactivity. Head CT on 10/05 was notable for generalized cerebral edema.. Consultation Date/Type/Reason Admit Date/Time October 05, 2018 at 06:45 Type of Consult Neurology Reason for Consultation coma Requesting Provider: SIGIFREDO TOLEDO MD Date/Time of Note DATE: 10/09/18 TIME: 13:29 24 HR Interval Summary Free Text/Dictation Continues critical care. Pt reportedly unable to tolerate apnea test. Family meeting scheduled for today. Exam Vital Signs Vitals Vital Signs Date Temp Pulse Resp B/P (MAP) Pulse Ox O2 O2 Flow FiO2 Time Delivery Rate 10/09/18 72 18 99 30 11:20 10/09/18 116/72 08:45 (87) 10/09/18 Mechanical 08:30 Ventilator 10/09/18 98.0 08:00 Intake and Output 10/08/18 10/08/18 10/09/18 1515:00 23:00 07:00 IntakeIntake Total 1266.16 ml 1117.06 ml 1519.0 ml OutputOutput Total 2150 ml 1275 ml 570 ml BalanceBalance -883.84 ml -157.94 ml 949.0 ml Exam PE: Gen Appearance: No Apparent Distress HEENT: Intubated Cardiovascular: Regular rate Abdomen: Soft Extremities: Dry NE: The patient was unresponsive. Cranial nerve examination was limited by mental status. Pupils were fixed and dilated. There was no afferent pupillary defect. Funduscopic examination was limited. Face was grossly symmetric, w/ absent corneal, cough, gag, oculocephalic, and vestibulo-ocular reflexes. Tone was reduced. Muscle bulk was normal. I did not see fasciculations. The patient did not withdraw to noxious stimulation x 4. Coordination and gait testing was limited by mental status. Granados's sign was absent. Plantar responses were mute. TOMASA SOLIS NP October 09, 2018 13:30 KENNY DIETRICH October 09, 2018 17:28
--- NOTE | 2018-10-09 16:52 | CONS ---
Assessment/Plan Assessment/Plan Assessment/Plan (Daily) Dictating a addendum progress note patient is clinically on examination he has no oculocephalics since admission, he has no gag reflex, no purposeful movements, overbreathing the ventilator. Is also EEG is flat indicating clinical brain this was read out by neurology. Patient also had a read out by radiology. Patient is clinically and objectively brain-. Consultation Date/Type/Reason Admit Date/Time October 05, 2018 at 06:45 Date/Time of Note DATE: 10/09/18 TIME: 16:48 Past Medical History Medical History: other (Unknown) Home Meds Reported Medications Acetaminophen with Codeine (Acetaminophen-Cod #3 Tablet) 1 Each Tablet, 1 TAB PO BID PRN for PAIN, #7 TAB 10/05/18 Alprazolam* (Xanax*) 2 Mg Tablet, 2 MG PO BID PRN for ANXIETY, TAB 10/05/18 Albuterol Sulfate* (Ventolin HFA*) 18 Gm Hfa.aer.ad, 2 PUFF INHALATION Q4H, #1 INHALER 10/05/18 Medications Current Medications Albuterol (Ventolin Hfa) 4 puff Q2H RESP THERAPY PRN INH SHORTNESS OF BREATH; Start 10/05/18 at 07:00 Ipratropium [place] (Atrovent Hfa) 4 puff Q2H RESP THERAPY PRN INH SHORTNESS OF BREATH; Start 10/05/18 at 07:00 Acetaminophen (Tylenol Liquid) 650 mg Q6H PRN PO PAIN LEVEL 1-3 OR FEVER; Start 10/05/18 at 07:00 Pantoprazole (Protonix Iv) 40 mg DAILY@06 IV Last administered on 10/09/18at 06:16; Admin Dose 40 MG; Start 10/05/18 at 08:00 Diagnostic Test (Pha) (Accu-Chek) 1 ea Q1H XX Last administered on 10/09/18at 12: 55; Admin Dose 1 EA; Start 10/05/18 at 10:00 Insulin Human Regular 100 unit/ Sodium Chloride 100 ml @ 0 mls/hr PER PROTOCOL IV Last administered on 10/09/18at 04:47; Admin Dose 0.5 MLS/HR; Start 10/05/18 at 10:00 Miscellaneous Information (* Miscellaneous Pharmacy Order) Treatment of Hypoglycemia: 1.BG 51... Per protocol XX ; Start 10/05/18 at 10:00 Dextrose (D50w Syringe) 25 ml Q15M PRN IV .DECREASED GLUCOSE; Start 10/05/18 at 10:00 Dextrose (D50w Syringe) 50 ml Q15M PRN IV .DECREASED GLUCOSE; Start 10/05/18 at 10:00 Dopamine HCl/ Dextrose 250 ml @ 5.966 mls/ hr TITRATE IV Last administered on 10/06/18 23:09; Admin Dose 11.933 MLS/HR; Start 10/05/18 at 13:00 Eye Lubricant (Akwa Oint) 1 applic Q6H BOTH EYES Last administered on 10/09/18 07:57; Admin Dose 1 APPLIC; Start 10/05/18 at 15:00 Eye Lubricant (Artificial Tears Oph) 2 drop Q6H BOTH EYES Last administered on 10/09/18 07:57; Admin Dose 2 DROP; Start 10/05/18 at 15:00 Magnesium Sulfate 50 ml @ 25 mls/hr PRN PRN IVPB PER TTM PROTOCOL Last administered on 10/05/18 19:59; Admin Dose 25 MLS/HR; Start 10/05/18 at 14:00 Midazolam HCl 50 ml @ 1 mls/hr TITRATE IV Last administered on 10/05/18 17:23; Admin Dose 1 MLS/HR; Start 10/05/18 at 16:00 Norepinephrine 32 mg/Dextrose 250 ml @ 0.47 mls/hr TITRATE IV Last administered on 10/08/18 11:51; Admin Dose 7.03 MLS/HR; Start 10/05/18 at 18:30 Phenylephrine HCl 80 mg/Dextrose 250 ml @ 18.75 mls/ hr TITRATE IV Last administered on 10/09/18 04:42; Admin Dose 37.5 MLS/HR; Start 10/06/18 at 21:30 Vasopressin 60 unit/Dextrose 60 ml @ 1.2 mls/hr Q12H IV Last administered on 10/06/18 23:19; Admin Dose 1.2 MLS/HR; Start 10/06/18 at 22:30 Piperacillin Sod/ Tazobactam Sod 50 ml @ 100 mls/hr Q6 IVPB Last administered on 10/09/18 06:16; Admin Dose 100 MLS/HR; Start 10/07/18 at 18:00 Potassium Chloride/Dextrose/ Sod Cl 1,000 ml @ 150 mls/hr Q6H40M IV Last administered on 10/09/18at 12:51; Admin Dose 150 MLS/HR; Start 10/08/18 at 17:51 Desmopressin Acetate (Ddavp) 2 mcg Q12 IV ; Start 10/09/18 at 09:00 Famotidine (Pepcid) 20 mg DAILY@06 GTB ; Start 10/10/18 at 06:00 Allergies: Coded Allergies: peanut oil (Verified Allergy, Unknown, 10/05/18) Past Surgical History Past Surgical Hx: other (Unknown) Social History Alcohol Use: occasionally Smoking Status: Unknown if ever smoked Drug Use: marijuana, other (To be determined with patient's tox screen before being given opioids and benzodiazepine in the emergency room was positive for opioids and benzodiazepines) Exam/Review of Systems Exam Vitals Vital Signs Date Temp Pulse Resp B/P (MAP) Pulse Ox O2 O2 Flow FiO2 Time Delivery Rate 10/09/18 73 16:00 10/09/18 97.9 19 122/89 100 15:15 (100) 10/09/18 Mechanical 15:00 Ventilator 10/09/18 30 11:20 Intake and Output 10/08/18 10/08/18 10/09/18 1515:00 23:00 07:00 IntakeIntake Total 1266.16 ml 1117.06 ml 1519.0 ml OutputOutput Total 2150 ml 1275 ml 570 ml BalanceBalance -883.84 ml -157.94 ml 949.0 ml Results Result Diagram: 10/09/18 0447 10/09/18 1408 Results 24hrs Laboratory Tests Test 10/08/18 20:46 10/08/18 22:53 10/09/18 01:10 10/09/18 03:14 Bedside Glucose 110 121 117 115 Test 10/09/18 04:00 10/09/18 04:47 10/09/18 05:11 10/09/18 06:38 Sodium Level 155 H Potassium Level 2.3 *L Chloride Level 130 H Carbon Dioxide Level 20 L Anion Gap 5 Blood Urea Nitrogen 21 H Creatinine 3.09 H Est Glomerular Filtrat 23 L Rate mL/min Glucose Level 141 Calcium Level 8.4 Phosphorus Level 2.4 #L Magnesium Level 2.0 White Blood Count 12.7 H Red Blood Count 4.79 Hemoglobin 13.2 L Hematocrit 41.8 L Mean Corpuscular Volume 87.3 Mean Corpuscular 27.6 L Hemoglobin Mean Corpuscular 31.6 L Hemoglobin Concent Red Cell Distribution 14.7 H Width Platelet Count 102 L Mean Platelet Volume 10.8 H Immature Granulocytes % 0.500 H Neutrophils % 82.4 H Lymphocytes % 8.4 L Monocytes % 5.0 Eosinophils % 3.3 Basophils % 0.4 Nucleated Red Blood 0.0 Cells % Immature Granulocytes # 0.060 H Neutrophils # 10.5 H Lymphocytes # 1.1 Monocytes # 0.6 Eosinophils # 0.4 Basophils # 0.1 Nucleated Red Blood 0.0 Cells # Bedside Glucose 125 121 Test 10/09/18 08:54 10/09/18 11:17 10/09/18 12:54 10/09/18 14:08 Bedside Glucose 112 76 73 Sodium Level 152 H Potassium Level 4.2 Chloride Level 129 H Carbon Dioxide Level 20 L Anion Gap 3 L Blood Urea Nitrogen 23 H Creatinine 2.97 H Est Glomerular Filtrat 24 L Rate mL/min Glucose Level 103 Calcium Level 8.1 L Test 10/09/18 15:24 Bedside Glucose 107 Medications Medication Current Medications Albuterol (Ventolin Hfa) 4 puff Q2H RESP THERAPY PRN INH SHORTNESS OF BREATH; Start 10/05/18 at 07:00 Ipratropium [place] (Atrovent Hfa) 4 puff Q2H RESP THERAPY PRN INH SHORTNESS OF BREATH; Start 10/05/18 at 07:00 Acetaminophen (Tylenol Liquid) 650 mg Q6H PRN PO PAIN LEVEL 1-3 OR FEVER; Start 10/05/18 at 07:00 Pantoprazole (Protonix Iv) 40 mg DAILY@06 IV Last administered on 10/09/18at 06:16; Admin Dose 40 MG; Start 10/05/18 at 08:00 Diagnostic Test (Pha) (Accu-Chek) 1 ea Q1H XX Last administered on 10/09/18at 12:55; Admin Dose 1 EA; Start 10/05/18 at 10:00 Insulin Human Regular 100 unit/ Sodium Chloride 100 ml @ 0 mls/hr PER PROTOCOL IV Last administered on 10/09/18at 04:47; Admin Dose 0.5 MLS/HR; Start 10/05/18 at 10:00 Miscellaneous Information (* Miscellaneous Pharmacy Order) Treatment of Hypoglycemia: 1.BG 51... Per protocol XX ; Start 10/05/18 at 10:00 Dextrose (D50w Syringe) 25 ml Q15M PRN IV .DECREASED GLUCOSE; Start 10/05/18 at 10:00 Dextrose (D50w Syringe) 50 ml Q15M PRN IV .DECREASED GLUCOSE; Start 10/05/18 at 10:00 Dopamine HCl/ Dextrose 250 ml @ 5.966 mls/ hr TITRATE IV Last administered on 10/06/18 23:09; Admin Dose 11.933 MLS/HR; Start 10/05/18 at 13:00 Eye Lubricant (Akwa Oint) 1 applic Q6H BOTH EYES Last administered on 10/09/18 07:57; Admin Dose 1 APPLIC; Start 10/05/18 at 15:00 Eye Lubricant (Artificial Tears Oph) 2 drop Q6H BOTH EYES Last administered on 10/09/18 07:57; Admin Dose 2 DROP; Start 10/05/18 at 15:00 Magnesium Sulfate 50 ml @ 25 mls/hr PRN PRN IVPB PER TTM PROTOCOL Last administered on 10/05/18 19:59; Admin Dose 25 MLS/HR; Start 10/05/18 at 14:00 Midazolam HCl 50 ml @ 1 mls/hr TITRATE IV Last administered on 10/05/18 17:23; Admin Dose 1 MLS/HR; Start 10/05/18 at 16:00 Norepinephrine 32 mg/Dextrose 250 ml @ 0.47 mls/hr TITRATE IV Last administered on 10/08/18 11:51; Admin Dose 7.03 MLS/HR; Start 10/05/18 at 18:30 Phenylephrine HCl 80 mg/Dextrose 250 ml @ 18.75 mls/ hr TITRATE IV Last administered on 10/09/18 04:42; Admin Dose 37.5 MLS/HR; Start 10/06/18 at 21:30 Vasopressin 60 unit/Dextrose 60 ml @ 1.2 mls/hr Q12H IV Last administered on 10/06/18 23:19; Admin Dose 1.2 MLS/HR; Start 10/06/18 at 22:30 Piperacillin Sod/ Tazobactam Sod 50 ml @ 100 mls/hr Q6 IVPB Last administered on 10/09/18at 06:16; Admin Dose 100 MLS/HR; Start 10/07/18 at 18:00 Potassium Chloride/Dextrose/ Sod Cl 1,000 ml @ 150 mls/hr Q6H40M IV Last administered on 10/09/18at 12:51; Admin Dose 150 MLS/HR; Start 10/08/18 at 17:51 Desmopressin Acetate (Ddavp) 2 mcg Q12 IV ; Start 10/09/18 at 09:00 Famotidine (Pepcid) 20 mg DAILY@06 GTB ; Start 10/10/18 at 06:00 SAIMA WILDER October 09, 2018 16:52
[2018-10-09] MEDS ORDERED: ACCU-CHEK XX SCH (22:00)
[2018-10-10] VITALS (69 sets, daily range): BP systolic 91–138; BP diastolic 61–101; PULSE 48–81; RESP 14–25
[2018-10-10] MEDS: PIPER-TAZO 2.25 GM/NS 50 ML IVPB SCH ×2 (00:06→06:07)
[2018-10-10] MEDS: ACCU-CHEK XX SCH ×3 (01:10→05:12)
[2018-10-10] MEDS: D5W-0.45 NACL + KCL 10 MEQ 1,000 ML IV SCH (02:35)
[2018-10-10] MEDS ORDERED: FAMOTIDINE 20 MG TAB GTB SCH (06:00)
[2018-10-10] MEDS ORDERED: POTASSIUM CHLORIDE 100 ML IVPB ONE (06:01)
[2018-10-10] MEDS: POTASSIUM CHLORIDE 100 ML IVPB SCH ×3 (06:07→10:30)
[2018-10-10] MEDS: PANTOPRAZOLE 40 MG INJ IV SCH (06:07)
[2018-10-10] MEDS: PHENYLephrine 80 MG in DEXTROSE 5% 242 ML IV SCH ×2 (06:14→17:07)
[2018-10-10] MEDS ORDERED: POTASSIUM PHOSPHATE 40 MEQ in SOD CHLORIDE 0.9% 250 ML IVPB ONE (07:30)
--- NOTE | 2018-10-10 08:10 | PN ---
DATE: 10/10/2018 SUBJECTIVE: The patient is critically ill. The patient was reported to have brain by two phys icians. The patient was apparently pending possible terminal extubation. To be determined by family and primary team. Overnight, the patient has had minimal urinary output. DDAVP was held. The shelly ent remains on full ventilatory support. OBJECTIVE: VITAL SIGNS: Blood pressure is 112/72, respirations 19, pulse 56, temperature 98.6. HEENT: Head is normocephalic. Pupils are fixed and dilated. NECK: Supple. HEART: Regular rate. LUNGS: Show diminished breath sounds at the base. ABDOMEN: Soft, nontender to palpation without rebound or guarding. EXTREMITIES: Negative for clubbing, cyanosis. Positive edema. DERMATOLOGIC: No rashes. MUSCULOSKELETAL: No joint effusion. NEUROLOGIC: The patient is obtunded. MEDICATIONS: Reviewed. LABORATORY DATA: Shows a white count 8.8, hemoglobin 12.4, platelet count is 81. Sodium 152, potass ium 1.8, chloride 129, bicarbonate 19, BUN 21, creatinine 2.65, phosphorus 2.0, calcium 8.2. IMAGING STUDIES: Chest x-ray was reviewed noted interstitial edema. ASSESSMENT AND PLAN: 1. Nonoliguric acute kidney injury with unknown baseline creatinine. Etiology of acute kidney injur y is secondary to acute tubular necrosis. The patient appears to be entering recovery phase of acute tubular necrosis. Renal function has slowly been improving. Continue current treatment plans, supp ortive care, renally dose all medicines, continue pressor support and continue antibiotic therapy. 2. Hypokalemia. Continue aggressive repletion. The patient has a total body deficit of approximate ly 150 mEq. We will give 60 mEq IV. We will repeat potassium level and continue to replete as neede d. 3. Hypernatremia. Etiology is felt to be secondary to diabetes insipidus. The patient is currently on DDAVP held in the last 12 hours. Sodium levels remain elevated slowly improving. Continue to mo nitor. We will start patient on hypertonic fluid. 4. Volume overload. The patient has noted interstitial edema. We will adjust IV fluids, monitor cl osely. 5. Ventilator dependent respiratory failure. Vent settings and ABG was reviewed. Continue to monit or. 6. Mineral bone disorder. Monitor calcium and phosphorus levels. 7. Shock, etiology is multifactorial, neurogenic, septic. Continue pressor support and antibiotic t herapy. 8. Clinical brain . The patient was evaluated and determined to have brain . Pending pos sible terminal extubation to be determined family and primary team and palliative care. 9. Cardiac arrest. Etiology is unclear. 10. Lactic acidosis secondary to shock. Continue to monitor. Please note I spent over 30 minutes of critical care time with this patient. Dictated By: INDIRA GEORGE DO NR/NTS Conf#: [id number] DID#: [id number] CC: BASHIR JIMENEZ; PUNEET BOATENG MD; SELVIN FERNANDEZ MD;*EndCC*
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
[2018-10-10] MEDS: VASOPRESSIN 60 UNIT in DEXTROSE 5% 57 ML IV SCH (10:30)
[2018-10-10] MEDS ORDERED: NORepinephrine 8MG/250 ML (PMX 250 ML ONE (10:43)
--- NOTE | 2018-10-10 11:14 | CONS ---
Consult Date/Type/Reason Admit Date/Time October 05, 2018 at 06:45 Initial Consult Date 10/05/18 Type of Consult Pulmonary Requesting Provider: SIGIFREDO TOLEDO MD Date/Time of Note DATE: 10/10/18 TIME: 11:10 Subjective Events noted. Patient remains unresponsive on mechanical ventilation. Continues vasopressor support. Objective Vital Signs Date Temp Pulse Resp B/P (MAP) Pulse Ox O2 O2 Flow FiO2 Time Delivery Rate 10/10/18 97.4 57 18 109/68 99 Mechanical 08:00 (82) Ventilator 10/10/18 30 08:00 Intake and Output 10/09/18 10/09/18 10/10/18 1515:00 23:00 07:00 IntakeIntake Total 635.26 ml 1057.04 ml 1260.1 ml OutputOutput Total 102 ml 145 ml 205 ml BalanceBalance 533.26 ml 912.04 ml 1055.1 ml Exam GENERAL: Well-nourished well-developed gentleman on mechanical ventilation. VITAL SIGNS: per chart NECK: Supple. No JVD or lymphadenopathy. CARDIAC EXAM: S1, S2. No added sounds or murmurs. CHEST: clear bilaterally, No added sounds, rales or wheezes ABDOMEN: Soft, nontender. No guarding or rebound. EXTREMITIES: No cyanosis, clubbing or edema. NEUROLOGIC: Unresponsive on mechanical ventilation Pupils remain fixed and dilated conjunctival edema noted. Absent gag reflex. Vent Setting Ventilator Support Mode: AC Fraction of Inspired Oxygen pe: 30 Positive End Expiratory Pressu: 5.0 Results/Medications Result Diagram: 10/10/18 0430 10/10/18 0430 Results 24 hrs Laboratory Tests Test 10/09/18 11:17 10/09/18 12:54 10/09/18 14:08 10/09/18 15:24 Bedside Glucose 76 73 107 Sodium Level 152 H Potassium Level 4.2 Chloride Level 129 H Carbon Dioxide 20 L Level Anion Gap 3 L Blood Urea 23 H Nitrogen Creatinine 2.97 H Est Glomerular 24 L Filtrat Rate mL/min Glucose Level 103 Calcium Level 8.1 L Test 10/09/18 17:21 10/09/18 19:44 10/09/18 21:10 10/09/18 23:30 Bedside Glucose 114 103 103 247 H Test 10/09/18 23:31 10/10/18 01:10 10/10/18 02:36 10/10/18 04:30 Bedside Glucose 109 110 110 White Blood Count 8.8 # Red Blood Count 4.56 L Hemoglobin 12.4 L Hematocrit 38.7 L Mean Corpuscular 84.9 Volume Mean Corpuscular 27.2 L Hemoglobin Mean Corpuscular 32.0 Hemoglobin Concent Red Cell 15.1 H Distribution Width Platelet Count 81 #L Mean Platelet 11.0 H Volume Immature 0.700 H Granulocytes % Neutrophils % 74.2 Lymphocytes % 12.7 L Monocytes % 7.7 Eosinophils % 4.5 Basophils % 0.2 Nucleated Red 0.0 Blood Cells % Immature 0.060 H Granulocytes # Neutrophils # 6.6 Lymphocytes # 1.1 Monocytes # 0.7 Eosinophils # 0.4 Basophils # 0.0 Nucleated Red 0.0 Blood Cells # Sodium Level 152 H Potassium Level 1.8 #*L Chloride Level 129 H Carbon Dioxide 19 L Level Anion Gap 4 L Blood Urea 21 H Nitrogen Creatinine 2.65 H Est Glomerular 28 L Filtrat Rate mL/min Glucose Level 114 Calcium Level 8.2 L Phosphorus Level 2.0 L Magnesium Level 2.0 Test 10/10/18 04:39 10/10/18 10:29 Bedside Glucose 103 Blood Gas Specimen Blood arterial Source Arterial Blood 10/10/2018 10:45:30 Date Drawn AM Arterial Blood pH 7.260 *L (Temp corrected) Arterial Blood 37.5 pCO2 (Temp correct) Arterial Blood pO2 105.6 H (Temp corrected) Arterial Blood 16.5 L HCO3 Arterial Blood -9.8 L Base Excess Arterial Blood 97.6 Oxygen Saturation Willie Test ACCEPTAB Arterial Blood Gas Right Radial Puncture Site Arterial 0.3 Blood Carboxyhemog lobin Arterial Blood 0.3 Methemoglobin Blood Gas A-a O2 64.2 H Differential Oxyhemoglobin 97.0 Percent Blood Gas 37.0 Temperature Blood Gas 18.0 Respiration Rate Blood Gas Actual 18 Respiration Rate Blood Gas Modality VENT - AC FiO2 30.0 Blood Gas Tidal 500.0 Volume Blood Gas Low PEEP 5.0 Setting Blood Gas Critical Rubi PONCE RCP Value Read Back Blood Gas Notified Rubi JEROME RCP Whom Blood Gas Notified 10/10/2018 11:01:47 Time AM Medications Current Medications Dopamine HCl/ Dextrose 250 ml @ 5.966 mls/ hr TITRATE IV Last administered on 5/4/19at 23:09; Admin Dose 11.933 MLS/HR; Start 10/05/18 at 13:00 Magnesium Sulfate 50 ml @ 25 mls/hr PRN PRN IVPB PER TTM PROTOCOL Last administered on 10/05/18 19:59; Admin Dose 25 MLS/HR; Start 10/05/18 at 14:00 Midazolam HCl 50 ml @ 1 mls/hr TITRATE IV Last administered on 10/05/18 17:23; Admin Dose 1 MLS/HR; Start 10/05/18 at 16:00 Norepinephrine 32 mg/Dextrose 250 ml @ 0.47 mls/hr TITRATE IV Last admi nistered on 10/08/18 11:51; Admin Dose 7.03 MLS/HR; Start 10/05/18 at 18:30 Phenylephrine HCl 80 mg/Dextrose 250 ml @ 18.75 mls/ hr TITRATE IV Last administered on 10/10/18 06:14; Admin Dose 20.63 MLS/HR; Start 10/06/18 at 21:30 Vasopressin 60 unit/Dextrose 60 ml @ 1.2 mls/hr Q12H IV Last administered on 10/06/18 23:19; Admin Dose 1.2 MLS/HR; Start 10/06/18 at 22:30 Desmopressin Acetate (Ddavp) 2 mcg Q12 IV Last administered on 10/09/18 09:00; Admin Dose 2 MCG; Start 10/09/18 at 09:00; Status Hold Famotidine (Pepcid) 20 mg DAILY@06 GTB ; Start 10/10/18 at 06:00 Potassium Chloride 100 ml @ 50 mls/hr Q2H IVPB Last administered on 10/10/18 08:12; Admin Dose 50 MLS/HR; Start 10/10/18 at 06:30; Stop 10/10/18 at 12:29 Potassium Phosphate 40 meq/ Sodium Chloride 259.0909 ml @ 64.773 m... ONCE ONCE IVPB Last administered on 10/10/18 08:12; Admin Dose 64.773 MLS/HR; Start 10/10/18 at 07:30; Stop 10/10/18 at 11:29 Dextrose 1,000 ml @ 100 mls/hr Q10H IV ; Start 10/10/18 at 08:00 Assessment/Plan Hospital Course (Demo Recall) Assessment 1. s/p Cardiopulmonary Arrest 2. Anoxic Brain Injury--examination concerning for brain 3. s/p Polypharmacy OD 4. Shock 5. DARLING 6. Demand ischemia 7. Rhabdomyolysis RECS: 1. Cerebral perfusion study findings consistent with brain as is EEG. 2. Correct electrolyte abnormalities 3. Continue vasopressor support 4. Apnea test for confirmation of brain Extremely poor prognosis. 40 min cc time We will discuss with team [facility]II [facility]NSON [facility] October 10, 2018 11:14
[2018-10-10] MEDS: DEXTROSE 5% 1,000 ML IV SCH ×2 (12:47→21:13)
--- NOTE | 2018-10-10 13:04 | CONS ---
Assessment/Plan Assessment/Plan Hospital Course (Demo Recall) IMPRESSION: 1. Non-ST elevation myocardial infarction in the setting of cardiopulmonary arrest likely type 2 demand infarct as a result of cardiopulmonary arrest- Troponins downtrending. EF actually normal by echo this admit 2. Status post cardiopulmonary arrest, likely primary pulmonary event. 3. Congestive heart failure- BY echo diastolic acute on chronic but likely had systolic function during time of prolonged arrest 4. Respiratory failure, status post intubation. 5. Encephalopathy-brain by EEG/perfusion studies 6. Cerebral edema. 7. Renal failure. 8. Shock liver. 9. Coagulopathy. 10. Leukocytosis. 11.Hypotension-on pressors 12.Hypothermia-s/p rewarming Recc: -ICU -continue abx's and f/u cx data -overall poor prognosis -follow volume status -wean pressors as tolerated Consultation Date/Type/Reason Admit Date/Time October 05, 2018 at 06:45 Initial Consult Date 10/05/18 Type of Consult Cardiology Reason for Consultation cardiac arrest Requesting Provider: SIGIFREDO TOLEDO MD Date/Time of Note DATE: 10/10/18 TIME: 13:02 Exam/Review of Systems Vital Signs Vitals Vital Signs Date Temp Pulse Resp B/P (MAP) Pulse Ox O2 O2 Flow FiO2 Time Delivery Rate 10/10/18 81 24 91/61 (71) 91 Mechanical 12:30 Ventilator 10/10/18 97.0 12:00 10/10/18 30 08:00 Intake and Output 10/09/18 10/09/18 10/10/18 1515:00 23:00 07:00 IntakeIntake Total 635.26 ml 1057.04 ml 1282.6 ml OutputOutput Total 102 ml 145 ml 205 ml BalanceBalance 533.26 ml 912.04 ml 1077.6 ml Exam Exam Review of Systems: CONSTITUTIONAL: No fevers, chills. PULMONARY: No sob CARDIOVASCULAR: No chest pain/palpitations GASTROINTESTINAL: No nausea/vomiting. GENITOURINARY: No hematuria/dysuria. MUSCULOSKELETAL: No myagias/arthalgias. PSYCHIATRIC: The patient denies depression. NEUROLOGIC: encephalopathic Constitutional: other (encephalopathic) Psych: no complaints ENMT: mucosa pink and moist Neck: supple, jvd (9 cm water) Respiratory: diminished breath sounds (at bases/B) Cardiovascular: regular rate and rhythm Gastrointestinal: soft, non-tender Musculoskeletal: muscle tone (normal) Extremities: edema (trace/B and in UE R side) Neurological: unresponsive Labs Result Diagram: 10/10/18 0430 10/10/18 0430 Results 24hrs Laboratory Tests Test 10/09/18 14:08 10/09/18 15:24 10/09/18 17:21 10/09/18 19:44 Sodium Level 152 H Potassium Level 4.2 Chloride Level 129 H Carbon Dioxide 20 L Level Anion Gap 3 L Blood Urea 23 H Nitrogen Creatinine 2.97 H Est Glomerular 24 L Filtrat Rate mL/min Glucose Level 103 Calcium Level 8.1 L Bedside Glucose 107 114 103 Test 10/09/18 21:10 10/09/18 23:30 10/09/18 23:31 10/10/18 01:10 Bedside Glucose 103 247 H 109 110 Test 10/10/18 02:36 10/10/18 04:30 10/10/18 04:39 10/10/18 10:29 Bedside Glucose 110 103 White Blood 8.8 # Count Red Blood Count 4.56 L Hemoglobin 12.4 L Hematocrit 38.7 L Mean 84.9 Corpuscular Volume Mean 27.2 L Corpuscular Hemoglobin Mean 32.0 Corpuscular Hemoglobin Conc ent Red Cell 15.1 H Distribution Width Platelet Count 81 #L Mean Platelet 11.0 H Volume Immature 0.700 H Granulocytes % Neutrophils % 74.2 Lymphocytes % 12.7 L Monocytes % 7.7 Eosinophils % 4.5 Basophils % 0.2 Nucleated Red 0.0 Blood Cells % Immature 0.060 H Granulocytes # Neutrophils # 6.6 Lymphocytes # 1.1 Monocytes # 0.7 Eosinophils # 0.4 Basophils # 0.0 Nucleated Red 0.0 Blood Cells # Sodium Level 152 H Potassium Level 1.8 #*L Chloride Level 129 H Carbon Dioxide 19 L Level Anion Gap 4 L Blood Urea 21 H Nitrogen Creatinine 2.65 H Est Glomerular 28 L Filtrat Rate mL/min Glucose Level 114 Calcium Level 8.2 L Phosphorus 2.0 L Level Magnesium Level 2.0 Blood Gas Blood arterial Specimen Source Arterial Blood 10/10/2018 10:45: Date Drawn 30 AM Arterial Blood 7.260 *L pH (Temp corrected ) Arterial Blood 37.5 pCO2 (Temp correct) Arterial Blood 105.6 H pO2 (Temp corrected ) Arterial Blood 16.5 L HCO3 Arterial Blood -9.8 L Base Excess Arterial Blood 97.6 Oxygen Saturati on Willie Test ACCEPTAB Arterial Blood Right Radial Gas Puncture Site Arterial 0.3 Blood Carboxyhe moglobin Arterial Blood 0.3 Methemoglobin Blood Gas A-a 64.2 H O2 Differential Oxyhemoglobin 97.0 Percent Blood Gas 37.0 Temperature Blood Gas 18.0 Respiration Rate Blood Gas 18 Actual Respiration Rat e Blood Gas VENT - AC Modality FiO2 30.0 Blood Gas Tidal 500.0 Volume Blood Gas Low 5.0 PEEP Setting Blood Gas Rubi PONCE RCP Critical Value Read Back Blood Gas Rubi JEROME RCP Notified Whom Blood Gas 10/10/2018 11:01: Notified Time 47 AM Test 10/10/18 11:30 10/10/18 12:15 Blood Gas Blood arterial Blood arterial Specimen Source Arterial Blood 10/10/2018 11:35: 10/10/2018 12:15: Date Drawn 44 AM 44 PM Arterial Blood 7.337 L 7.124 *L pH (Temp corrected ) Arterial Blood 31.3 L 52.9 H pCO2 (Temp correct) Arterial Blood 531.9 H 45.9 *L pO2 (Temp corrected ) Arterial Blood 16.4 L 17.0 L HCO3 Arterial Blood -8.2 L -12.5 L Base Excess Arterial Blood 99.4 H 76.9 L Oxygen Saturati on Willie Test ACCEPTAB ACCEPTAB Arterial Blood Right Radial Right Radial Gas Puncture Site Arterial 0.3 0.1 Blood Carboxyhe moglobin Arterial Blood 0.4 0.5 Methemoglobin Blood Gas A-a 149.8 H 614.2 H O2 Differential Oxyhemoglobin 98.7 76.4 L Percent Blood Gas 37.0 37.0 Temperature Blood Gas 24.0 Respiration Rate Blood Gas 24 Actual Respiration Rat e Blood Gas VENT - AC NASAL CANNULA Modality FiO2 100.0 100.0 Blood Gas Tidal 500.0 Volume Blood Gas Low 5.0 PEEP Setting Blood Gas Rubi JEROME RCP Notified Whom Blood Gas 10/10/2018 11:47: 10/10/2018 12:28: Notified Time 02 AM 45 PM Blood Gas Rubi PONCE RCP Critical Value Read Back Medications Medications Current Medications Dopamine HCl/ Dextrose 250 ml @ 5.966 mls/ hr TITRATE IV Last administered on 10/06/18 23:09; Admin Dose 11.933 MLS/HR; Start 10/05/18 at 13:00 Magnesium Sulfate 50 ml @ 25 mls/hr PRN PRN IVPB PER TTM PROTOCOL Last administered on 10/05/18at 19:59; Admin Dose 25 MLS/HR; Start 10/05/18 at 14:00 Midazolam HCl 50 ml @ 1 mls/hr TITRATE IV Last administered on 10/05/18 17:23; Admin Dose 1 MLS/HR; Start 10/05/18 at 16:00 Norepinephrine 32 mg/Dextrose 250 ml @ 0.47 mls/hr TITRATE IV Last administered on 10/08/18 11:51; Admin Dose 7.03 MLS/HR; Start 10/05/18 at 18:30 Phenylephrine HCl 80 mg/Dextrose 250 ml @ 18.75 mls/ hr TITRATE IV Last administered on 10/10/18 06:14; Admin Dose 20.63 MLS/HR; Start 10/06/18 at 21:30 Vasopressin 60 unit/Dextrose 60 ml @ 1.2 mls/hr Q12H IV Last administered on 10/06/18 23:19; Admin Dose 1.2 MLS/HR; Start 10/06/18 at 22:30 Desmopressin Acetate (Ddavp) 2 mcg Q12 IV Last administered on 10/09/18at 09:00; Admin Dose 2 MCG; Start 10/09/18 at 09:00; Status Hold Famotidine (Pepcid) 20 mg DAILY@06 GTB ; Start 10/10/18 at 06:00 Dextrose 1,000 ml @ 100 mls/hr Q10H IV ; Start 10/10/18 at 08:00 SIGIFREDO HERMOSILLO October 10, 2018 13:04
[2018-10-11] VITALS (50 sets, daily range): BP systolic 91–133; BP diastolic 46–96; PULSE 0–61; RESP 18–24
[2018-10-11] MEDS: DEXTROSE 5% 1,000 ML IV SCH ×2 (04:56→15:54)
[2018-10-11] MEDS: PHENYLephrine 80 MG in DEXTROSE 5% 242 ML IV SCH ×2 (05:00→18:20)
--- NOTE | 2018-10-11 08:08 | PN ---
DATE: 10/11/2018 SUBJECTIVE: The patient remains critically ill. According to hospital staff, the patient will have no further aggressive intervention, no blood draws. The patient is pending possible terminal extubat ion on Monday. OBJECTIVE: VITAL SIGNS: Blood pressure is 129/93, respirations 24, pulse 60, temperature 98.6. HEENT: Head is normocephalic. Pupils are fixed and dilated. NECK: Supple. HEART: Regular rate. LUNGS: Show diminished breath sounds at the base. ABDOMEN: Soft, nontender to palpation. No rebound or guarding. EXTREMITIES: Negative for clubbing, cyanosis. Positive edema. DERMATOLOGIC: No rashes. MUSCULOSKELETAL: No joint effusion. NEUROLOGIC: The patient is obtunded. MEDICATIONS: Reviewed. LABORATORY DATA: Reviewed. IMAGING STUDIES: Reviewed. ASSESSMENT AND PLAN: 1. Nonoliguric acute kidney injury. 2. Hypokalemia. 3. Diabetes insipidus. 4. Hypernatremia. 5. Volume overload. 6. Ventilator-dependent respiratory failure. 7. Mineral bone disorder. 8. Shock. 9. Anoxic injury with brain . 10. Status post cardiac arrest. DISPOSITION: The patient has clinical brain , on ventral terminal extubation. No further aggre ssive intervention. We will sign off. Dictated By: INDIRA GEORGE DO NR/NTS Conf#: [id number] DID#: [id number] CC: BASHIR JIMENEZ; PUNEET BOATENG MD; SELVIN FERNANDEZ MD;*EndCC*
--- NOTE | 2018-10-11 08:22 | CONS ---
Assessment/Plan Assessment/Plan Assessment/Plan (Daily) Family conference with approximately 13 family members or more. All first- degree family members were there including patient's . Family members were very dissatisfied with the level of communication amongst the primary care physician and consultants. They were unhappy with the coordination of care in the communication between physicians and family members. They felt every procedure including replacing NG tube discontinuing NG tube doing a apnea study or any studies that would indicate patient's brain was criticized. Primarily because they wanted to be notified prior to those studies. They turned her intentions to me and to the [facility] services representative. They felt [facility] did not properly introduce themselves and presumably told them they represented the hospital. Know where they satisfied with their feelings that [facility] was pushing for organ donation. They use the terminology vultures. Next they were highly critical of myself as a set I did not organize care properly which was my job to foster communication between physicians and family members. They had researched [facility] and myself online and felt that my qualifications were suspect to continue in my current capacity. I will respect family's wishes. The conference continued on for approximately 90 minutes, at the end of that discussion it was decided patient would remain DO NOT RESUSCITAT E and no escalation of care. Additionally family members were informed that we cannot continue patient on a vent to later with this level of care since he is brain . Family members have been given until Monday to allow them to have other family members to arrive from out of town. They have been told in no uncertain terms if that does not occur bioethics consult will be called. Consultation Date/Type/Reason Admit Date/Time October 05, 2018 at 06:45 Date/Time of Note DATE: 10/11/18 TIME: 08:16 Past Medical History Medical History: other (Unknown) Home Meds Reported Medications Acetaminophen with Codeine (Acetaminophen-Cod #3 Tablet) 1 Each Tablet, 1 TAB PO BID PRN for PAIN, #7 TAB 10/05/18 Alprazolam* (Xanax*) 2 Mg Tablet, 2 MG PO BID PRN for ANXIETY, TAB 10/05/18 Albuterol Sulfate* (Ventolin HFA*) 18 Gm Hfa.aer.ad, 2 PUFF INHALATION Q4H, #1 INHALER 10/05/18 Medications Current Medications Phenylephrine HCl 80 mg/Dextrose 250 ml @ 18.75 mls/ hr TITRATE IV Last administered on 10/11/18at 05:00; Admin Dose 18.75 MLS/HR; Start 10/06/18 at 21:30 Dextrose 1,000 ml @ 100 mls/hr Q10H IV Last administered on 10/11/18at 04:56; Admin Dose 100 MLS/HR; Start 10/10/18 at 08:00 Allergies: Coded Allergies: peanut oil (Verified Allergy, Unknown, 10/05/18) Past Surgical History Past Surgical Hx: other (Unknown) Social History Alcohol Use: occasionally Smoking Status: Unknown if ever smoked Drug Use: marijuana, other (To be determined with patient's tox screen before being given opioids and benzodiazepine in the emergency room was positive for opioids and benzodiazepines) Exam/Review of Systems Exam Vitals Vital Signs Date Temp Pulse Resp B/P (MAP) Pulse Ox O2 O2 Flow FiO2 Time Delivery Rate 10/11/18 60 24 129/93 99 Mechanical 07:00 (105) Ventilator 10/11/18 30 05:00 10/11/18 96.0 04:00 Intake and Output 10/10/18 10/10/18 10/11/18 1515:00 23:00 07:00 IntakeIntake Total 839.5 ml 716.25 ml 831.25 ml OutputOutput Total 125 ml 570 ml 1185 ml BalanceBalance 714.5 ml 146.25 ml -353.75 ml Results Result Diagram: 10/10/18 0430 10/10/18 0430 Results 24hrs Laboratory Tests Test 10/10/18 10:29 10/10/18 11:30 10/10/18 12:15 Blood Gas Specimen Blood arterial Blood arterial Blood arterial Source Arterial Blood Date 10/10/2018 10:45:30 10/10/2018 11:35:44 10/10/2018 12:15:44 Drawn AM AM PM Arterial Blood pH 7.260 *L 7.337 L 7.124 *L (Temp corrected) Arterial Blood pCO2 37.5 31.3 L 52.9 H (Temp correct) Arterial Blood pO2 105.6 H 531.9 H 45.9 *L (Temp corrected) Arterial Blood HCO3 16.5 L 16.4 L 17.0 L Arterial Blood Base -9.8 L -8.2 L -12.5 L Excess Arterial Blood 97.6 99.4 H 76.9 L Oxygen Saturation Willie Test ACCEPTAB ACCEPTAB ACCEPTAB Arterial Blood Gas Right Radial Right Radial Right Radial Puncture Site Arterial 0.3 0.3 0.1 Blood Carboxyhemogl obin Arterial Blood 0.3 0.4 0.5 Methemoglobin Blood Gas A-a O2 64.2 H 149.8 H 614.2 H Differential Oxyhemoglobin 97.0 98.7 76.4 L Percent Blood Gas 37.0 37.0 37.0 Temperature Blood Gas 18.0 24.0 Respiration Rate Blood Gas Actual 18 24 Respiration Rate Blood Gas Modality VENT - AC VENT - AC NASAL CANNULA FiO2 30.0 100.0 100.0 Blood Gas Tidal 500.0 500.0 Volume Blood Gas Low PEEP 5.0 5.0 Setting Blood Gas Critical Rubi PONCE RCP Value Read Back Blood Gas Notified Rubi JEROME RCP Whom Blood Gas Notified 10/10/2018 11:01:47 10/10/2018 11:47:02 10/10/2018 12:28:45 Time AM AM PM Medications Medication Current Medications Phenylephrine HCl 80 mg/Dextrose 250 ml @ 18.75 mls/ hr TITRATE IV Last administered on 10/11/18at 05:00; Admin Dose 18.75 MLS/HR; Start 10/06/18 at 21:30 Dextrose 1,000 ml @ 100 mls/hr Q10H IV Last administered on 10/11/18at 04:56; Admin Dose 100 MLS/HR; Start 10/10/18 at 08:00 SAIMA WILDER October 11, 2018 08:22
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
--- NOTE | 2018-10-11 11:09 | CONS ---
Consult Date/Type/Reason Admit Date/Time October 05, 2018 at 06:45 Initial Consult Date 10/05/18 Type of Consult Pulmonary Requesting Provider: SIGIFREDO TOLEDO MD Date/Time of Note DATE: 10/11/18 TIME: 11:07 Subjective Discussion with staff updated on outcome of family conference yesterday. Objective Vital Signs Date Temp Pulse Resp B/P (MAP) Pulse Ox O2 O2 Flow FiO2 Time Delivery Rate 10/11/18 60 24 101/70 99 Mechanical 09:00 (80) Ventilator 10/11/18 97.9 08:00 10/11/18 30 08:00 Intake and Output 10/10/18 10/10/18 10/11/18 1414:59 22:59 06:59 IntakeIntake Total 739.5 ml 720.00 ml 950.00 ml OutputOutput Total 120 ml 485 ml 1285 ml BalanceBalance 619.5 ml 235.00 ml -335.00 ml Exam GENERAL: Well-nourished well-developed gentleman on mechanical ventilation. VITAL SIGNS: per chart NECK: Supple. No JVD or lymphadenopathy. CARDIAC EXAM: S1, S2. No added sounds or murmurs. CHEST: clear bilaterally, No added sounds, rales or wheezes ABDOMEN: Soft, nontender. No guarding or rebound. EXTREMITIES: No cyanosis, clubbing or edema. NEUROLOGIC: Unresponsive on mechanical ventilation Pupils remain fixed and dilated conjunctival edema noted. Absent gag reflex. Vent Setting Ventilator Support Mode: AC Fraction of Inspired Oxygen pe: 30 Positive End Expiratory Pressu: 5.0 Results/Medications Result Diagram: 10/10/18 0430 10/10/18 0430 Results 24 hrs Laboratory Tests Test 10/10/18 11:30 10/10/18 12:15 Blood Gas Specimen Source Blood arterial Blood arterial Arterial Blood Date Drawn 10/10/2018 11:35:44 AM 10/10/2018 12:15:44 PM Arterial Blood pH (Temp corrected) 7.337 L 7.124 *L Arterial Blood pCO2 (Temp correct) 31.3 L 52.9 H Arterial Blood pO2 (Temp corrected) 531.9 H 45.9 *L Arterial Blood HCO3 16.4 L 17.0 L Arterial Blood Base Excess -8.2 L -12.5 L Arterial Blood Oxygen Saturation 99.4 H 76.9 L Willie Test ACCEPTAB ACCEPTAB Arterial Blood Gas Puncture Site Right Radial Right Radial Arterial Blood Carboxyhemoglobin 0.3 0.1 Arterial Blood Methemoglobin 0.4 0.5 Blood Gas A-a O2 Differential 149.8 H 614.2 H Oxyhemoglobin Percent 98.7 76.4 L Blood Gas Temperature 37.0 37.0 Blood Gas Respiration Rate 24.0 Blood Gas Actual Respiration Rate 24 Blood Gas Modality VENT - AC NASAL CANNULA FiO2 100.0 100.0 Blood Gas Tidal Volume 500.0 Blood Gas Low PEEP Setting 5.0 Blood Gas Notified Whom Rubi JEROME RCP Blood Gas Notified Time 10/10/2018 11:47:02 AM 10/10/2018 12:28:45 PM Blood Gas Critical Value Read Back Rubi PONCE RCP Medications Current Medications Phenylephrine HCl 80 mg/Dextrose 250 ml @ 18.75 mls/ hr TITRATE IV Last administered on 10/11/18at 05:00; Admin Dose 18.75 MLS/HR; Start 10/06/18 at 21:30 Dextrose 1,000 ml @ 100 mls/hr Q10H IV Last administered on 10/11/18at 04:56; Admin Dose 100 MLS/HR; Start 10/10/18 at 08:00 Assessment/Plan Hospital Course (Demo Recall) Assessment 1. s/p Cardiopulmonary Arrest 2. Anoxic Brain Injury--examination concerning for brain 3. s/p Polypharmacy OD 4. Shock 5. DARLING 6. Demand ischemia 7. Rhabdomyolysis Recommendations Family wish to keep patient on life support pending arrival the next of kin. Anticipate removal of mechanical ventilation on Monday as agreed with family. Cerebral perfusion scan EEG and apnea testing all consistent with diagnosis of brain . We will sign off. NII JOHNSON MD, [facility] October 11, 2018 11:09
--- NOTE | 2018-10-11 17:28 | CONS ---
Assessment/Plan Assessment/Plan Hospital Course (Demo Recall) IMPRESSION: 1. Non-ST elevation myocardial infarction in the setting of cardiopulmonary arrest likely type 2 demand infarct as a result of cardiopulmonary arrest- Troponins downtrending. EF actually normal by echo this admit 2. Status post cardiopulmonary arrest, likely primary pulmonary event. 3. Congestive heart failure- BY echo diastolic acute on chronic but likely had systolic function during time of prolonged arrest 4. Respiratory failure, status post intubation. 5. Encephalopathy-brain by EEG/perfusion studies 6. Cerebral edema. 7. Renal failure. 8. Shock liver. 9. Coagulopathy. 10. Leukocytosis. 11.Hypotension-on pressors 12.Hypothermia-s/p rewarming Recc: -ICU -continue abx's and f/u cx data -overall poor prognosis -follow volume status -wean pressors as tolerated Consultation Date/Type/Reason Admit Date/Time October 05, 2018 at 06:45 Initial Consult Date 10/05/18 Type of Consult Cardiology Reason for Consultation cardiac arrest Requesting Provider: SIGIFREDO TOLEDO MD Date/Time of Note DATE: 10/11/18 TIME: 17:26 Exam/Review of Systems Vital Signs Vitals Vital Signs Date Temp Pulse Resp B/P (MAP) Pulse Ox O2 O2 Flow FiO2 Time Delivery Rate 10/11/18 61 24 122/95 98 16:30 (104) 10/11/18 97.3 Mechanical 16:00 Ventilator 10/11/18 30 15:00 Intake and Output 10/10/18 10/10/18 10/11/18 1515:00 23:00 07:00 IntakeIntake Total 839.5 ml 716.25 ml 950.00 ml OutputOutput Total 125 ml 570 ml 1405 ml BalanceBalance 714.5 ml 146.25 ml -455.00 ml Exam Exam Review of Systems: CONSTITUTIONAL: No fevers, chills. PULMONARY: No sob CARDIOVASCULAR: No chest pain/palpitations GASTROINTESTINAL: No nausea/vomiting. GENITOURINARY: No hematuria/dysuria. MUSCULOSKELETAL: No myagias/arthalgias. PSYCHIATRIC: The patient denies depression. NEUROLOGIC: encephalopathic Constitutional: other (encephalopathic) Psych: no complaints Head: normocephalic ENMT: intubated Neck: supple, jvd (9 cm water) Respiratory: diminished breath sounds Cardiovascular: regular rate and rhythm Gastrointestinal: soft, non-tender Musculoskeletal: muscle tone (normal) Extremities: edema (none) Labs Result Diagram: 10/10/1842910/10/18429 Medications Medications Current Medications Phenylephrine HCl 80 mg/Dextrose 250 ml @ 18.75 mls/ hr TITRATE IV Last administered on 10/11/18at 05:00; Admin Dose 18.75 MLS/HR; Start 10/06/18 at 21:30 Dextrose 1,000 ml @ 100 mls/hr Q10H IV Last administered on 10/11/18at 15:54; Admin Dose 100 MLS/HR; Start 10/10/18 at 08:00 SIGIFREDO HERMOSILLO October 11, 2018 17:28
[2018-10-11] MEDS ORDERED: morphine 4 MG/ML VIAL IV STA (22:37)
[2018-10-11] MEDS ORDERED: morphine (DRIP) 100 MG/100 ML 100 ML IV SCH (23:00)
--- NOTE | 2018-10-12 08:27 | EN ---
Date/Time of Note Date/Time of Note DATE: 10/12/18 TIME: 08:25 Event Note Medicine Medicine Event Note Patient decided last night to terminally extubate. I spoke with the brother of the patient who stated family is ready for terminal extubation. Patient was terminally extubated and shortly after he had . Physical examination, he had no pulse, no gag or corneal reflex, pupils unreactive to light, unresponsive to painful stimuli. Patient was pronounced at 12 00 a.m. on 10/12/2018. Multiple family members were at the bedside. KAREN DIAZ MD October 12, 2018 08:27
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
--- NOTE | 2018-10-12 16:27 | RADRPT ---
Vent Rate: 106 bpm RR Interval: 0 msec [place] Interval: 140 msec QRS Duration: 82 msec QT Interval: 406 msec QTC Interval: 539 msec P-R-T [place]: 58 - 61 - [address] elevation, consider inferior injury or acute infarct Abnormal ECG Electronically Signed By: Edgar Weller
== END 2018-10-12 | disposition expired | DRG 917 ==
LOC: E/R 05:41 → ICU 06:45 → SUATTDRO 08:33
PROVIDERS: ADMIT Family Medicine; ATTEND Hospitalist
PROC: 02HV33Z Insertion of Infusion Device into Superior Vena Cava, Percutaneous Approach (ICD-10-PCS; principal; 2018-10-05)
PROC: 5A1955Z Respiratory Ventilation, Greater than 96 Consecutive Hours (ICD-10-PCS; 2018-10-05)
PROC: 0BH18EZ Insertion of Endotracheal Airway into Trachea, Via Natural or Artificial Opening Endoscopic (ICD-10-PCS; 2018-10-05)
PROC: 5A12012 Performance of Cardiac Output, Single, Manual (ICD-10-PCS; 2018-10-05)
DX: T40.2X1A Poisoning by other opioids, accidental (unintentional), initial encounter (principal); J96.01 Acute respiratory failure with hypoxia; G93.6 Cerebral edema; N17.0 Acute kidney failure with tubular necrosis; K72.00 Acute and subacute hepatic failure without coma; I21.A1 Myocardial infarction type 2; J96.02 Acute respiratory failure with hypercapnia; I50.31 Acute diastolic (congestive) heart failure; R57.9 Shock, unspecified; G93.1 Anoxic brain damage, not elsewhere classified; E87.4 Mixed disorder of acid-base balance; D68.9 Coagulation defect, unspecified; M62.82 Rhabdomyolysis; E87.0 Hyperosmolality and hypernatremia; I46.8 Cardiac arrest due to other underlying condition; T42.4X1A Poisoning by benzodiazepines, accidental (unintentional), initial encounter; J45.909 Unspecified asthma, uncomplicated; E87.5 Hyperkalemia; G47.33 Obstructive sleep apnea (adult) (pediatric); I49.01 Ventricular fibrillation; E87.6 Hypokalemia; Y92.009 Unspecified place in unspecified non-institutional (private) residence as the place of occurrence of the external cause; Z87.820 Personal history of traumatic brain injury
CPT/HCPCS: 31500; 36415; 36600; 70450; 71045; 71250; 74176; 76775; 78606; 80048; 80053; 80307; 81001; 81003; 82043; 82150; 82550; 82553; 82803; 82962; 83036; 83605; 83690; 83735; 83935; 84100; 84155; 84300; 84484; 85025; 85049; 85362; 85378; 85384; 85610; 85670; 85730; 86850; 86900; 86901; 87070; 87081; 87086; 92950; 93005; 93306; 94002; 94003; 94770; 96374; A9512; C9113; J0171; J0692; J1265; J1815; J2250; J2270; J2543; J3370; J3475; J3480; J7030; J7040; J7050; J7070